=== PATIENT | female | born 1960 | race Caucasian/White ===

== ENCOUNTER 2017-11-17 20:31 | Emergency (ER) | payer MEDICARE ==
[~2017-11-17] VITALS: Ht 165.1 cm; Wt 60.0 kg
[2017-11-17 20:32] VITALS: BP 160/91; PULSE 112; RESP 18; TEMP 97.9; O2SAT 95
[2017-11-17 20:51] VITALS: BP 141/73; PULSE 107; RESP 20; TEMP 97.8; O2SAT 100
[2017-11-17] MEDS ORDERED: SODIUM CHLOR 0.9% 1000 ML INJ 1,000 ML IV SCH (20:51)
[2017-11-17] MEDS ORDERED: SODIUM CHLORIDE 0.9% FLUSH 10 ML FLUSH IV FLUSH PRN ×2 (21:00→21:15)
[2017-11-17] MEDS ORDERED: ONDANSETRON HCL 4 MG/2 ML VIAL IVP ONE (21:00)
[2017-11-17] MEDS ORDERED: MORPHINE SULFATE 4 MG/ML INJ IV PUSH ONE (21:00)
--- NOTE | 2017-11-17 21:42 | PD ---
HPI Chief Complaint: GI Complaint Time Seen by Provider: 20:48 Travel History International Travel<30 days: No Contact w/Intl Traveler<30days: No Traveled to known affect area: No History of Present Illness HPI The patient is a 57-year-old female presenting to emergency for evaluation of a rectal prolapse. Patient states that she was attempting to have a bowel movement this morning when she strained resulting in prolapse. Patient states it's painful and sore, she reports the pain is a 10 out of 10. There are no alleviating factors, it is exacerbated with any movement or sitting. Onset was sudden. Patient denies any history of GI issues. Patient states that she's been constipated lately. She reports a past medical history significant for COPD. [facility] Past Medical History COPD: Yes Medical other: Yes (PTSD) Influenza Vaccination: No ?: Not Past Surgical History Section: Yes Social History Alcohol Use: Yes (SOCIALLY ON THE WEEKENDS ) Tobacco Use: Yes (PACK A DAY ) Substance Use: No Allergies-Medications (Allergen,Severity, Reaction): Coded Allergies: No Known Allergies (Verified Allergy, Unknown, 11/17/17) Reported Meds & Prescriptions Reported Meds & Active Scripts Active Miralax Powder (Polyethylene Glycol 3350 Powder) 17 Gm Powd 17 Gm PO DAILY Mix and dissolve one measuring cap-ful (17 grams) in water or juice. Colace (Docusate Sodium) 100 Mg Capsule 1 Cap PO BID Review of Systems Except as stated in HPI: all other systems reviewed are Neg Gastrointestinal: Positive: Constipation, Other (rectal prolapse) Physical Exam Narrative GENERAL: Thin, well-developed, alert female. Appears uncomfortable, in no acute distress. SKIN: Warm and dry. HEAD: Atraumatic. Normocephalic. EYES: Pupils equal and round. No scleral icterus. No injection or drainage. ENT: No nasal bleeding or discharge. Mucous membranes pink and moist. NECK: Trachea midline. No JVD. CARDIOVASCULAR: Tachycardic. RESPIRATORY: No accessory muscle use. Clear to auscultation. Breath sounds equal bilaterally. GASTROINTESTINAL: Abdomen soft, non-tender, nondistended. Hepatic and splenic margins not palpable. Approximately 4 cm of pink bowel protruding from the anus , no bleeding noted. Positive bowel sounds. MUSCULOSKELETAL: Extremities without clubbing, cyanosis, or edema. No obvious deformities. NEUROLOGICAL: Awake and alert. No obvious cranial nerve deficits. Motor grossly within normal limits. Five out of 5 muscle strength in the arms and legs. Normal speech. PSYCHIATRIC: Appropriate mood and affect; insight and judgment normal. Data Data Last Documented VS Vital Signs Date Time Temp Pulse Resp B/P (MAP) Pulse Ox O2 Delivery O2 Flow Rate FiO2 11/17/17 20:51 97.8 107 20 141/73 (95) 100 Room Air Orders Orders Iv Access Insert/Monitor (11/17/17 20:51) Ecg Monitoring (11/17/17 20:51) Oximetry (11/17/17 20:51) Morphine Inj (Morphine Inj) (11/17/17 21:00) Ondansetron Inj (Zofran Inj) (11/17/17 21:00) Sodium Chlor 0.9% 1000 Ml Inj (Ns 1000 M (11/17/17 20:51) Sodium Chloride 0.9% Flush (Ns Flush) (11/17/17 21:00) Complete Blood Count With Diff (11/17/17 21:09) Comprehensive Metabolic Panel (11/17/17 21:09) Prothrombin Time / Inr (Pt) (11/17/17 21:09) Act Partial Throm Time (Ptt) (11/17/17 21:09) Abdomen, Flat & Upright (11/17/17 ) Sodium Chloride 0.9% Flush (Ns Flush) (11/17/17 21:15) Ed Discharge Order (11/17/17 22:46) Labs Laboratory Tests Test 11/17/17 21:00 Prothrombin Time 14.0 SEC Prothromb Time International Ratio 1.4 RATIO Activated Partial Thromboplast Time 27.3 SEC Blood Urea Nitrogen 5 MG/DL Creatinine 0.47 MG/DL Random Glucose 131 MG/DL Total Protein 7.8 GM/DL Albumin 2.9 GM/DL Calcium Level 8.8 MG/DL Alkaline Phosphatase 289 U/L Aspartate Amino Transf (AST/SGOT) 210 U/L Alanine Aminotransferase (ALT/SGPT) 83 U/L Total Bilirubin 2.6 MG/DL Sodium Level 141 MEQ/L Potassium Level 3.4 MEQ/L Chloride Level 106 MEQ/L Carbon Dioxide Level 29.8 MEQ/L Anion Gap 5 MEQ/L Estimat Glomerular Filtration Rate 137 ML/MIN MDM Medical Decision Making Medical Screen Exam Complete: Yes Emergency Medical Condition: Yes Interpretation(s) Last Impressions Abdomen X-Ray 11/17/17 0000 Signed Impressions: Service Date/Time: Friday, November 17, 2017 21:32 - CONCLUSION: Mildly distended gas-filled loops of small bowel within the left upper quadrant. This is a nonspecific pattern. 1.4 cm right renal stone. Steve King Jr., MD Laboratory Tests Test 11/17/17 21:00 Prothrombin Time 14.0 SEC Prothromb Time International Ratio 1.4 RATIO Activated Partial Thromboplast Time 27.3 SEC Blood Urea Nitrogen 5 MG/DL Creatinine 0.47 MG/DL Random Glucose 131 MG/DL Total Protein 7.8 GM/DL Albumin 2.9 GM/DL Calcium Level 8.8 MG/DL Alkaline Phosphatase 289 U/L Aspartate Amino Transf (AST/SGOT) 210 U/L Alanine Aminotransferase (ALT/SGPT) 83 U/L Total Bilirubin 2.6 MG/DL Sodium Level 141 MEQ/L Potassium Level 3.4 MEQ/L Chloride Level 106 MEQ/L Carbon Dioxide Level 29.8 MEQ/L Anion Gap 5 MEQ/L Estimat Glomerular Filtration Rate 137 ML/MIN Vital Signs Date Time Temp Pulse Resp B/P (MAP) Pulse Ox O2 Delivery O2 Flow Rate FiO2 11/17/17 20:51 97.8 107 20 141/73 (95) 100 Room Air 11/17/17 20:32 97.9 112 18 160/91 (114) 95 Room Air Differential Diagnosis Rectal prolapse versus bowel obstruction versus intussusception versus other Narrative Course Patient is a 57 year old female that presented to the emergency department evaluation of rectal prolapse that occurred this morning and attempted to have a bowel movement. Patient was tachycardic on arrival and appeared to be in pain. IV access established, patient was premedicated with morphine and Zofran and 1 L of IV fluids. After patient was given pain medication prolapse rectum was gently guided back into the anus. Labs and imaging ordered and pending. Patient's is at bedside. Patient appears to be resting comfortably. Abdominal xray shows mildly distended gas-filled loops of small bowel in the left upper quadrant. This is nonspecific. 1.4 centimeter right renal stone. Chemistry with elevated AST and ALT at 210 and 83 Patient was able to ambulate without any recurrence of prolapse. Patient will be provided with prescriptions for bowel regimen. She was encouraged to increase fluid intake, avoid any narcotic medications. She was encouraged to follow-up with her primary doctor and GI specialist in the next 2-3 days. Additionally patient was given strict return precautions. She was encouraged to return immediately for any new or worsening symptoms. Patient verbalized understanding of these instructions. Patient is stable for discharge. Findings and plan of care were discussed with attending physician. Diagnosis Primary Impression: Rectal prolapse Additional Impressions: Constipation Qualified Codes: K59.00 - Constipation, unspecified Abnormal LFTs (liver function tests) Referrals: Policy Cancellation Clerk 2 days Primary Care Physician 2 days Patient Instructions: Constipation (ED), General Instructions, Rectal Prolapse (ED) Additional Instructions: Follow up with Policy Cancellation Clerk Follow up with your primary care provider Maintain adequate fluid intake Take medications as directed. Return to the Emergency department for any new or worsening symptoms as discussed. Your liver enzymes were elevated in the emergency department, please discussed with her primary doctor. Med/Other Pt SpecificInfo: Prescription(s) given Scripts Polyethylene Glycol 3350 Powder (Miralax Powder) 17 Gm Powd 17 GM PO DAILY for Constipation, #1 CAN 1 Refill Mix and dissolve one measuring cap-ful (17 grams) in water or juice. Prov: Amy Scruggs 11/17/17 Docusate Sodium (Colace) 100 Mg Capsule 1 CAP PO BID, #60 Prov: Amy Scruggs 11/17/17 Disposition: 01 DISCHARGE HOME Condition: Stable Amy Scruggs Nov 17, 2017 21:42
[2017-11-17 21:58] LABS: INTERNATIONAL NORMALIZED RATIO 1.4 RATIO
--- NOTE | 2017-11-17 22:03 | RADRPT ---
EXAM DATE/TIME: 11/17/2017 21:32 [facility] COMPARISON: No previous studies available for comparison. INDICATIONS : Abdominal pain, in lower abdomen. MEDICAL HISTORY : None. SURGICAL HISTORY : None. ENCOUNTER: Initial ACUITY: 1 day PAIN SCORE: 8/10 LOCATION: Bilateral abdomen FINDINGS: Supine and upright views of the abdomen show mildly distended gas-filled loops of small bowel within the left upper quadrant. No gross dilatation. Colon is normal in caliber. Gas and stool seen to the l evel of the rectal vault. No air-fluid levels or pneumoperitoneum. A 1.4 cm calcification projects ov er the renal hilum on the right. The left renal contour is obscured. Bony structures are unremarkable . No organomegaly. Lung bases are clear. CONCLUSION: Mildly distended gas-filled loops of small bowel within the left upper quadrant. This is a nonspecifi c pattern. 1.4 cm right renal stone. Steve King Jr., MD on November 17, 2017 at 22:00 Board Certified Radiologist. This report was verified electronically.
[2017-11-17 22:05] LABS: ALBUMIN 2.9 GM/DL (3.4-5.0); AST (GOT) 210 U/L (15-37); BICARBONATE 29.8 MEQ/L (21.0-32.0); BLOOD UREA NITROGEN 5 MG/DL (7-18); CALCIUM 8.8 MG/DL (8.5-10.1); CHLORIDE 106 MEQ/L (98-107); CREATININE 0.47 MG/DL (0.50-1.00); GLOMERULAR FILTRATION RATE 137 ML/MIN (>89); GLUCOSE,RANDOM 131 MG/DL (74-106); SODIUM (NA) 141 MEQ/L (136-145)
[2017-11-17 22:10] LABS: ALKALINE PHOSPHATASE 289 U/L (45-117); ALT (GPT) 83 U/L (10-53); TOTAL BILIRUBIN ADULT 2.6 MG/DL (0.2-1.0); TOTAL PROTEIN 7.8 GM/DL (6.4-8.2)
[2017-11-17] MEDS ORDERED: MIRA3350 PO (22:46)
[2017-11-17] MEDS ORDERED: COLA100C5 PO (22:46)
[2017-11-17 22:54] LABS: AUTOMATED NEUTROPHIL # 1.9 TH/MM3 (1.8-7.7); BASOPHIL % 1.2 % (0.0-2.0); EOSINOPHIL % 1.3 % (0.0-4.0); HEMATOCRIT 41.7 % (35.0-46.0); HEMOGLOBIN 14.2 GM/DL (11.6-15.3); LYMPH % 40.1 % (9.0-44.0); LYMPHOCYTE # 1.5 TH/MM3 (1.0-4.8); MEAN CELL VOLUME 102.3 FL (80.0-100.0); MEAN CORPUSCULAR HEMOGLOBIN 34.9 PG (27.0-34.0); MEAN CORPUSCULAR HGB CONC 34.1 % (32.0-36.0); MEAN PLATELET VOLUME 8.1 FL (7.0-11.0); MONO % 6.5 % (0.0-8.0); MONOCYTE # 0.2 TH/MM3 (0-0.9); NEUT % 50.9 % (16.0-70.0); PLATELET COUNT 77 TH/MM3 (150-450); RED BLOOD COUNT 4.07 MIL/MM3 (4.00-5.30); RED CELL DISTRIBUTION WIDTH 16.7 % (11.6-17.2); WHITE BLOOD COUNT 3.7 TH/MM3 (4.0-11.0)
== END 2017-11-17 22:58 | disposition home or self-care (01) ==
LOC: NEPC 20:31
DX: K62.3 Rectal prolapse (principal); K59.00 Constipation, unspecified; R79.89 Other specified abnormal findings of blood chemistry; F17.200 Nicotine dependence, unspecified, uncomplicated; Z87.09 Personal history of other diseases of the respiratory system; Z86.59 Personal history of other mental and behavioral disorders
CPT/HCPCS: 74019; 80053; 85025; 85610; 85730; 96374; 96375; 99284; J2270; J2405; J7030

== ENCOUNTER 2017-12-09 20:02 | Inpatient (IN) | payer OTHER, MEDICARE ==
[~2017-12-09] VITALS: Ht 165.1 cm; Wt 63.6 kg
[~2017-12-09 20:02] MED LIST: COLA100C5 PO; MIRA3350 PO
[2017-12-09 20:04] VITALS: BP 140/65; PULSE 96; RESP 16; TEMP 98.1; O2SAT 96
[2017-12-09 20:23] VITALS: BP 118/56; PULSE 96; RESP 18; O2SAT 99
[2017-12-09] MEDS ORDERED: GABA600T PO (20:23)
--- NOTE | 2017-12-09 20:43 | PD ---
HPI Chief Complaint: Abdominal Pain Time Seen by Provider: 20:38 Travel History International Travel<30 days: No Contact w/Intl Traveler<30days: No Traveled to known affect area: No History of Present Illness HPI 57-year-old female presents to the emergency department for 1 week of left- sided abdominal pain and red blood per rectum with recent diagnosis of rectal prolapse with multiple episodes of prolapsing of the rectum that is able to be manually reduced by the patient. Patient has history of COPD tobaccoism alcohol use and is followed by the [facility]. Patient has made an appointment to follow-up with a colorectal surgeon but does not have the appointment until December. Patient reports that she has had mild temperature elevation of 99F. Patient has had nausea without vomiting. Patient states due to her pain and episodes of rectal prolapse she has decreased oral intake. Patient rates her current pain to the left lower quadrant 8/10 in intensity. PFSH Past Medical History Narrative Medical COPD, posttraumatic stress disorder, lung cancer with metastasis (declined treatment x 14 months per patient), ,tobacco use, alcohol use, nursing notes reviewed Cancer: Yes (LUNG WITH METS) COPD: Yes Gastrointestinal Disorders: Yes (RECTAL PROLAPSE) Tetanus Vaccination: < 5 Years Influenza Vaccination: Yes Past Surgical History Section: Yes Social History Alcohol Use: Yes (SOCIALLY ON THE WEEKENDS ) Tobacco Use: Yes (PACK A DAY ) Substance Use: No Allergies-Medications (Allergen,Severity, Reaction): Coded Allergies: No Known Allergies (Verified Allergy, Unknown, 11/17/17) Reported Meds & Prescriptions Reported Meds & Active Scripts Active Reported Gabapentin 600 Mg Tab 600 Mg PO BID Review of Systems Except as stated in HPI: all other systems reviewed are Neg General / Constitutional: Positive: Fever (Subjective) Eyes: No: Diploplia HENT: No: Headaches Cardiovascular: No: Chest Pain or Discomfort Respiratory: No: Shortness of Breath Gastrointestinal: Positive: Nausea, Abdominal Pain, Hematochezia Genitourinary: No: Dysuria Musculoskeletal: No: Myalgias, Arthralgias Neurologic: No: Weakness Psychiatric: Positive: Anxiety Hematologic/Lymphatic: No: Lymph Node Enlargement Physical Exam Narrative GENERAL: Well-developed well-nourished female in no acute distress no respiratory distress SKIN: Warm and dry. HEAD: Normocephalic. EYES: No scleral icterus. No injection or drainage. NECK: Supple, trachea midline. No JVD or lymphadenopathy. CARDIOVASCULAR: Regular rate and rhythm without murmurs, gallops, or rubs. RESPIRATORY: Breath sounds equal bilaterally. No accessory muscle use. GASTROINTESTINAL: Abdomen soft, left lower quadrant tenderness to palpation without guarding or rebound, nondistended. Rectal exam: MUSCULOSKELETAL: No cyanosis, or edema. BACK: Nontender without obvious deformity. No CVA tenderness. Data Data Last Documented VS Vital Signs Date Time Temp Pulse Resp B/P (MAP) Pulse Ox O2 Delivery O2 Flow Rate FiO2 12/10/17 00:00 84 16 122/59 (80) 95 Room Air 12/09/17 20:04 98.1 Orders Orders Complete Blood Count With Diff (12/09/17 20:23) Basic Metabolic Panel (Bmp) (12/09/17 20:23) Lipase (12/09/17 20:23) Electrocardiogram (12/09/17 ) Iv Access Insert/Monitor (12/09/17 20:23) Urinalysis - C+S If Indicated (12/09/17 20:23) Prothrombin Time / Inr (Pt) (12/09/17 20:24) Act Partial Throm Time (Ptt) (12/09/17 20:24) Type And Screen (12/09/17 20:26) Ct Abd/Pel W Iv Contrast(Rout) (12/09/17 ) Chest, Single Ap (12/09/17 ) Ondansetron Inj (Zofran Inj) (12/09/17 21:00) Morphine Inj (Morphine Inj) (12/09/17 21:00) Iohexol 350 Inj (Omnipaque 350 Inj) (12/09/17 22:15) Potassium Chlor 10 Meq Premix (Kcl 10 Me (12/09/17 22:30) Urine Culture (12/09/17 21:35) Blood Culture (12/09/17 22:57) Lactic Acid (12/09/17 22:57) Piperacil-Tazo 4.5 Gm Premix (Zosyn 4.5 (12/09/17 23:00) Admit Order (Ed Use Only) (12/10/17 ) Tubing Supervisor / Telemetry DALE.[email or web address] (12/10/17 00:37) Diet Npo (12/10/17 Breakfast) Activity Oob With Assistance (12/10/17 00:37) Notify Dr: Other (12/10/17 00:37) Ondansetron Inj (Zofran Inj) (12/10/17 00:45) Morphine Inj (Morphine Inj) (12/10/17 00:45) Labs Laboratory Tests Test 12/09/17 20:30 12/09/17 21:35 12/09/17 23:15 White Blood Count 4.9 TH/MM3 Red Blood Count 3.74 MIL/MM3 Hemoglobin 13.3 GM/DL Hematocrit 37.6 % Mean Corpuscular Volume 100.7 FL Mean Corpuscular Hemoglobin 35.7 PG Mean Corpuscular Hemoglobin Concent 35.4 % Red Cell Distribution Width 15.2 % Platelet Count 87 TH/MM3 Mean Platelet Volume 8.2 FL Neutrophils (%) (Auto) 60.0 % Lymphocytes (%) (Auto) 29.2 % Monocytes (%) (Auto) 7.3 % Eosinophils (%) (Auto) 2.2 % Basophils (%) (Auto) 1.3 % Neutrophils # (Auto) 2.9 TH/MM3 Lymphocytes # (Auto) 1.4 TH/MM3 Monocytes # (Auto) 0.4 TH/MM3 Eosinophils # (Auto) 0.1 TH/MM3 Basophils # (Auto) 0.1 TH/MM3 CBC Comment AUTO DIFF Differential Comment AUTO DIFF CONFIRMED Platelet Estimate LOW Platelet Morphology Comment NORMAL Prothrombin Time 13.7 SEC Prothromb Time International Ratio 1.4 RATIO Activated Partial Thromboplast Time 26.8 SEC Blood Urea Nitrogen 11 MG/DL Creatinine 0.54 MG/DL Random Glucose 109 MG/DL Calcium Level 8.6 MG/DL Sodium Level 139 MEQ/L Potassium Level 2.9 MEQ/L Chloride Level 105 MEQ/L Carbon Dioxide Level 26.2 MEQ/L Anion Gap 8 MEQ/L Estimat Glomerular Filtration Rate 117 ML/MIN Lipase 123 U/L Urine Color YELLOW Urine Turbidity HAZY Urine pH 6.0 Urine Specific [place] 1.015 Urine Protein NEG mg/dL Urine Glucose (UA) NEG mg/dL Urine Ketones NEG mg/dL Urine Occult Blood TRACE Urine Nitrite NEG Urine Bilirubin NEG Urine Urobilinogen GREATER THAN 12.0 MG/DL Urine Leukocyte Esterase TRACE Urine RBC 2 /hpf Urine WBC 2 /hpf Urine Squamous Epithelial Cells 4 /hpf Urine Amorphous Sediment RARE Urine Bacteria MANY /hpf Urine Mucus FEW /lpf Microscopic Urinalysis Comment CULTURE INDICATED Lactic Acid Level 1.5 mmol/L MDM Medical Decision Making Medical Screen Exam Complete: Yes Emergency Medical Condition: Yes Medical Record Reviewed: Yes Interpretation(s) EKG: Normal sinus rhythm rate [address] elevation injury pattern or ectopy noted Last Impressions Chest X-Ray 12/09/17 0000 Signed Impressions: Service Date/Time: Saturday, December 09, 2017 21:02 - CONCLUSION: The lungs are clear. Steve Alamo MD Abdomen/Pelvis CT 12/09/17 0000 Signed Impressions: Service Date/Time: Saturday, December 09, 2017 22:10 - CONCLUSION: 1. Abnormal appearance of the gallbladder with distention, thickened wall, possible pericholecystic fluid, and a 11 mm calcified stone near the neck. 2. Findings suggest pelvic congestion syndrome with multiple prominent varices in the cul-de-sac and free fluid in the right dependent pelvis. 3. Questionable wall thickening in the right colon and cecum. 4. Dilation of the duodenal C-loop is of uncertain significance. There is no dilation of the remainder of the small bowel. 5. Focal parenchymal opacity in the right costophrenic angle characterized by increased ground substance. Steve Alamo MD CBC & BMP Diagram 12/09/17 20:30 Calcium Level 8.6 Vital Signs Date Time Temp Pulse Resp B/P (MAP) Pulse Ox O2 Delivery O2 Flow Rate FiO2 12/10/17 00:00 84 16 122/59 (80) 95 Room Air 12/09/17 22:00 78 16 120/57 (78) 98 Room Air 12/09/17 20:23 96 18 118/56 (76) 99 Room Air 12/09/17 20:04 98.1 96 16 140/65 (90) 96 Differential Diagnosis Abdominal pain, rectal prolapse, colitis, diverticulitis, ischemic colitis, also to consider intussusception, volvulus, dehydration Narrative Course IV access obtained specimens collected and sent for resulting patient administered morphine sulfate 1 dose and Zofran Patient administered IV fluids Patient identified to have normal CBC with normal range differential and thrombocytopenia; chemistries remarkable for hypo-kalemia and urinalysis was abnormal with bacteria CT abdomen pelvis performed and remarkable for gallbladder wall thickening without pericholecystic fluid and 1.1 cm stone at the gallbladder neck. Pancreas appeared normal and appendix appeared normal however patient was identified to have intestinal inflammatory changes as well as pelvic varices and pelvic congestion with fluid in the pelvis no free air Patient with history of lung cancer with metastatic disease has refused surgery chemotherapy and radiation therapy with abnormal CT abdomen and pelvis with fluid in the pelvis also with recent rectal prolapse without evidence of acute prolapse at this time with hematochezia and passing blood clots will need admission for IV antibiotics and further evaluation of intestinal issues as well as DIVING SUPERVISOR evaluation for possible pelvic congestion syndrome and IV antibiotics and further evaluation for cholecystitis. Patient's case has been discussed with medicine service for admission. Physician Communication Physician Communication discussed with Dr Penny--admit to Dr Avila's aervice Diagnosis Primary Impression: Abdominal pain Additional Impressions: Cholecystitis Colitis Pelvic congestion syndrome Admitting Information Admitting Physician Requests: Admit Naida Herrera MD Dec 09, 2017 20:43
[2017-12-09] MEDS ORDERED: ONDANSETRON HCL 4 MG/2 ML VIAL IV PUSH ONE (21:00)
[2017-12-09] MEDS ORDERED: MORPHINE SULFATE 2 MG/ML INJ IV PUSH ONE (21:00)
--- NOTE | 2017-12-09 21:11 | RADRPT ---
EXAM DATE/TIME: 12/09/2017 21:02 [facility] COMPARISON: No previous studies available for comparison. INDICATIONS : Chest discomfort. MEDICAL HISTORY : Chronic obstructive pulmonary disease. Lung cancer with mets. SURGICAL HISTORY : None. ENCOUNTER: Initial ACUITY: 1 day PAIN SCORE: 2/10 LOCATION: Bilateral chest FINDINGS: A single view of the chest demonstrates the lungs to be symmetrically aerated without evidence of mas s, infiltrate or effusion. The cardiomediastinal contours are unremarkable. Osseous structures are intact. CONCLUSION: The lungs are clear. Steve Alamo MD on December 09, 2017 at 21:09 Board Certified Radiologist. This report was verified electronically.
[2017-12-09 21:14] LABS: BICARBONATE 26.2 MEQ/L (21.0-32.0); CALCIUM 8.6 MG/DL (8.5-10.1); CREATININE 0.54 MG/DL (0.50-1.00)
[2017-12-09 21:22] LABS: AUTOMATED NEUTROPHIL # 2.9 TH/MM3 (1.8-7.7); BASOPHIL # 0.1 TH/MM3 (0-0.2); BASOPHIL % 1.3 % (0.0-2.0); EOSINOPHIL # 0.1 TH/MM3 (0-0.4); EOSINOPHIL % 2.2 % (0.0-4.0); HEMATOCRIT 37.6 % (35.0-46.0); HEMOGLOBIN 13.3 GM/DL (11.6-15.3); LYMPH % 29.2 % (9.0-44.0); LYMPHOCYTE # 1.4 TH/MM3 (1.0-4.8); MEAN CELL VOLUME 100.7 FL (80.0-100.0); MEAN CORPUSCULAR HEMOGLOBIN 35.7 PG (27.0-34.0); MEAN CORPUSCULAR HGB CONC 35.4 % (32.0-36.0); MEAN PLATELET VOLUME 8.2 FL (7.0-11.0); MONO % 7.3 % (0.0-8.0); MONOCYTE # 0.4 TH/MM3 (0-0.9); PLATELET COUNT 87 TH/MM3 (150-450); RED BLOOD COUNT 3.74 MIL/MM3 (4.00-5.30); RED CELL DISTRIBUTION WIDTH 15.2 % (11.6-17.2); WHITE BLOOD COUNT 4.9 TH/MM3 (4.0-11.0)
[2017-12-09 21:25] LABS: INTERNATIONAL NORMALIZED RATIO 1.4 RATIO; PROTHROMBIN TIME - PATIENT 13.7 SEC (9.8-11.6)
[2017-12-09 22:00] VITALS: BP 120/57; PULSE 78; RESP 16; O2SAT 98
[2017-12-09] MEDS ORDERED: IOHEXOL 350 MG/ML 10 ML VIAL (for RAD DIAG) IVCONTRAST ONE (22:15)
[2017-12-09 22:29] LABS: AMORPHOUS SEDIMENT, URINE RARE; BACTERIA, URINE MANY /hpf; BLOOD, URINE TRACE (NEG); GLUCOSE,URINE NEG (NEG); KETONE, URINE NEG (NEG); MUCUS URINE FEW /lpf (OCC); NITRITE,URINE NEG (NEG); SQUAMOUS EPITHELIAL CELL URINE 4 /hpf (0-5); URINE COLOR YELLOW (YELLW/STRAW); URINE LEUKOCYTE ESTERASE TRACE (NEG)
[2017-12-09 22:30] LABS: BILIRUBIN, URINE NEG (NEG)
[2017-12-09] MEDS ORDERED: POTASSIUM CHLOR 10 MEQ PREMIX 100 ML IV ONE (22:30)
--- NOTE | 2017-12-09 22:32 | RADRPT ---
EXAM DATE/TIME: 12/09/2017 22:10 [facility] COMPARISON: No previous studies available for comparison. INDICATIONS : Epigastric pain radiating to left lower quadrant. IV CONTRAST: 77 cc Omnipaque 350 (iohexol) IV ORAL CONTRAST: No oral contrast ingested. RADIATION DOSE: 6.64 CTDIvol (mGy) MEDICAL HISTORY : Chronic obstructive pulmonary disease. Lung cancer with mets. Rectal prolapse. SURGICAL HISTORY : section. ENCOUNTER: Initial ACUITY: 1 day PAIN SCALE: 8/10 LOCATION: Left lower quadrant TECHNIQUE: Volumetric scanning of the abdomen and pelvis was performed. Using automated exposure control and ad justment of the mA and/or kV according to patient size, radiation dose was kept as low as reasonably achievable to obtain optimal diagnostic quality images. DICOM format image data is available electro nically for review and comparison. FINDINGS: LOWER LUNGS: Subsegmental area of increased ground substance in the lower lateral right lung. No evidence of pleu ral effusion. LIVER: Mild nodular contour to the surface of the right lobe of the liver. Homogeneous density without lesi on. There is no dilation of the biliary tree. The gallbladder is distended and there is suggestion of pericholecystic fluid. There is a 11 mm calcified stone in the region of the neck suggesting poss ible impacted stone.. SPLEEN: Normal size without lesion. PANCREAS: Within normal limits. KIDNEYS: Normal in size and shape. There is no mass, stone or hydronephrosis. ADRENAL GLANDS: Within normal limits. VASCULAR: There is no aortic aneurysm. BOWEL/MESENTERY: Mild dilation of the duodenal C-loop. No dilation of jejunum or ileum. Possible thickening of the w all of the right colon and cecum. Moderate amount of free fluid in the right dependent pelvis. ABDOMINAL WALL: Within normal limits. RETROPERITONEUM: There is no lymphadenopathy. BLADDER: No wall thickening or mass. REPRODUCTIVE: The uterus is normal size. There are numerous enlarged vessels in the cul-de-sac suggesting varices. INGUINAL: There is no lymphadenopathy or hernia. MUSCULOSKELETAL: Within normal limits for patient age. CONCLUSION: 1. Abnormal appearance of the gallbladder with distention, thickened wall, possible pericholecystic f luid, and a 11 mm calcified stone near the neck. 2. Findings suggest pelvic congestion syndrome with multiple prominent varices in the cul-de-sac and free fluid in the right dependent pelvis. 3. Questionable wall thickening in the right colon and cecum. 4. Dilation of the duodenal C-loop is of uncertain significance. There is no dilation of the remaind er of the small bowel. 5. Focal parenchymal opacity in the right costophrenic angle characterized by increased ground substa nce. Steve Alamo MD on December 09, 2017 at 22:24 Board Certified Radiologist. This report was verified electronically.
[2017-12-09] MEDS ORDERED: PIPERACIL-TAZO 4.5 GM PREMIX 100 ML IV ONE (23:00)
[2017-12-10] VITALS (11 sets, daily range): BP systolic 112–130; BP diastolic 53–67; PULSE 68–84; RESP 16–18; TEMP 97.7–98.8; O2SAT 93–97
--- NOTE | 2017-12-10 00:35 | EKG ---
Date Performed: 12/09/2017 Time Performed: 20:36:09 PTAGE: 57 years EKG: Sinus rhythm WITH SHORT ID INTERVAL WITH OCCASIONAL SUPRAVENTRICULAR PREMATURE COMPLEXES BORDERLINE ECG NO PREVIOUS TRACING DOCTOR: Reji Damon Interpretating Date/Time 12/10/2017 00:34:11
[2017-12-10] MEDS ORDERED: ONDANSETRON HCL 4 MG/2 ML VIAL IV PUSH ONE (00:45)
[2017-12-10] MEDS ORDERED: MORPHINE SULFATE 2 MG/ML INJ IV PUSH ONE (00:45)
[2017-12-10] MEDS ORDERED: SODIUM CHLOR 0.9% 1000 ML INJ 1,000 ML IV SCH (01:11)
[2017-12-10] MEDS ORDERED: SODIUM CHLORIDE 0.9% FLUSH 10 ML FLUSH IV FLUSH PRN (01:15)
--- NOTE | 2017-12-10 01:29 | HHI.HP ---
[facility] Service Family Medicine Primary Care Physician Roderick [facility] Admission Diagnosis abdominal pain/cholecystitis; colitis; hypokalemia; pelvic congestio Diagnoses: International Travel<30 Days: No Contact w/Intl Traveler<30days: No Known Affected Area: No History of Present Illness Mrs. Melgar is a 57-year-old female presenting to the ED with left lower quadrant abdominal pain of one week. Patient states that in late October she presented to the ED with bright red blood per rectum and anal pain and was diagnosed with rectal prolapse. There were no surgical issues at that time and she was educated on manually reducing her prolapse. She had been doing well since her discharge, however over the last week developed 10/10 sharp left lower quadrant abdominal pain that originated in her right upper quadrant. She states that the pain is constant and sharp. She states that taking Aleve and her prescribed medical marijuana are the only 2 things that alleviated her symptoms, but do not take her symptoms away completely. She states that food or liquids. The pain acutely worse. She denies any vomiting but does endorse nausea over this timeframe. She continues to have bright red blood per rectum that she quantifies as a half a cup of blood per day. On review of systems she endorses some chills, diaphoresis, shortness of breath, and intermittent hematuria. Otherwise she has no complaints and denies any chest pain or calf tenderness. (Gus Penny MD R2) History of Present Illness Patient seen and examined with residential specialist team this morning and patient states that she still is having some significant abdominal discomfort. During rounds, she had just received her pain medication and she states that her pain was rated a 5/10 which was down from an 8/10. She did have a bowel movement that she describes as loose without evidence of blood in her stool. She denies nausea or vomiting, she denies prolapse with her bowel movement this morning, she denies chest pain or palpitations. In summary this is a 57-year-old female with a history of recurrent rectal prolapse who comes in to the emergency department with diffuse abdominal pain. She describes the abdominal pain as sharp/stabbing that is worse after eating meals. She states it is worse in the right upper quadrant and left lower quadrant. She denies any fevers or chills but has been nauseated without emesis during this time. (Rhett Avila MD) Review of Systems Constitutional: COMPLAINS OF: Fever (subjective ), Chills, DENIES: Weight gain , Weight loss Eyes: DENIES: Blurred vision, Double Vision Ears, nose, mouth, throat: DENIES: Throat pain, Running Nose Respiratory: DENIES: Cough, Shortness of breath Cardiovascular: DENIES: Chest pain, Syncope Gastrointestinal: COMPLAINS OF: Abdominal pain, Bloody stools, Nausea, DENIES: Black stools, Constipation, Diarrhea, Vomiting Genitourinary: COMPLAINS OF: Hematuria, DENIES: Dysuria Musculoskeletal: COMPLAINS OF: Joint pain, Back pain Integumentary: DENIES: Rash Hematologic/lymphatic: DENIES: Lymphadenopathy Immunologic/allergic: DENIES: Urticaria Neurologic: DENIES: Headache Psychiatric: DENIES: Mood changes (Gus Penny MD R2) Past Family Social History Past Medical History Emphysema Small cell lung cancer, declines treatment Cirrhosis of the liver Hepatitis C Past Surgical History C section (Gus Penny MD R2) Allergies: Coded Allergies: No Known Allergies (Verified Allergy, Unknown, 11/17/17) Family History Father - CAD Mother - Brain malignancy Siblings - DM, breast cancer, colon cancer, mesothelioma, CAD Social History Moved recently to [place]. Tobacco - 40 years 1ppd Alcohol - Occasional drinker, 1-2 per week, 2 drinks per time Illicit - Marijuana, otherwise reports no history (Gus Penny MD R2) Physical Exam Vital Signs Vital Signs Date Time Temp Pulse Resp B/P (MAP) Pulse Ox O2 Delivery O2 Flow Rate FiO2 12/10/17 00:00 84 16 122/59 (80) 95 Room Air 12/09/17 22:00 78 16 120/57 (78) 98 Room Air 12/09/17 20:23 96 18 118/56 (76) 99 Room Air 12/09/17 20:04 98.1 96 16 140/65 (90) 96 Physical Exam GENERAL: Well-nourished, well-developed female lying in bed in no acute distress. SKIN: Warm and dry. No rash. Hyperpigmented with multiple tattoos. HEENT: Atraumatic, normocephalic with extraocular motions intact. No rhinorrhea. No visible lymphadenopathy or jugulovenous distension appreciated. CARDIOVASCULAR: Regular rate and rhythm without obvious murmurs, gallops, or rubs. 2+ pulses in all four extremities. RESPIRATORY: Clear to auscultation bilaterally with no crackles, wheezes, or rhonchi. No increased work of breathing. GASTROINTESTINAL: Abdomen soft, nondistended with positive bowel sounds. Patient tender to palpation in all 4 quadrants, focally in the right upper quadrant. Positive Ramirez sign. Negative rebound tenderness. Negative fluid wave. No masses appreciated. MUSCULOSKELETAL: No cyanosis or edema. No calf tenderness. Ambulating well per her report. NEURO/PSYCH: Afocal. Awake, alert, and oriented x3. Normal speech and judgement. Laboratory Laboratory Tests Test 12/09/17 20:30 12/09/17 21:35 12/09/17 23:15 White Blood Count 4.9 Red Blood Count 3.74 Hemoglobin 13.3 Hematocrit 37.6 Mean Corpuscular Volume 100.7 Mean Corpuscular Hemoglobin 35.7 Mean Corpuscular Hemoglobin Concent 35.4 Red Cell Distribution Width 15.2 Platelet Count 87 Mean Platelet Volume 8.2 Neutrophils (%) (Auto) 60.0 Lymphocytes (%) (Auto) 29.2 Monocytes (%) (Auto) 7.3 Eosinophils (%) (Auto) 2.2 Basophils (%) (Auto) 1.3 Neutrophils # (Auto) 2.9 Lymphocytes # (Auto) 1.4 Monocytes # (Auto) 0.4 Eosinophils # (Auto) 0.1 Basophils # (Auto) 0.1 CBC Comment AUTO DIFF Differential Comment AUTO DIFF CONFIRMED Platelet Estimate LOW Platelet Morphology Comment NORMAL Prothrombin Time 13.7 Prothromb Time International Ratio 1.4 Activated Partial Thromboplast Time 26.8 Blood Urea Nitrogen 11 Creatinine 0.54 Random Glucose 109 Calcium Level 8.6 Sodium Level 139 Potassium Level 2.9 Chloride Level 105 Carbon Dioxide Level 26.2 Anion Gap 8 Estimat Glomerular Filtration Rate 117 Lipase 123 Urine Color YELLOW Urine Turbidity HAZY Urine pH 6.0 Urine Specific [place] 1.015 Urine Protein NEG Urine Glucose (UA) NEG Urine Ketones NEG Urine Occult Blood TRACE Urine Nitrite NEG Urine Bilirubin NEG Urine Urobilinogen GREATER THAN 12.0 Urine Leukocyte Esterase TRACE Urine RBC 2 Urine WBC 2 Urine Squamous Epithelial Cells 4 Urine Amorphous Sediment RARE Urine Bacteria MANY Urine Mucus FEW Microscopic Urinalysis Comment CULTURE INDICATED Lactic Acid Level 1.5 Date/Time Source Procedure Growth Status 12/09/17 23:15 Blood Peripheral Aerobic Blood Culture Pending Received 12/09/17 23:15 Blood Peripheral Anaerobic Blood Culture Pending Received 12/09/17 21:35 Urine Clean Catch Urine Culture Pending Received (Gus Penny MD R2) Physical Exam General: Cachectic female lying in bed in no obvious distress Skin: No obvious lesions, rashes, or defects CV: Regular rate and rhythm without murmur Respiratory: Clear to auscultation bilaterally with no crackles, wheezes, or rhonchi GI: Abdomen diffusely tender to palpation, but worse pain in right upper quadrant and left lower quadrant without rebound or guarding. Positive Ramirez sign with palpation. No masses appreciated. Bowel sounds present in all quadrants Rectal: External hemorrhoids without fissure or prolapse MSK: No cyanosis or edema of lower extremities (Rhett Avila MD) Result Diagram: 12/09/17202912/09/172029 Imaging Last 72 hours Impressions Chest X-Ray 12/09/17 Signed Impressions: Service Date/Time: Saturday, December 09, 2017 21:02 - CONCLUSION: The lungs are clear. Steve Alamo MD Abdomen/Pelvis CT 12/09/17 Signed Impressions: Service Date/Time: Saturday, December 09, 2017 22:10 - CONCLUSION: 1. Abnormal appearance of the gallbladder with distention, thickened wall, possible pericholecystic fluid, and a 11 mm calcified stone near the neck. 2. Findings suggest pelvic congestion syndrome with multiple prominent varices in the cul-de-sac and free fluid in the right dependent pelvis. 3. Questionable wall thickening in the right colon and cecum. 4. Dilation of the duodenal C-loop is of uncertain significance. There is no dilation of the remainder of the small bowel. 5. Focal parenchymal opacity in the right costophrenic angle characterized by increased ground substance. Steve Alamo MD (Gus Penny MD R2) Caprini VTE Risk Assessment Caprini VTE Risk Assessment: Mod/High Risk (score >= 2) Caprini Risk Assessment Model Point Value = 1 Point Value = 2 Point Value = 3 Point Value = 5 Age 41-60 Minor surgery BMI > 25 kg/m2 Swollen legs Varicose veins or History of unexplained or recurrent spontaneous Oral contraceptives or hormone replacement Sepsis (< 1 month) Serious lung disease, including pneumonia (< 1 month) Abnormal pulmonary function Acute myocardial infarction Congestive heart failure (< 1 month) History of inflammatory bowel disease Medical patient at bed rest Age 61-74 Arthroscopic surgery Major open surgery (> 45 min) Laparoscopic surgery (> 45 min) Malignancy Confined to bed (> 72 hours) Immobilizing plaster cast Central venous access Age >= 75 History of VTE Family history of VTE Factor V Leiden Prothrombin [id number] Lupus anticoagulant Anticardiolipin antibodies Elevated serum homocysteine Heparin-induced thrombocytopenia Other congenital or acquired thrombophilia Stroke (< 1 month) Elective arthroplasty Hip, pelvis, or leg fracture Acute spinal cord injury (< 1 month) Prophylaxis Regimen Total Risk Factor Score Risk Level Prophylaxis Regimen 0-1 Low Early ambulation 2 Moderate Order ONE of the following: *Sequential Compression Device (SCD) *Heparin 5000 units SQ BID 3-4 Higher Order ONE of the following medications: *Heparin 5000 units SQ TID *Enoxaparin/Lovenox 40 mg SQ daily (WT < 150 kg, CrCl > 30 mL/min) *Enoxaparin/Lovenox 30 mg SQ daily (WT < 150 kg, CrCl > 10-29 mL/min) *Enoxaparin/Lovenox 30 mg SQ BID (WT < 150 kg, CrCl > 30 mL/min) AND/OR *Sequential Compression Device (SCD) 5 or more Highest Order ONE of the following medications: *Heparin 5000 units SQ TID (Preferred with Epidurals) *Enoxaparin/Lovenox 40 mg SQ daily (WT < 150 kg, CrCl > 30 mL/min) *Enoxaparin/Lovenox 30 mg SQ daily (WT < 150 kg, CrCl > 10-29 mL/min) *Enoxaparin/Lovenox 30 mg SQ BID (WT < 150 kg, CrCl > 30 mL/min) AND *Sequential Compression Device (SCD) (Gus Penny MD R2) Assessment and Plan Assessment and Plan Mrs. Melgar is a 57-year-old female presenting with abdominal pain found to have acute calculous cholecystitis. Code Status DNR Discussed Condition With LAILA Redd MD (Gus Penny MD R2) Attending Attestation THIS CASE WAS DISCUSSED WITH THE RESIDENT PHYSICIANS. I HAVE REVIEWED THE RECORD AND AGREE WITH THE ABOVE NOTE AND PLAN OF CARE WAS DISCUSSED. I HAVE AUTHORIZED THE ORDER FOR ADMISSION TO AN IN-PATIENT STATUS. (Rhett Avila MD) Problem List: (1) Acute calculous cholecystitis ICD Codes: K80.00 - Calculus of gallbladder with acute cholecystitis without obstruction Status: Acute Plan: -Abdominal CT: Abnormal appearance of the gallbladder with distention, thickened wall, possible pericholecystic fluid, and a 11 mm calcified stone near the neck. -Patient currently is low risk with no leukocytosis or fever -Toradol scheduled with as needed morphine for pain -Patient received Zosyn and 1 L normal saline bolus in ED -Ceftriaxone and Flagyl antibiotics started (12/10/17- ) -Blood cultures pending -Normal saline at 108 mL per hour -Patient to remain nothing by mouth for possible procedure -Gen. surgery consulted, appreciate recommendations (2) Pelvic congestion syndrome ICD Codes: N94.89 - Other specified conditions associated with female genital organs and menstrual cycle Status: Acute Plan: -Abdominal CT:Findings suggest pelvic congestion syndrome with multiple prominent varices in the cul-de-sac and free fluid in the right dependent pelvis. -Patient denies pain or vulvar varices -Continue to monitor (3) Colitis ICD Codes: K52.9 - Noninfective gastroenteritis and colitis, unspecified Status: Acute Plan: -Abdominal CT:Questionable wall thickening in the right colon and cecum. Dilation of the duodenal C-loop is of uncertain significance. There is no dilation of the remainder of the small bowel. -Antibiotics and fluids as above (4) Hypokalemia ICD Codes: E87.6 - Hypokalemia Status: Acute Plan: -Potassium 2.9 on admission -Patient received 10 mEq of potassium IV in the ED -Potassium phosphate 30 mEq ordered IV -Continue to monitor with magnesium (5) Cirrhosis ICD Codes: K74.60 - Unspecified cirrhosis of liver Status: Chronic Plan: -Patient states she has previously been diagnosed with cirrhosis secondary to hepatitis C infection -CT abdomen as above -UA: Urobilinogen greater than 12 (6) Small cell lung cancer ICD Codes: C34.90 - Malignant neoplasm of unspecified part of unspecified bronchus or lung Status: Chronic Plan: -Patient with reported history of small cell lung cancer -Patient refused treatment at diagnosis in 2017 and does not wish to pursue treatment options at this time -Chest x-ray with no acute disease (7) Nutrition, metabolism, and development symptoms ICD Codes: R63.8 - Other symptoms and signs concerning food and fluid intake Status: Acute Plan: -Fluids: Normal saline at 108 mL per hour -Diet: Patient to be nothing by mouth for possible surgical procedure -Electrolytes: Hypokalemia as above, continue to monitor (8) Surgical contraindication to deep vein thrombosis (DVT) prophylaxis ICD Codes: Z53.09 - Procedure and treatment not carried out because of other contraindication Status: Acute Plan: -Hold medical prophylaxis due to possible surgical intervention -SCDs (Gus Penny MD R2) Problem List: (1) Acute calculous cholecystitis ICD Codes: K80.00 - Calculus of gallbladder with acute cholecystitis without obstruction Status: Acute Plan: CT of the abdomen and pelvis shows an 11 mm calcified stone in the region of the neck suggesting possible impacted stone with a distended gallbladder and pericholecystic fluid suggestive IV antibiotics: Rocephin 1 g IV every 12 hours Flagyl 500 mg IV every 8 hours -Received Zosyn 1 dose in the emergency department Toradol scheduled with as needed morphine for pain Blood cultures pending Normal saline at 108 mL per hour Patient to remain nothing by mouth for possible procedure Gen. surgery consulted, appreciate recommendations (2) Pelvic congestion syndrome ICD Codes: N94.89 - Other specified conditions associated with female genital organs and menstrual cycle Status: Acute Plan: Abdominal CT:Findings suggest pelvic congestion syndrome with multiple prominent varices in the cul-de-sac and free fluid in the right dependent pelvis. -Patient denies pain or vulvar varices -Continue to monitor (3) Colitis ICD Codes: K52.9 - Noninfective gastroenteritis and colitis, unspecified Status: Acute Plan: Abdominal CT:Questionable wall thickening in the right colon and cecum. Dilation of the duodenal C-loop is of uncertain significance. There is no dilation of the remainder of the small bowel. -Antibiotics and fluids as above (4) Hypokalemia ICD Codes: E87.6 - Hypokalemia Status: Acute Plan: -Potassium 2.9 on admission -Patient received 10 mEq of potassium IV in the ED -Potassium phosphate 30 mEq ordered IV -Continue to monitor with magnesium (5) Cirrhosis ICD Codes: K74.60 - Unspecified cirrhosis of liver Status: Chronic Plan: Chronic hepatitis C infection leading to cirrhosis that is being worked up by the [facility] -She is treatment taylor for her hepatitis but is going to the process with the [facility] for treatment -UA: Urobilinogen greater than 12 (6) Small cell lung cancer ICD Codes: C34.90 - Malignant neoplasm of unspecified part of unspecified bronchus or lung Status: Chronic Plan: Patient with reported history of small cell lung cancer -Patient refused treatment at diagnosis in 2017 and does not wish to pursue treatment options at this time -Chest x-ray with no acute disease (7) Nutrition, metabolism, and development symptoms ICD Codes: R63.8 - Other symptoms and signs concerning food and fluid intake Status: Acute Plan: -Fluids: Normal saline at 108 mL per hour -Diet: Patient to be nothing by mouth for possible surgical procedure -Electrolytes: Hypokalemia as above, continue to monitor (8) Surgical contraindication to deep vein thrombosis (DVT) prophylaxis ICD Codes: Z53.09 - Procedure and treatment not carried out because of other contraindication Status: Acute Plan: -Hold medical prophylaxis due to possible surgical intervention -SCDs (Rhett Avila MD) Physician Certification 2 Midnight Certification Type: Admission for Inpatient Services Order for Inpatient Services The services are ordered in accordance with Medicare regulations or non- Medicare payer requirements, as applicable. In the case of services not specified as inpatient-only, they are appropriately provided as inpatient services in accordance with the 2-midnight benchmark. Estimated LOS (days): 3 3 days is the estimated time the patient will need to remain in the hospital, assuming treatment plan goals are met and no additional complications. Post-Hospital Plan: Home (Gus Penny MD R2) 2 Midnight Certification Type: Admission for Inpatient Services (Rhett Avila MD) Problem Qualifiers (1) Cirrhosis: Qualified Codes: K74.60 - Unspecified cirrhosis of liver (2) Small cell lung cancer: Qualified Codes: C34.90 - Malignant neoplasm of unspecified part of unspecified bronchus or lung Gus Penny MD R2 Dec 10, 2017 01:29 Rhett Avila MD Dec 10, 2017 12:06
[2017-12-10] MEDS ORDERED: ONDANSETRON HCL 4 MG/2 ML VIAL IV PUSH PRN (04:00)
[2017-12-10] MEDS ORDERED: KETOROLAC TROMETHAMINE 30 MG/ML (IVP) VIAL IV PUSH SCH (04:00)
[2017-12-10] MEDS ORDERED: diphenhydrAMINE HCL 25 MG CAP PO PRN (04:00)
[2017-12-10] MEDS ORDERED: NALOXONE HCL 0.4 MG/ML AMP IV PUSH PRN (04:15)
[2017-12-10] MEDS ORDERED: MORPHINE SULFATE 2 MG/ML INJ IV PUSH PRN (04:15)
[2017-12-10] MEDS: SODIUM CHLOR 0.9% 1000 ML INJ 1,000 ML IV SCH ×3 (05:00→20:17)
[2017-12-10] MEDS: KETOROLAC TROMETHAMINE 30 MG/ML (IVP) VIAL IV PUSH SCH ×2 (05:01→09:05)
[2017-12-10] MEDS: cefTRIAXone INJ 1,000 MG in SODIUM CHLORIDE 0.9% INJ 100 ML IV SCH ×2 (05:01→16:35)
[2017-12-10] MEDS: metroNIDAZOLE 500 MG INJ 100 ML IV SCH ×3 (05:18→20:18)
[2017-12-10] MEDS ORDERED: POTASSIUM PHOSPHATE INJ 30 MMOL in SODIUM CHLOR 0.9% 250 ML INJ 250 ML IV ONE (07:00)
[2017-12-10] MEDS: SODIUM CHLORIDE 0.9% FLUSH 10 ML FLUSH IV FLUSH SCH ×2 (09:00→21:00)
[2017-12-10 10:58] LABS: ALBUMIN 2.4 GM/DL (3.4-5.0); ALT (GPT) 27 U/L (10-53); AST (GOT) 55 U/L (15-37); BICARBONATE 23.8 MEQ/L (21.0-32.0); BLOOD UREA NITROGEN 10 MG/DL (7-18); CALCIUM 8.2 MG/DL (8.5-10.1); CHLORIDE 110 MEQ/L (98-107); CREATININE 0.39 MG/DL (0.50-1.00); GLOMERULAR FILTRATION RATE 170 ML/MIN (>89); GLUCOSE,RANDOM 84 MG/DL (74-106); MAGNESIUM 1.4 MG/DL (1.5-2.5); SODIUM (NA) 141 MEQ/L (136-145)
[2017-12-10 11:00] LABS: ALKALINE PHOSPHATASE 135 U/L (45-117); TOTAL PROTEIN 6.7 GM/DL (6.4-8.2)
[2017-12-10 11:19] LABS: AUTOMATED NEUTROPHIL # 2.4 TH/MM3 (1.8-7.7); EOSINOPHIL # 0.2 TH/MM3 (0-0.4); HEMATOCRIT 36.3 % (35.0-46.0); HEMOGLOBIN 12.5 GM/DL (11.6-15.3); LYMPH % 26.9 % (9.0-44.0); LYMPHOCYTE # 1.1 TH/MM3 (1.0-4.8); MEAN CELL VOLUME 102.1 FL (80.0-100.0); MEAN CORPUSCULAR HGB CONC 34.3 % (32.0-36.0); MEAN PLATELET VOLUME 8.2 FL (7.0-11.0); MONO % 9.2 % (0.0-8.0); MONOCYTE # 0.4 TH/MM3 (0-0.9); NEUT % 58.9 % (16.0-70.0); PLATELET COUNT 77 TH/MM3 (150-450); RED BLOOD COUNT 3.56 MIL/MM3 (4.00-5.30); RED CELL DISTRIBUTION WIDTH 15.3 % (11.6-17.2)
[2017-12-10] MEDS: MAGNESIUM SULFATE 1 GM PREMIX 100 ML IV SCH ×2 (16:31→18:18)
[2017-12-10] MEDS: MORPHINE SULFATE 2 MG/ML INJ IV PUSH PRN ×2 (18:17→21:08)
--- NOTE | 2017-12-10 19:43 | MB ---
cc: MILA MUIR M.D. DATE OF CONSULTATION 12/10/2017 REASON FOR CONSULTATION Cholelithiasis, cholecystitis, elevated liver enzymes. HISTORY OF THE PRESENT ILLNESS This is a pleasant 57-year-old female who was actually in the hospital emergency room here last month. She at that time had problems with rectal prolapse, were reduced. She was instructed to follow up her primary care physician and incidentally they had seen on her workup elevated liver enzymes and what was thought to be a kidney stone. She then returned to the emergency room just recently with severe right upper quadrant midepigastric tenderness and a CT scan was done showing a gallstone. She was admitted to the hospital for evaluation. Surgery was consulted. Incidentally, she also had a urinary tract infection that was recently found out and has some mild colitis on top of everything else. The patient's main complaint is her chronic low back pain, midepigastric pain, right upper quadrant pain and some mild left lower quadrant pain. REVIEW OF SYSTEMS CONSTITUTIONAL: On review of systems, she did have some slight fever and chills on constitutional. HEENT: No ear or ear problems. RESPIRATORY: Problems, she is chronically short of breath and coughing because of her emphysema. CARDIOVASCULAR: Has no cardiovascular problems. GASTROINTESTINAL: Complaints as above. At one time she had some bloody stools last month but this stopped. She did have some problems with constipation and some loose bowel movements and nausea but denied any vomiting. MUSCULOSKELETAL: Has chronic low back pain and some joint pain. NEUROLOGIC: No neurologic problems. PSYCHIATRIC: No problems. PAST MEDICAL HISTORY Significant for: 1. Her emphysema. 2. Hepatitis C. 3. And cirrhosis. PAST SURGICAL HISTORY The only surgery she has had is a . PHYSICAL EXAMINATION GENERAL: On physical exam she is a pleasant, thin lady sitting in her bed, looks comfortable. NECK: Supple. CHEST: Clear. HEART: Regular rate. ABDOMEN: Mild soreness to the right upper quadrant and epigastric region. She has no rebound or guarding. Some mild soreness in the left lower quadrant as well. EXTREMITIES: Moves all extremities well without clubbing, cyanosis or edema. NEUROLOGIC: She is alert and oriented without focal deficits. Appears to remember things. A little bit anxious about her medical condition. LABORATORY DATA She had a white count 4. H&H of 12 and 36. Chemistry shows a bilirubin of 3, in October it was 2.6. AST is 210 in October, today it is 55. Alkaline phos 135, it was 289. Her albumin is 2.8. Lipase was 123. Potassium was 3.4 and her magnesium was 1.4 which is both being replaced. IMAGING STUDIES A CT scanner of her abdomen shows an 11 mm calcified stone in the neck of the gallbladder. No stones in the kidneys. She has pelvic congestion syndrome with prominent varices in the cul-de-sac. Some questioning thickening of the cecum and right colon. ASSESSMENT A pleasant 57-year-old female who has anemia, hepatitis C in the past, elevated liver enzymes, known gallstone, history of rectal prolapse with inflammation of the cecum and also small bowel on the CT scan. PLAN The plan at this time, we will repeat her blood work in the morning. Replace her potassium. Replace her magnesium. Consider a GI evaluation because of her history of GI bleed. We will follow and possibly do an elective cholecystectomy this admission as long as she continues to improve. Also we need to treat her urinary tract infection as well. Mila Muir MD JSHAKIR/KK /7:05 PM /7:16 PM
[2017-12-11] VITALS (10 sets, daily range): BP systolic 95–128; BP diastolic 52–75; PULSE 71–90; RESP 19–20; TEMP 97.9–98.5; O2SAT 94–98
[2017-12-11] MEDS: MORPHINE SULFATE 2 MG/ML INJ IV PUSH PRN ×7 (00:27→23:23)
[2017-12-11] MEDS: SODIUM CHLOR 0.9% 1000 ML INJ 1,000 ML IV SCH ×2 (02:56→16:40)
[2017-12-11] MEDS: metroNIDAZOLE 500 MG INJ 100 ML IV SCH ×3 (03:02→20:00)
[2017-12-11] MEDS: cefTRIAXone INJ 1,000 MG in SODIUM CHLORIDE 0.9% INJ 100 ML IV SCH ×2 (03:03→16:35)
[2017-12-11 07:22] LABS: AUTOMATED NEUTROPHIL # 2.6 TH/MM3 (1.8-7.7); BASOPHIL % 0.7 % (0.0-2.0); EOSINOPHIL # 0.2 TH/MM3 (0-0.4); EOSINOPHIL % 3.9 % (0.0-4.0); HEMATOCRIT 35.5 % (35.0-46.0); HEMOGLOBIN 12.4 GM/DL (11.6-15.3); LYMPH % 31.3 % (9.0-44.0); LYMPHOCYTE # 1.5 TH/MM3 (1.0-4.8); MEAN PLATELET VOLUME 7.5 FL (7.0-11.0); MONOCYTE # 0.5 TH/MM3 (0-0.9); NEUT % 53.1 % (16.0-70.0); PLATELET COUNT 74 TH/MM3 (150-450); RED BLOOD COUNT 3.45 MIL/MM3 (4.00-5.30); RED CELL DISTRIBUTION WIDTH 15.4 % (11.6-17.2); WHITE BLOOD COUNT 4.9 TH/MM3 (4.0-11.0)
[2017-12-11 07:38] LABS: ALBUMIN 2.2 GM/DL (3.4-5.0); ALKALINE PHOSPHATASE 150 U/L (45-117); ALT (GPT) 25 U/L (10-53); AST (GOT) 51 U/L (15-37); BICARBONATE 26.2 MEQ/L (21.0-32.0); CALCIUM 8.2 MG/DL (8.5-10.1); CHLORIDE 108 MEQ/L (98-107); CREATININE 0.39 MG/DL (0.50-1.00); GLOMERULAR FILTRATION RATE 170 ML/MIN (>89); GLUCOSE,RANDOM 91 MG/DL (74-106); MAGNESIUM 1.8 MG/DL (1.5-2.5); SODIUM (NA) 139 MEQ/L (136-145); TOTAL BILIRUBIN ADULT 1.7 MG/DL (0.2-1.0); TOTAL PROTEIN 6.6 GM/DL (6.4-8.2)
[2017-12-11 07:39] LABS: BLOOD UREA NITROGEN 10 MG/DL (7-18)
[2017-12-11] MEDS ORDERED: KETOROLAC TROMETHAMINE 30 MG/ML (IVP) VIAL IV PUSH SCH (08:45)
--- NOTE | 2017-12-11 08:54 | HHI.FPPN ---
Subjective Remarks No acute events overnight. Pt sitting up in bed this AM. She states that she still has right -sided abdominal pain, 7/10, unchanged from prior. She states that she is having rectal prolapse and small amount of bleeding coming from her rectum. I informed her that GI physician will be in to take a look at it. She states that she tolerated dinner well last night, but has some diarrhea. Otherwise, she denies CP, SOB, N/V. (Darlene Ball MD R1) Remarks Patient examined separately from resident physicians. Patient continues to complain of abdominal pain as well as some bleeding from her rectum overnight. She denies any fevers or chills. She denies any nausea or vomiting. She denies any chest pain or palpitations. She was able to tolerate a meal last night without issue. (Rhett Avila MD) Objective Vitals Vital Signs Date Time Temp Pulse Resp B/P (MAP) Pulse Ox O2 Delivery O2 Flow Rate FiO2 12/11/17 04:00 Room Air 12/11/17 04:00 98.0 72 19 103/56 (72) 95 12/11/17 03:51 76 12/11/17 00:00 98.5 71 20 95/52 (66) 98 12/11/17 00:00 Room Air 12/10/17 23:45 68 12/10/17 20:00 98.0 83 17 115/59 (77) 94 12/10/17 20:00 Room Air 12/10/17 19:43 80 12/10/17 16:00 97.8 78 18 130/61 (84) 93 12/10/17 16:00 75 12/10/17 12:00 77 12/10/17 12:00 98.1 77 18 122/61 (81) 93 I/O 12/10/17 12/10/17 12/10/17 12/11/17 12/11/17 12/11/17 07:00 15:00 23:00 07:00 15:00 23:00 Intake Total 200 ml 350 ml 890 ml 480 ml Balance 200 ml 350 ml 890 ml 480 ml Intake Oral 240 ml 480 ml IV Total 200 ml 350 ml 650 ml # Voids 4 3 (Darlene Ball MD R1) Result Diagram: 12/11/17 0600 12/11/17 0600 Objective Remarks GENERAL: Well-nourished, well-developed female lying in bed in no acute distress. SKIN: Warm and dry. No rash. Hyperpigmented with multiple tattoos. HEENT: Atraumatic, normocephalic with extraocular motions intact. No rhinorrhea. No visible lymphadenopathy or jugulovenous distension appreciated. CARDIOVASCULAR: Regular rate and rhythm without obvious murmurs, gallops, or rubs. 2+ pulses in all four extremities. RESPIRATORY: Clear to auscultation bilaterally with no crackles, wheezes, or rhonchi. No increased work of breathing. GASTROINTESTINAL: Abdomen soft, nondistended with positive bowel sounds. Patient tender to palpation in all 4 quadrants, focally in the right upper quadrant. Positive Ramirez sign. Negative rebound tenderness. Negative fluid wave. No masses appreciated. MUSCULOSKELETAL: No cyanosis or edema. No calf tenderness. Ambulating well per her report. NEURO/PSYCH: Afocal. Awake, alert, and oriented x3. Normal speech and judgement. : external hemorrhoids (Darlene Ball MD R1) A/P Assessment and Plan Mrs. Melgar is a 57-year-old female presenting with abdominal pain found to have acute calculous cholecystitis. (Darlene Ball MD R1) Attending Attestation Patient examined and case discussed with resident physicians I have read the above note and agree with the assessment/plan as discussed with me I was involved in all medical decision making for this patient GI has evaluated patient and plans to do colonoscopy tomorrow General surgery has evaluated patient -Continue IV antibiotics -There is an order in the computer for consent for laparoscopic cholecystectomy with option for open cholecystectomy for tomorrow Rhett Avila MD (Rhett Avila MD) Problem List: (1) Acute calculous cholecystitis ICD Codes: K80.00 - Calculus of gallbladder with acute cholecystitis without obstruction Status: Acute Plan: CT of the abdomen and pelvis shows an 11 mm calcified stone in the region of the neck suggesting possible impacted stone with a distended gallbladder and pericholecystic fluid suggestive IV antibiotics: Rocephin 1 g IV every 12 hours Flagyl 500 mg IV every 8 hours -Received Zosyn 1 dose in the emergency department Morphine PRN for pain Blood cultures pending Normal saline at 108 mL per hour Gen. surgery consulted, recommendations appreciated -GI consulted for evaluation -possible elective cholecystectomy (2) Pelvic congestion syndrome ICD Codes: N94.89 - Other specified conditions associated with female genital organs and menstrual cycle Status: Acute Plan: Abdominal CT:Findings suggest pelvic congestion syndrome with multiple prominent varices in the cul-de-sac and free fluid in the right dependent pelvis. -Patient denies pain or vulvar varices -Continue to monitor (3) Colitis ICD Codes: K52.9 - Noninfective gastroenteritis and colitis, unspecified Status: Acute Plan: Abdominal CT:Questionable wall thickening in the right colon and cecum. Dilation of the duodenal C-loop is of uncertain significance. There is no dilation of the remainder of the small bowel. -Antibiotics and fluids as above (4) UTI (urinary tract infection) ICD Codes: N39.0 - Urinary tract infection, site not specified Status: Acute Plan: Urine culture positive for gram negative rods, sensitivities pending Continue antibiotics as above (5) Cirrhosis ICD Codes: K74.60 - Unspecified cirrhosis of liver Status: Chronic Plan: Chronic hepatitis C infection leading to cirrhosis that is being worked up by the [facility] -She is treatment [facility] for her hepatitis but is going to the process with the [facility] for treatment -UA: Urobilinogen greater than 12 (6) Small cell lung cancer ICD Codes: C34.90 - Malignant neoplasm of unspecified part of unspecified bronchus or lung Status: Chronic Plan: Patient with reported history of small cell lung cancer -Patient refused treatment at diagnosis in 2017 and does not wish to pursue treatment options at this time -Chest x-ray with no acute disease (7) Rectal prolapse ICD Codes: K62.3 - Rectal prolapse Status: Chronic Plan: Patient endorses rectal bleeding with prolapse H/H stable GI consulted (8) Hypokalemia ICD Codes: E87.6 - Hypokalemia Status: Resolved Plan: -Potassium 2.9 on admission, normalized to 4.2 today -Patient received 10 mEq of potassium IV in the ED -Potassium phosphate 30 mEq ordered IV -Continue to monitor with magnesium (9) Nutrition, metabolism, and development symptoms ICD Codes: R63.8 - Other symptoms and signs concerning food and fluid intake Status: Acute Plan: -Fluids: Normal saline at 108 mL per hour -Diet: regular diet -Electrolytes: continue to monitor (10) Surgical contraindication to deep vein thrombosis (DVT) prophylaxis ICD Codes: Z53.09 - Procedure and treatment not carried out because of other contraindication Status: Acute Plan: -Hold medical prophylaxis due to possible surgical intervention -SCDs (Darlene Ball MD R1) Problem Qualifiers (1) Cirrhosis: Qualified Codes: K74.60 - Unspecified cirrhosis of liver (2) Small cell lung cancer: Qualified Codes: C34.90 - Malignant neoplasm of unspecified part of unspecified bronchus or lung Darlene Ball MD R1 Dec 11, 2017 08:54 Rhett Avila MD Dec 11, 2017 16:44
[2017-12-11] MEDS: SODIUM CHLORIDE 0.9% FLUSH 10 ML FLUSH IV FLUSH SCH ×2 (09:00→21:00)
[2017-12-11] MEDS ORDERED: RESP: ALBUTEROL 2.5 MG/IPRATROPIUM 0.5 MG NEB (PRN) NEB (10:00)
[2017-12-11] MEDS: NICOTINE 14 MG/24 HR PATCH T-DERMAL SCH (11:08)
--- NOTE | 2017-12-11 12:07 | PD.CONS ---
HPI History of Present Illness This is a 57 year old female with hx hep c, rectal prolapse, small cell lung ca who presented with complaint of BRBPR and abd pain. Onset pain 5 days ago and is worse after eating. Admits nausea, bloating as well. Pain in epigastric area. She has also been having copious red blood intermingled in her stool along with mucusy stools and clots. CT showed abnormal gallbladder, questionable wall thickening right colon, cecum, dilatation duodenal c loop. She has never had tx for her hep c. She says she is not being treated for lung cancer but that the [facility] is managing it. She admits hx rectal prolapse but until now has not had bleeding from it. Last colonoscopy was 2015 at the [facility] and polyps were found. Never had EGD. (Carmenza Vásquez) PFSH Past Medical History small cell lung ca hep c tx neaive rectal prolapse COPD Past Surgical History c section (Carmenza Vásquez) Coded Allergies: No Known Allergies (Verified Allergy, Unknown, 11/17/17) Family History brain ca - mother cholangiocarcinoma - sister CHF father DM Social History denies etoh currently but has prior hx heavy drinking smokes 1ppd denies illicit drug use (Carmenza Vásquez) Review of Systems Constitutional: DENIES: Fever Endocrine: DENIES: Polydipsia Eyes: DENIES: Blurred vision Ears, nose, mouth, throat: DENIES: Hearing loss Respiratory: COMPLAINS OF: Cough Cardiovascular: DENIES: Chest pain Gastrointestinal: COMPLAINS OF: Abdominal pain, Bloody stools, Nausea, DENIES: Black stools, Vomiting Genitourinary: DENIES: Hematuria Musculoskeletal: DENIES: Joint Swelling Integumentary: DENIES: Pruritus Hematologic/lymphatic: DENIES: Bruising Immunologic/allergic: DENIES: Eczema Neurologic: DENIES: Abnormal gait Psychiatric: DENIES: Confusion (Carmenza Vásquez) GI Exam Vitals I&O Vital Signs Date Time Temp Pulse Resp B/P (MAP) Pulse Ox O2 Delivery O2 Flow Rate FiO2 12/11/17 08:00 98.0 89 20 105/59 (74) 94 12/11/17 08:00 83 12/11/17 07:00 Room Air 12/11/17 04:00 Room Air 12/11/17 04:00 98.0 72 19 103/56 (72) 95 12/11/17 03:51 76 12/11/17 00:00 98.5 71 20 95/52 (66) 98 12/11/17 00:00 Room Air 12/10/17 23:45 68 12/10/17 20:00 98.0 83 17 115/59 (77) 94 12/10/17 20:00 Room Air 12/10/17 19:43 80 12/10/17 16:00 97.8 78 18 130/61 (84) 93 12/10/17 16:00 75 12/10/17 12:00 77 12/10/17 12:00 98.1 77 18 122/61 (81) 93 I/O 12/10/17 12/10/17 12/10/17 12/11/17 12/11/17 12/11/17 07:00 15:00 23:00 07:00 15:00 23:00 Intake Total 200 ml 350 ml 890 ml 480 ml Balance 200 ml 350 ml 890 ml 480 ml Intake Oral 240 ml 480 ml IV Total 200 ml 350 ml 650 ml # Voids 4 3 Imaging Last Impressions Chest X-Ray 12/09/17 0000 Signed Impressions: Service Date/Time: Saturday, December 09, 2017 21:02 - CONCLUSION: The lungs are clear. Steve Alamo MD Abdomen/Pelvis CT 12/09/17 0000 Signed Impressions: Service Date/Time: Saturday, December 09, 2017 22:10 - CONCLUSION: 1. Abnormal appearance of the gallbladder with distention, thickened wall, possible pericholecystic fluid, and a 11 mm calcified stone near the neck. 2. Findings suggest pelvic congestion syndrome with multiple prominent varices in the cul-de-sac and free fluid in the right dependent pelvis. 3. Questionable wall thickening in the right colon and cecum. 4. Dilation of the duodenal C-loop is of uncertain significance. There is no dilation of the remainder of the small bowel. 5. Focal parenchymal opacity in the right costophrenic angle characterized by increased ground substance. Steve Alamo MD Laboratory Test 12/11/17 06:00 White Blood Count 4.9 TH/MM3 Red Blood Count 3.45 MIL/MM3 Hemoglobin 12.4 GM/DL Hematocrit 35.5 % Mean Corpuscular Volume 103.0 FL Mean Corpuscular Hemoglobin 36.0 PG Mean Corpuscular Hemoglobin Concent 35.0 % Red Cell Distribution Width 15.4 % Platelet Count 74 TH/MM3 Mean Platelet Volume 7.5 FL Neutrophils (%) (Auto) 53.1 % Lymphocytes (%) (Auto) 31.3 % Monocytes (%) (Auto) 11.0 % Eosinophils (%) (Auto) 3.9 % Basophils (%) (Auto) 0.7 % Neutrophils # (Auto) 2.6 TH/MM3 Lymphocytes # (Auto) 1.5 TH/MM3 Monocytes # (Auto) 0.5 TH/MM3 Eosinophils # (Auto) 0.2 TH/MM3 Basophils # (Auto) 0.0 TH/MM3 CBC Comment AUTO DIFF Differential Comment AUTO DIFF CONFIRMED Platelet Estimate LOW Platelet Morphology Comment NORMAL Hematology Comments Blood Urea Nitrogen 10 MG/DL Creatinine 0.39 MG/DL Random Glucose 91 MG/DL Total Protein 6.6 GM/DL Albumin 2.2 GM/DL Calcium Level 8.2 MG/DL Magnesium Level 1.8 MG/DL Alkaline Phosphatase 150 U/L Aspartate Amino Transf (AST/SGOT) 51 U/L Alanine Aminotransferase (ALT/SGPT) 25 U/L Total Bilirubin 1.7 MG/DL Sodium Level 139 MEQ/L Potassium Level 4.2 MEQ/L Chloride Level 108 MEQ/L Carbon Dioxide Level 26.2 MEQ/L Anion Gap 5 MEQ/L Estimat Glomerular Filtration Rate 170 ML/MIN Date/Time Source Procedure Growth Status 12/09/17 23:15 Blood Peripheral Aerobic Blood Culture - Preliminary NO GROWTH IN 1 DAY Resulted 12/09/17 23:15 Blood Peripheral Anaerobic Blood Culture - Preliminary NO GROWTH IN 1 DAY Resulted 12/09/17 21:35 Urine Clean Catch Urine Culture - Preliminary Gram Negative Adarsh Resulted Physical Examination HEENT: PERRL; normocephalic; atraumatic; no jaundice. CHEST: CTA, diminished CARDIAC: RRR ABDOMEN: Soft, distended, diffusely TTP > epigastric area; no hepatosplenomegaly; bowel sounds are present in all four quadrants. EXTREMITIES: No clubbing, cyanosis, or edema. SKIN: Normal; no rash; no jaundice. ORGANIC SEARCH LEAD: No focal deficits; alert and oriented times three. (Carmenza Vásquez) Assessment and Plan Plan ASSESSMENT - abd pain, nausea, elevated LFTs - cholecystitis seen on CT. GS following, possible plans for lap jody. CT also showed questionable wall thickening right colon and cecum and dilatation duodenal c loop - hematochezia - unclear source, Hh WNL. hx rectal prolapse. last colonoscopy [address] as above. PLAN - colonoscopy in am +/- EGD - obtain consent - clear liquids today - NPO after MN - mg citrate prep - monitor labs - further recs to follow dependign on results above pt seen by myself and DR Moy and this note is written on his behalf (Carmenza Vásquez) Physician Comments Patient seen and examined Agree with above Continue with current supportive care Monitor labs EGD colon tomorrow (Vipin Moy MD) Carmenza Vásquez Dec 11, 2017 12:07 Vipin Moy MD Dec 11, 2017 18:52
[2017-12-11 14:59] LABS: FOLATE 3.5 NG/ML (3.1-17.5)
--- NOTE | 2017-12-11 15:49 | HHI.PR ---
cc: Uvaldo Huang MD Subjective Subjective Notes DAILY PROGRESS NOTE FOR SURGICAL ATTENDING, DR. UVALDO HUANG Ambulating in room No issues Objective Vitals/I&O Vital Signs Date Time Temp Pulse Resp B/P (MAP) Pulse Ox O2 Delivery O2 Flow Rate FiO2 12/11/17 12:36 83 12/11/17 12:00 97.9 20 108/53 (71) 94 12/11/17 07:00 Room Air Labs Laboratory Tests Test 12/11/17 06:00 White Blood Count 4.9 Red Blood Count 3.45 Hemoglobin 12.4 Hematocrit 35.5 Mean Corpuscular Volume 103.0 Mean Corpuscular Hemoglobin 36.0 Mean Corpuscular Hemoglobin Concent 35.0 Red Cell Distribution Width 15.4 Platelet Count 74 Mean Platelet Volume 7.5 Neutrophils (%) (Auto) 53.1 Lymphocytes (%) (Auto) 31.3 Monocytes (%) (Auto) 11.0 Eosinophils (%) (Auto) 3.9 Basophils (%) (Auto) 0.7 Neutrophils # (Auto) 2.6 Lymphocytes # (Auto) 1.5 Monocytes # (Auto) 0.5 Eosinophils # (Auto) 0.2 Basophils # (Auto) 0.0 CBC Comment AUTO DIFF Differential Comment AUTO DIFF CONFIRMED Platelet Estimate LOW Platelet Morphology Comment NORMAL Hematology Comments Blood Urea Nitrogen 10 Creatinine 0.39 Random Glucose 91 Total Protein 6.6 Albumin 2.2 Calcium Level 8.2 Magnesium Level 1.8 Alkaline Phosphatase 150 Aspartate Amino Transf (AST/SGOT) 51 Alanine Aminotransferase (ALT/SGPT) 25 Total Bilirubin 1.7 Sodium Level 139 Potassium Level 4.2 Chloride Level 108 Carbon Dioxide Level 26.2 Anion Gap 5 Estimat Glomerular Filtration Rate 170 Vitamin B12 Level 1824 Folate 3.5 Date/Time Source Procedure Growth Status 12/09/17 23:15 Blood Peripheral Aerobic Blood Culture - Preliminary NO GROWTH IN 1 DAY Resulted 12/09/17 23:15 Blood Peripheral Anaerobic Blood Culture - Preliminary NO GROWTH IN 1 DAY Resulted 12/09/17 21:35 Urine Clean Catch Urine Culture - Final Escherichia Coli Complete Radiology Last Impressions Chest X-Ray 12/09/17 0000 Signed Impressions: Service Date/Time: Saturday, December 09, 2017 21:02 - CONCLUSION: The lungs are clear. Steve Alamo MD Abdomen/Pelvis CT 12/09/17 0000 Signed Impressions: Service Date/Time: Saturday, December 09, 2017 22:10 - CONCLUSION: 1. Abnormal appearance of the gallbladder with distention, thickened wall, possible pericholecystic fluid, and a 11 mm calcified stone near the neck. 2. Findings suggest pelvic congestion syndrome with multiple prominent varices in the cul-de-sac and free fluid in the right dependent pelvis. 3. Questionable wall thickening in the right colon and cecum. 4. Dilation of the duodenal C-loop is of uncertain significance. There is no dilation of the remainder of the small bowel. 5. Focal parenchymal opacity in the right costophrenic angle characterized by increased ground substance. Steve Alamo MD Cardiovascular: Regular Lungs: Clear Abdomen: Non-distended, Other (mild RUQ pain ) Extremities: No edema A/P Problem List: (1) Acute calculous cholecystitis ICD Codes: K80.00 - Calculus of gallbladder with acute cholecystitis without obstruction Status: Acute (2) Abdominal pain ICD Codes: R10.9 - Unspecified abdominal pain Status: Acute (3) UTI (urinary tract infection) ICD Codes: N39.0 - Urinary tract infection, site not specified Status: Acute (4) Pelvic congestion syndrome ICD Codes: N94.89 - Other specified conditions associated with female genital organs and menstrual cycle Status: Acute (5) Rectal prolapse ICD Codes: K62.3 - Rectal prolapse Status: Chronic (6) Colitis ICD Codes: K52.9 - Noninfective gastroenteritis and colitis, unspecified Status: Acute (7) Hypokalemia ICD Codes: E87.6 - Hypokalemia Status: Resolved (8) Gallstones ICD Codes: K80.20 - Calculus of gallbladder without cholecystitis without obstruction (9) Abnormal findings on diagnostic imaging of liver and biliary tract ICD Codes: R93.2 - Abnormal findings on diagnostic imaging of liver and biliary tract Assessment and Plan 57 year old female with gallstones; RUQ pain; cholecystis -Repeat lab work in AM -GI planning colonoscopy tomorrow -Plan for lap jody Monday -Clear liquids tonight; NPO after MN -Obtain consents -All questions about the procedure answered Attending Statement NOTE FOR SURGICAL ATTENDING, DR. UVALDO HUANG Patient seen Getting prepped for a colonoscopy to tomorrow to evaluate GI bleed and thickening of colon and cecum on imaging Plan laparoscopic cholecystectomy on Monday unless something is found on the colonoscopy tomorrow I agree with above assessment and plan. The exam, history, and the medical decision-making described in the above note were completed with the assistance of the mid-level provider. I reviewed and agree with the findings presented. I attest that I had a [id number] encounter with the patient on the same day, and personally performed and documented my assessment and findings in the medical record. The following services were provided during this hospital visit: Chart data review, vital sign assessments/reviewing monitor data Review of consultations notes if present. Medication orders/review and/or management Ordering and/or reviewing lab tests Ordering and/or interpreting/reviewing x-rays and/or diagnostic studies Care of the patient and discussion of the patient with the care team Documentation time To help prompt me to consider important information that might be impacting today's encounter and assessment, information from prior notes written by myself or my colleagues may have been "brought forward/copy and pasted" into today's note. Deepthi Quintero Dec 11, 2017 15:49 Uvaldo Huang MD Dec 11, 2017 18:34
[2017-12-11] MEDS ORDERED: MAGNESIUM CITRATE SOLN 300 ML BTL PO ONE ×2 (16:00→18:00)
[2017-12-11] MEDS: REMOVE OLD PATCH T-DERMAL SCH (21:00)
[2017-12-12] VITALS (10 sets, daily range): BP systolic 97–127; BP diastolic 51–66; PULSE 74–101; RESP 18–21; TEMP 97.7–98.3; O2SAT 94–96
[2017-12-12] MEDS: MORPHINE SULFATE 2 MG/ML INJ IV PUSH PRN ×6 (02:18→20:56)
[2017-12-12] MEDS: cefTRIAXone INJ 1,000 MG in SODIUM CHLORIDE 0.9% INJ 100 ML IV SCH ×2 (04:06→17:18)
[2017-12-12] MEDS: metroNIDAZOLE 500 MG INJ 100 ML IV SCH ×3 (04:06→22:25)
[2017-12-12] MEDS: SODIUM CHLOR 0.9% 1000 ML INJ 1,000 ML IV SCH ×2 (04:07→18:37)
[2017-12-12] MEDS ORDERED: POVIDONE IODINE 5% (ANTISEPSIS KIT) 4 APPLICATIONS EACH NARE PRN (06:00)
[2017-12-12] MEDS ORDERED: CHLORHEXIDINE GLUCONATE 2 % 1 PACK (2 CLOTHS) TOPICAL PRN (06:00)
[2017-12-12] MEDS ORDERED: LACTATED RINGER'S 1000 ML IV PRN (06:00)
[2017-12-12 06:10] LABS: HEMATOCRIT 35.2 % (35.0-46.0); MEAN CELL VOLUME 103.3 FL (80.0-100.0); MEAN CORPUSCULAR HEMOGLOBIN 35.1 PG (27.0-34.0); MEAN PLATELET VOLUME 7.7 FL (7.0-11.0); PLATELET COUNT 77 TH/MM3 (150-450); RED BLOOD COUNT 3.41 MIL/MM3 (4.00-5.30); RED CELL DISTRIBUTION WIDTH 14.7 % (11.6-17.2); WHITE BLOOD COUNT 4.8 TH/MM3 (4.0-11.0)
[2017-12-12 06:13] LABS: ALBUMIN 2.4 GM/DL (3.4-5.0); AST (GOT) 61 U/L (15-37); BICARBONATE 30.6 MEQ/L (21.0-32.0); BLOOD UREA NITROGEN 9 MG/DL (7-18); CALCIUM 8.5 MG/DL (8.5-10.1); CHLORIDE 108 MEQ/L (98-107); CREATININE 0.37 MG/DL (0.50-1.00); GLOMERULAR FILTRATION RATE 181 ML/MIN (>89); GLUCOSE,RANDOM 70 MG/DL (74-106); SODIUM (NA) 141 MEQ/L (136-145)
[2017-12-12 06:17] LABS: ALKALINE PHOSPHATASE 135 U/L (45-117); ALT (GPT) 26 U/L (10-53); TOTAL BILIRUBIN ADULT 2.5 MG/DL (0.2-1.0); TOTAL PROTEIN 6.7 GM/DL (6.4-8.2)
[2017-12-12] MEDS: NICOTINE 14 MG/24 HR PATCH T-DERMAL SCH (08:33)
[2017-12-12] MEDS: SODIUM CHLORIDE 0.9% FLUSH 10 ML FLUSH IV FLUSH SCH ×2 (08:34→20:56)
--- NOTE | 2017-12-12 10:19 | HHI.PR ---
cc: Uvaldo Huang MD Subjective Subjective Notes DAILY PROGRESS NOTE FOR SURGICAL ATTENDING, DR. UVALDO HUANG Resting in bed Reports some bloody stools overnight Await EGD/Colonoscopy today Objective Vitals/I&O Vital Signs Date Time Temp Pulse Resp B/P (MAP) Pulse Ox O2 Delivery O2 Flow Rate FiO2 12/12/17 10:05 74 12/12/17 08:00 98.2 20 103/51 (68) 95 12/12/17 04:00 Room Air Labs Laboratory Tests Test 12/12/17 04:33 White Blood Count 4.8 Red Blood Count 3.41 Hemoglobin 12.0 Hematocrit 35.2 Mean Corpuscular Volume 103.3 Mean Corpuscular Hemoglobin 35.1 Mean Corpuscular Hemoglobin Concent 34.0 Red Cell Distribution Width 14.7 Platelet Count 77 Mean Platelet Volume 7.7 Hematology Comments Blood Urea Nitrogen 9 Creatinine 0.37 Random Glucose 70 Total Protein 6.7 Albumin 2.4 Calcium Level 8.5 Alkaline Phosphatase 135 Aspartate Amino Transf (AST/SGOT) 61 Alanine Aminotransferase (ALT/SGPT) 26 Total Bilirubin 2.5 Sodium Level 141 Potassium Level 4.8 Chloride Level 108 Carbon Dioxide Level 30.6 Anion Gap 2 Estimat Glomerular Filtration Rate 181 Date/Time Source Procedure Growth Status 12/09/17 23:15 Blood Peripheral Aerobic Blood Culture - Preliminary NO GROWTH IN 1 DAY Resulted 12/09/17 23:15 Blood Peripheral Anaerobic Blood Culture - Preliminary NO GROWTH IN 1 DAY Resulted 12/09/17 21:35 Urine Clean Catch Urine Culture - Final Escherichia Coli Complete Radiology Last Impressions Chest X-Ray 12/09/17 0000 Signed Impressions: Service Date/Time: Saturday, December 09, 2017 21:02 - CONCLUSION: The lungs are clear. Steve Alamo MD Abdomen/Pelvis CT 12/09/17 0000 Signed Impressions: Service Date/Time: Saturday, December 09, 2017 22:10 - CONCLUSION: 1. Abnormal appearance of the gallbladder with distention, thickened wall, possible pericholecystic fluid, and a 11 mm calcified stone near the neck. 2. Findings suggest pelvic congestion syndrome with multiple prominent varices in the cul-de-sac and free fluid in the right dependent pelvis. 3. Questionable wall thickening in the right colon and cecum. 4. Dilation of the duodenal C-loop is of uncertain significance. There is no dilation of the remainder of the small bowel. 5. Focal parenchymal opacity in the right costophrenic angle characterized by increased ground substance. Steve Alamo MD Cardiovascular: Regular Lungs: Clear Abdomen: Other (RUQ tenderness; non distended ) Extremities: No edema A/P Problem List: (1) Acute calculous cholecystitis ICD Codes: K80.00 - Calculus of gallbladder with acute cholecystitis without obstruction Status: Acute (2) Abdominal pain ICD Codes: R10.9 - Unspecified abdominal pain Status: Acute (3) UTI (urinary tract infection) ICD Codes: N39.0 - Urinary tract infection, site not specified Status: Acute (4) Pelvic congestion syndrome ICD Codes: N94.89 - Other specified conditions associated with female genital organs and menstrual cycle Status: Acute (5) Rectal prolapse ICD Codes: K62.3 - Rectal prolapse Status: Chronic (6) Colitis ICD Codes: K52.9 - Noninfective gastroenteritis and colitis, unspecified Status: Acute (7) Hypokalemia ICD Codes: E87.6 - Hypokalemia Status: Resolved (8) Gallstones ICD Codes: K80.20 - Calculus of gallbladder without cholecystitis without obstruction (9) Abnormal findings on diagnostic imaging of liver and biliary tract ICD Codes: R93.2 - Abnormal findings on diagnostic imaging of liver and biliary tract Assessment and Plan 57 year old female with gallstones; RUQ pain; cholecystis -EGD/Colonoscopy today -Will tentatively plan for laparoscopic cholecystectomy pending results of colonoscopy -NPO for procedure today -Obtain consents for lap jody -Hold anticoagulation due to concern for GI bleeding procedures -NPO after MN Attending Statement NOTE FOR SURGICAL ATTENDING, DR. UVALDO HUANG Patient still having rectal bleeding For colonoscopy EGD today Plan laparoscopic cholecystectomy tomorrow depending on colonoscopy EGD results Colonoscopy showed gastritis duodenitis gastric ulcer duodenal ulcer Mild inflammation of cecum nonspecific rectal prolapse We'll plan laparoscopic cholecystectomy tomorrow with liver biopsy at the request of the steward/stewardess club car I agree with above assessment and plan. The exam, history, and the medical decision-making described in the above note were completed with the assistance of the mid-level provider. I reviewed and agree with the findings presented. I attest that I had a [id number] encounter with the patient on the same day, and personally performed and documented my assessment and findings in the medical record. The following services were provided during this hospital visit: Chart data review, vital sign assessments/reviewing monitor data Review of consultations notes if present. Medication orders/review and/or management Ordering and/or reviewing lab tests Ordering and/or interpreting/reviewing x-rays and/or diagnostic studies Care of the patient and discussion of the patient with the care team Documentation time To help prompt me to consider important information that might be impacting today's encounter and assessment, information from prior notes written by myself or my colleagues may have been "brought forward/copy and pasted" into today's note. Deepthi Quintero Dec 12, 2017 10:19 Uvaldo Huang MD Dec 12, 2017 11:11
--- NOTE | 2017-12-12 11:20 | HHI.FPPN ---
Subjective Remarks No acute events overnight. Patient sitting up in bed. at bedside. States that she is hungry from being NPO for colonoscopy this morning. Still having some rectal bleeding, otherwise no other complaints this AM. Denies CP, SOB, abdominal pain, and N/V. (Darlene Ball MD R1) Objective Vitals Vital Signs Date Time Temp Pulse Resp B/P (MAP) Pulse Ox O2 Delivery O2 Flow Rate FiO2 12/12/17 10:05 74 12/12/17 08:00 98.2 89 20 103/51 (68) 95 12/12/17 04:05 79 12/12/17 04:00 Room Air 12/12/17 04:00 97.7 92 21 107/66 (80) 96 12/12/17 00:03 91 12/12/17 00:00 97.9 75 18 104/53 (70) 94 12/12/17 00:00 Room Air 12/11/17 20:00 Room Air 12/11/17 20:00 98.0 90 19 128/75 (92) 96 12/11/17 19:46 86 12/11/17 16:53 83 12/11/17 16:00 98.5 73 20 97/55 (69) 94 12/11/17 12:36 83 12/11/17 12:00 97.9 78 20 108/53 (71) 94 I/O 12/11/17 12/11/17 12/11/17 12/12/17 12/12/17 12/12/17 07:00 15:00 23:00 07:00 15:00 23:00 Intake Total 480 ml 100 ml 2892 ml 0 ml Output Total 800 ml Balance 480 ml 100 ml 2892 ml -800 ml Intake Oral 480 ml 0 ml IV Total 100 ml 2892 ml Output Urine Total 800 ml # Voids 3 4 # Bowel Movements 2 7 (Darlene Ball MD R1) Result Diagram: 12/12/1743212/12/17432 Objective Remarks GENERAL: Well-nourished, well-developed female lying in bed in no acute distress. SKIN: Warm and dry. No rash. Hyperpigmented with multiple tattoos. HEENT: Atraumatic, normocephalic with extraocular motions intact. No rhinorrhea. No visible lymphadenopathy or jugulovenous distension appreciated. CARDIOVASCULAR: Regular rate and rhythm without obvious murmurs, gallops, or rubs. 2+ pulses in all four extremities. RESPIRATORY: Clear to auscultation bilaterally with no crackles, wheezes, or rhonchi. No increased work of breathing. GASTROINTESTINAL: Abdomen soft, nondistended with positive bowel sounds. Patient tender to palpation in all 4 quadrants, focally in the right upper quadrant. Positive Ramirez sign. Negative rebound tenderness. Negative fluid wave. No masses appreciated. MUSCULOSKELETAL: No cyanosis or edema. No calf tenderness. Ambulating well per her report. NEURO/PSYCH: Afocal. Awake, alert, and oriented x3. Normal speech and judgement. : external hemorrhoids (Darlene Ball MD R1) A/P Assessment and Plan Mrs. Melgar is a 57-year-old female presenting with abdominal pain found to have acute calculous cholecystitis. Discharge Planning colonoscopy and lab lap cholecy on mon. (Darlene Ball MD R1) Attending Attestation Pt. examined and case reviewed with resident physician I have read the above note and agree with the assessment/plan as discussed with me I was involved in all medical decision making for this patient Rhett Avila MD (Rhett Avila MD) Problem List: (1) Acute calculous cholecystitis ICD Codes: K80.00 - Calculus of gallbladder with acute cholecystitis without obstruction Status: Acute Plan: CT of the abdomen and pelvis shows an 11 mm calcified stone in the region of the neck suggesting possible impacted stone with a distended gallbladder and pericholecystic fluid suggestive IV antibiotics: Rocephin 1 g IV every 12 hours Flagyl 500 mg IV every 8 hours -Received Zosyn 1 dose in the emergency department Morphine PRN for pain Blood cultures NGTD Normal saline at 108 mL per hour GI consulted, recommendations appreciated -EGD and colonoscopy today General surgery consulted, recommendations appreciated -plan for laparoscopic cholecystectomy tomorrow (2) Pelvic congestion syndrome ICD Codes: N94.89 - Other specified conditions associated with female genital organs and menstrual cycle Status: Acute Plan: Abdominal CT:Findings suggest pelvic congestion syndrome with multiple prominent varices in the cul-de-sac and free fluid in the right dependent pelvis. -Patient denies pain or vulvar varices -Continue to monitor (3) Colitis ICD Codes: K52.9 - Noninfective gastroenteritis and colitis, unspecified Status: Acute Plan: Abdominal CT:Questionable wall thickening in the right colon and cecum. Dilation of the duodenal C-loop is of uncertain significance. There is no dilation of the remainder of the small bowel. -Antibiotics and fluids as above (4) UTI (urinary tract infection) ICD Codes: N39.0 - Urinary tract infection, site not specified Status: Acute Plan: Urine culture positive for gram negative rods,bond-sensitive Continue antibiotics as above (5) Cirrhosis ICD Codes: K74.60 - Unspecified cirrhosis of liver Status: Chronic Plan: Chronic hepatitis C infection leading to cirrhosis that is being worked up by the [facility] -She is treatment taylor for her hepatitis but is going to the process with the [facility] for treatment -UA: Urobilinogen greater than 12 (6) Small cell lung cancer ICD Codes: C34.90 - Malignant neoplasm of unspecified part of unspecified bronchus or lung Status: Chronic Plan: Patient with reported history of small cell lung cancer -Patient refused treatment at diagnosis in 2017 and does not wish to pursue treatment options at this time -Chest x-ray with no acute disease (7) Rectal prolapse ICD Codes: K62.3 - Rectal prolapse Status: Chronic Plan: Patient endorses rectal bleeding with prolapse H/H stable EGD and colonoscopy today (8) Hypokalemia ICD Codes: E87.6 - Hypokalemia Status: Resolved Plan: -Potassium 2.9 on admission, normalized to 4.2 today -Patient received 10 mEq of potassium IV in the ED -Potassium phosphate 30 mEq ordered IV -Continue to monitor with magnesium (9) Nutrition, metabolism, and development symptoms ICD Codes: R63.8 - Other symptoms and signs concerning food and fluid intake Status: Acute Plan: -Fluids: Normal saline at 108 mL per hour -Diet: NPO for GI procedure -Electrolytes: continue to monitor (10) Surgical contraindication to deep vein thrombosis (DVT) prophylaxis ICD Codes: Z53.09 - Procedure and treatment not carried out because of other contraindication Status: Acute Plan: -Hold medical prophylaxis due to possible surgical intervention -SCDs (Darlene Ball MD R1) Problem Qualifiers (1) Cirrhosis: Qualified Codes: K74.60 - Unspecified cirrhosis of liver (2) Small cell lung cancer: Qualified Codes: C34.90 - Malignant neoplasm of unspecified part of unspecified bronchus or lung Darlene Ball MD R1 Dec 12, 2017 11:20 Rhett Avila MD Dec 12, 2017 16:27
[2017-12-12] MEDS ORDERED: PROPOFOL 200 MG/20 ML AMP IV ONE (12:00)
[2017-12-12] MEDS ORDERED: DO NOT ADM ANY ANTICOAGULANT DRUGS PRN (13:58)
--- NOTE | 2017-12-12 14:10 | PD.PROCEDR ---
GI Procedure PROCEDURE PERFORMED EGD with biopsy followed by colonoscopy with biopsy INDICATION FOR PROCEDURE Abdominal pain, nausea and vomiting, abnormal findings on CT, hematochezia PROCEDURE: The procedure, risks and benefits were discussed with Ms. Melgar and informed consent was obtained. Anesthesia sedated her with Diprivan. She was placed in the left lateral decubitus position. EGD: The Pentax videoscope was introduced through the oropharynx and advanced to the second portion of the duodenum under direct visualization. Retroflexion was performed in the stomach. FINDINGS: The esophagus this appeared to be unremarkable and within normal limits The stomach there was a small hiatal hernia the gastric mucosa appeared to be diffusely edematous some erythema in the antrum and 4 superficial ulcerations in the antrum the mucosal edema suggestive of portal gastropathy this would be mild the ulcers are superficial with no stigmata of high-risk bleed these were biopsied The duodenum there was a large superficial ulceration in the duodenal bulb no visible vessel this was biopsied there was also superficial erosions in the descending duodenum and this too was biopsied Colonoscopy: The Pentax videoscope was introduced through the rectum and advanced to cecum where the ileocecal valve and appendiceal orifice were identified. Retroflexion was performed in the rectum. Colonic prep was fair FINDINGS: Colonic withdrawal time greater than 6 minutes as the scope was slowly withdrawn colonic mucosa was carefully inspected there was some punctate erythema in the cecum of unclear significance this was biopsied the patient was noted to have mild to moderate diverticulosis of the sigmoid and the rectum there was a submucosal nodule in the proximal rectum most suggestive of lipoma this was biopsied for verification the distal portion of the rectum was significantly erythemic and edematous and most suggestive of rectal prolapse retroflexion was not optimal but otherwise unremarkable ESTIMATED BLOOD LOSS: Minimal SPECIMENS REMOVED: Gastric and duodenal biopsies also biopsies from the colon COMPLICATIONS: None IMPRESSION: Hiatal hernia Portal gastropathy Gastritis Gastric ulcers Duodenal ulcers Erosive duodenitis And mild to moderate diverticulosis Submucosal nodule in the rectum And rectal erythema suggestive of rectal prolapse PLAN: Await biopsies Agree with pursuing laparoscopic cholecystectomy tomorrow I would highly recommend that an intraoperative liver biopsy be done as patient has elements of liver cirrhosis etiology unclear Continue with current supportive care Liver workup to commence Vipin Moy MD Dec 12, 2017 14:10
[2017-12-12] MEDS: REMOVE OLD PATCH T-DERMAL SCH (20:56)
[2017-12-12 21:41] LABS: IRON (FE) 114 MCG/DL (50-170)
[2017-12-12 21:43] LABS: FERRITIN 939 NG/ML (8-252)
[2017-12-13] VITALS (10 sets, daily range): BP systolic 90–148; BP diastolic 53–85; PULSE 72–103; RESP 15–20; TEMP 97.5–98.8; O2SAT 93–99
[2017-12-13] MEDS: MORPHINE SULFATE 2 MG/ML INJ IV PUSH PRN ×4 (00:19→20:41)
[2017-12-13] MEDS: SODIUM CHLOR 0.9% 1000 ML INJ 1,000 ML IV SCH ×2 (00:23→20:33)
[2017-12-13] MEDS: cefTRIAXone INJ 1,000 MG in SODIUM CHLORIDE 0.9% INJ 100 ML IV SCH ×2 (03:14→18:25)
[2017-12-13] MEDS ORDERED: LACTATED RINGER'S 1000 ML IV PRN (04:00)
[2017-12-13] MEDS ORDERED: POVIDONE IODINE 5% (ANTISEPSIS KIT) 4 APPLICATIONS EACH NARE PRN (04:00)
[2017-12-13] MEDS ORDERED: CHLORHEXIDINE GLUCONATE 2 % 1 PACK (2 CLOTHS) TOPICAL PRN (04:00)
[2017-12-13] MEDS: metroNIDAZOLE 500 MG INJ 100 ML IV SCH ×2 (06:07→17:02)
[2017-12-13] MEDS ORDERED: SODIUM CHLORID 0.9% 500 ML INJ 500 ML IV ONE (07:30)
[2017-12-13] MEDS: NICOTINE 14 MG/24 HR PATCH T-DERMAL SCH (08:37)
[2017-12-13] MEDS: SODIUM CHLORIDE 0.9% FLUSH 10 ML FLUSH IV FLUSH SCH ×2 (08:38→20:31)
[2017-12-13 10:20] LABS: HEMATOCRIT 32.1 % (35.0-46.0); HEMOGLOBIN 12.5 GM/DL (11.6-15.3); MEAN CELL VOLUME 111.3 FL (80.0-100.0); MEAN CORPUSCULAR HEMOGLOBIN 43.4 PG (27.0-34.0); MEAN PLATELET VOLUME 7.4 FL (7.0-11.0); PLATELET COUNT 100 TH/MM3 (150-450); RED BLOOD COUNT 2.88 MIL/MM3 (4.00-5.30); RED CELL DISTRIBUTION WIDTH 15.1 % (11.6-17.2); WHITE BLOOD COUNT 3.3 TH/MM3 (4.0-11.0)
[2017-12-13 10:53] LABS: ALBUMIN 2.5 GM/DL (3.4-5.0); ALKALINE PHOSPHATASE 142 U/L (45-117); ALT (GPT) 28 U/L (10-53); AST (GOT) 62 U/L (15-37); BLOOD UREA NITROGEN 7 MG/DL (7-18); CALCIUM 8.3 MG/DL (8.5-10.1); CHLORIDE 106 MEQ/L (98-107); CREATININE 0.36 MG/DL (0.50-1.00); GLOMERULAR FILTRATION RATE 186 ML/MIN (>89); GLUCOSE,RANDOM 83 MG/DL (74-106); SODIUM (NA) 139 MEQ/L (136-145); TOTAL BILIRUBIN ADULT 1.6 MG/DL (0.2-1.0); TOTAL PROTEIN 7.3 GM/DL (6.4-8.2)
[2017-12-13 11:43] LABS: HEPATITIS A AB IGM NEGATIVE (NEGATIVE); HEPATITIS B CORE AB IGM NEGATIVE (NEGATIVE); HEPATITIS B SURFACE ANTIGEN NEGATIVE (NEGATIVE); HEPATITIS C AB IgG REACTIVE (NEGATIVE)
[2017-12-13] MEDS ORDERED: KETOROLAC TROMETHAMINE 30 MG/ML (IVP) VIAL IV PUSH ONE (12:00)
[2017-12-13] MEDS ORDERED: GLYCOPYRROLATE 1 MG/5 ML SYRINGE IV PUSH ONE (12:00)
[2017-12-13] MEDS ORDERED: DEXAMETHASONE SOD PHOS 4 MG/ML VIAL IV ONE (12:00)
[2017-12-13] MEDS ORDERED: NEOSTIGMINE 5 MG/5 ML SYRINGE IV PUSH ONE (12:00)
[2017-12-13] MEDS ORDERED: ROCURONIUM INJ 50 MG/5 ML SYRINGE IV PUSH ONE (12:00)
[2017-12-13] MEDS ORDERED: PROPOFOL 200 MG/20 ML AMP IV ONE (12:00)
[2017-12-13] MEDS ORDERED: PHENYLEPH/NS 1000 MCG/10 ML SYR IV ONE (12:00)
[2017-12-13] MEDS ORDERED: ONDANSETRON HCL 4 MG/2 ML VIAL IV ONE (12:00)
[2017-12-13] MEDS ORDERED: LIDOCAINE HCL 1% PF 5 ML SYRINGE OTHER ONE (12:00)
[2017-12-13] MEDS ORDERED: ceFAZolin INJ 1,000 MG VIAL IV ONE ×2 (12:00→14:24)
[2017-12-13] MEDS ORDERED: BUPIVACAINE/EPINEPHRINE 0.5% PF 30 ML VIAL ONE (13:04)
[2017-12-13] MEDS ORDERED: *RESP: ALBUTEROL 2.5 MG/3 ML NEB (PRN) PERIprocedural Use ONLY NEB ONE (15:32)
[2017-12-13] MEDS ORDERED: DO NOT ADM ANY ANTICOAGULANT DRUGS PRN (15:39)
[2017-12-13] MEDS ORDERED: LORazepam 2 MG/ML VIAL ONE (15:40)
[2017-12-13] MEDS ORDERED: MIDAZOLAM HCL 2 MG/2 ML VIAL ONE (15:45)
--- NOTE | 2017-12-13 17:57 | HHI.PR ---
cc: Uvaldo Muir MD Immediate Post Op Note Procedure Date: Dec 13, 2017 Pre Op Diagnosis: (1) Abnormal findings on diagnostic imaging of liver and biliary tract (2) Cholecystitis (3) Cirrhosis (4) Acute calculous cholecystitis Post Op Diagnosis: (1) Status post laparoscopic cholecystectomy (2) Gallstones (3) Abnormal findings on diagnostic imaging of liver and biliary tract (4) Cholecystitis (5) Cirrhosis Surgeon: Uvaldo Muir Power Transformer Repairer(s): C the operating room records Procedure: Laparoscopic cholecystectomy Laparoscopic liver biopsy Findings: Inflamed gallbladder Cirrhosis of the liver Ascites Complications: None Specimen(s) removed: Gallbladder Liver biopsy Anesthesia: General Drains: None IVF Patient to: PACU Patient Condition: Good Implant/Devices: SEE IMPLANT LOG (if applicable) Date/Time of Procedure: SEE SURGICAL CARE RECORD Uvaldo Muir MD Dec 13, 2017 17:57
--- NOTE | 2017-12-13 18:39 | HHI.FPPN ---
Subjective Remarks Patient seen and examined by medical team this afternoon and PACU after laparoscopic cholecystectomy and liver biopsy. No acute events overnight per nursing report. Surgical procedure went well without complications per nursing report. Patient is currently lethargic as she is coming off of internal anesthetic. She states that she is currently mildly short of breath, however denies any fevers, chills, chest pain, NVD, or calf tenderness. (Gus Penny MD R2) Objective Vitals Vital Signs Date Time Temp Pulse Resp B/P (MAP) Pulse Ox O2 Delivery O2 Flow Rate FiO2 12/13/17 12:00 98.8 89 18 111/55 (73) 93 12/13/17 08:24 98.0 86 18 90/54 (66) 94 12/13/17 08:00 98.6 90 18 120/58 (78) 93 12/13/17 08:00 96 Room Air 12/13/17 08:00 75 12/13/17 04:08 79 12/13/17 04:00 98.2 90 18 90/53 (65) 96 12/13/17 00:00 98.6 89 18 123/56 (78) 95 12/12/17 23:52 77 12/12/17 20:30 Room Air 12/12/17 20:00 98.3 91 18 127/58 (81) 95 12/12/17 20:00 101 I/O 12/12/17 12/12/17 12/12/17 12/13/17 12/13/17 12/13/17 07:00 15:00 23:00 07:00 15:00 23:00 Intake Total 0 ml 300 ml 800 ml 830 ml 950 ml Output Total 800 ml 30 ml Balance -800 ml 300 ml 800 ml 830 ml 920 ml Intake Oral 0 ml IV Total 800 ml 830 ml 150 ml Other 300 ml 800 ml Output Urine Total 800 ml 0 ml Estimated Blood Loss 30 ml # Voids 3 3 # Bowel Movements 7 3 5 (Gus Penny MD R2) Result Diagram: 12/13/17 0900 12/13/17 0900 Objective Remarks GENERAL: Well-nourished, well-developed female sitting up in bed in mild respiratory distress. SKIN: Warm and dry. No rash. Hyperpigmented with multiple tattoos. HEENT: Atraumatic, normocephalic with extraocular motions intact. No rhinorrhea. No visible lymphadenopathy or jugulovenous distension appreciated. CARDIOVASCULAR: Regular rate and rhythm without obvious murmurs, gallops, or rubs. 2+ pulses in all four extremities. RESPIRATORY: Clear to auscultation bilaterally with no crackles, wheezes, or rhonchi. Poor inspiratory effort. Mild increase in work of breathing currently on facemask breather. GASTROINTESTINAL: Normal exam limited due to recent procedure. Arthroscopic surgical sites, CDI. Positive bowel sounds in all 4 quadrants. MUSCULOSKELETAL: No cyanosis or edema. No calf tenderness. Ambulating well per her report. Neuro: Awake, however patient is in and out of consciousness as she is still under anesthetic postoperatively. Patient does answer intermittent questioning appropriately. (Gus Penny MD R2) A/P Assessment and Plan Mrs. Melgar is a 57-year-old female presenting with abdominal pain found to have acute calculous cholecystitis. Discharge Planning Clinical course post cholecystectomy. (Gus Penny MD R2) Attending Attestation Patient seen and examined. Case reviewed and discussed with the resident team. Agree with plan of care as discussed with me and documented in the resident note. she was seen in the post surgical care unit and was very lethargic. she had just received dilaudid plus benzos and was not making any sense or speaking much. however, her procedure had gone well and she was breathing well and had good vitals (Fatuma Munoz MD) Problem List: (1) Acute calculous cholecystitis ICD Codes: K80.00 - Calculus of gallbladder with acute cholecystitis without obstruction Status: Acute Plan: CT of the abdomen and pelvis shows an 11 mm calcified stone in the region of the neck suggesting possible impacted stone with a distended gallbladder and pericholecystic fluid suggestive IV antibiotics: Rocephin 1 g IV every 12 hours Flagyl 500 mg IV every 8 hours -Received Zosyn 1 dose in the emergency department Pain medications per General Surgery Blood cultures NGTD Normal saline at 108 mL per hour GI consulted, recommendations appreciated -Patient found to have portal gastropathy, gastritis, erosive duodenitis, and mild to moderate diverticulosis. And rectal erythema suggestive of rectal prolapse General surgery consulted, recommendations appreciated -Postop from laparoscopic cholecystectomy (2) Pelvic congestion syndrome ICD Codes: N94.89 - Other specified conditions associated with female genital organs and menstrual cycle Status: Acute Plan: Abdominal CT:Findings suggest pelvic congestion syndrome with multiple prominent varices in the cul-de-sac and free fluid in the right dependent pelvis. -Patient denies pain or vulvar varices -Continue to monitor (3) Colitis ICD Codes: K52.9 - Noninfective gastroenteritis and colitis, unspecified Status: Acute Plan: Abdominal CT:Questionable wall thickening in the right colon and cecum. Dilation of the duodenal C-loop is of uncertain significance. There is no dilation of the remainder of the small bowel. -Antibiotics and fluids as above (4) UTI (urinary tract infection) ICD Codes: N39.0 - Urinary tract infection, site not specified Status: Acute Plan: Urine culture positive for gram negative rods and (Escherichia coli),bond- sensitive Continue antibiotics as above (5) Cirrhosis ICD Codes: K74.60 - Unspecified cirrhosis of liver Status: Chronic Plan: Chronic hepatitis C infection leading to cirrhosis that is being worked up by the [facility] -She is treatment taylor for her hepatitis but is going to the process with the [facility] for treatment -UA: Urobilinogen greater than 12 (6) Small cell lung cancer ICD Codes: C34.90 - Malignant neoplasm of unspecified part of unspecified bronchus or lung Status: Chronic Plan: Patient with reported history of small cell lung cancer -Patient refused treatment at diagnosis in 2017 and does not wish to pursue treatment options at this time -Chest x-ray with no acute disease (7) Rectal prolapse ICD Codes: K62.3 - Rectal prolapse Status: Chronic Plan: Patient endorses rectal bleeding with prolapse H/H stable Colonoscopy findings confirms likely rectal prolapse (8) Hypokalemia ICD Codes: E87.6 - Hypokalemia Status: Resolved Plan: -Potassium 2.9 on admission, normalized to 4.2 today -Patient received 10 mEq of potassium IV in the ED -Potassium phosphate 30 mEq ordered IV -Continue to monitor with magnesium (9) Nutrition, metabolism, and development symptoms ICD Codes: R63.8 - Other symptoms and signs concerning food and fluid intake Status: Acute Plan: -Fluids: Normal saline at 108 mL per hour -Diet: Per general surgery as she is post-procedure -Electrolytes: continue to monitor (10) Surgical contraindication to deep vein thrombosis (DVT) prophylaxis ICD Codes: Z53.09 - Procedure and treatment not carried out because of other contraindication Status: Acute Plan: -Hold medical prophylaxis due to possible surgical intervention -SCDs (Gus Penny MD R2) Problem Qualifiers (1) Cirrhosis: Qualified Codes: K74.60 - Unspecified cirrhosis of liver (2) Small cell lung cancer: Qualified Codes: C34.90 - Malignant neoplasm of unspecified part of unspecified bronchus or lung Gus Penny MD R2 Dec 13, 2017 18:39 Fatuma Munoz MD Dec 15, 2017 13:26
[2017-12-13] MEDS: REMOVE OLD PATCH T-DERMAL SCH (20:35)
[2017-12-14] VITALS (7 sets, daily range): BP systolic 96–119; BP diastolic 52–62; PULSE 78–101; RESP 14–18; TEMP 98.2–98.4; O2SAT 95–99
[2017-12-14] MEDS: metroNIDAZOLE 500 MG INJ 100 ML IV SCH ×2 (00:02→06:25)
[2017-12-14] MEDS: cefTRIAXone INJ 1,000 MG in SODIUM CHLORIDE 0.9% INJ 100 ML IV SCH (04:25)
[2017-12-14] MEDS: MORPHINE SULFATE 2 MG/ML INJ IV PUSH PRN ×2 (06:25→10:11)
[2017-12-14] MEDS: SODIUM CHLOR 0.9% 1000 ML INJ 1,000 ML IV SCH (06:30)
--- NOTE | 2017-12-14 07:03 | MP ---
cc: MILA MUIR M.D. DATE OF PROCEDURE 12/13/2017 PREOPERATIVE DIAGNOSES 1. Cholelithiasis, cholecystitis. 2. Gastritis with duodenitis with ulcer. 3. Rectal prolapse. 4. Hepatitis C. 5. Elevated liver enzymes. POSTOP DIAGNOSES 1. Cholelithiasis, cholecystitis. 2. Gastritis with duodenitis with ulcer. 3. Rectal prolapse. 4. Hepatitis C. 5. Elevated liver enzymes. 6. Ascites. 7. Obvious cirrhosis of the liver. 8. Normal appendix. 9. Slightly inflamed cecum nonspecific. PROCEDURE 1. Diagnostic laparoscopy. 2. Laparoscopic cholecystectomy. 3. Laparoscopic liver biopsy. ANESTHESIA General. SURGEON Dr. Muir. INDICATIONS This is a pleasant 57-year-old female who has had a bout of severe gallstones, cholelithiasis, cholecystitis. She also had some rectal bleeding and hematemesis. GI workup ensued. Found that she had a rectal prolapse, slight inflammation of her cecum nonspecific and gastric and duodenal ulcer with gastritis and duodenitis with findings of elevated liver enzymes and obvious cholecystitis. Plans were made for above. PROCEDURE The patient was taken to the operating room and placed in supine position. After anesthesia, her abdomen was prepped and draped with Betadine solution. We make an incision just below the umbilicus. Veress needle inserted and saline load test performed. The abdomen is insufflated to 15 mmHg. A 10-mm trocar is introduced, the 5-mm camera is introduced. Two other working ports are placed, a 5-mm below the xyphoid, a 5-mm in the midline. When we visualize the liver it is difficult to fully expose the cystic duct and cyst artery. A third working port is placed in the right lower quadrant. The patient has obvious cirrhosis. She has ascites around the liver and down in the pelvis. Her appendix is normal. Photos are taken to document her ascites. There is obvious chronic inflammation of the gallbladder as well. We then are able to grasp the gallbladder superiorly and laterally identifying the cystic duct, cystic artery. Both are doubly ligated and transected. We then tease the gallbladder bed with the gallbladder off the gallbladder bed and place the gallbladder in the EndoCatch, pull it out through the umbilical incision. She is noted to have a large stone in the gallbladder. We then irrigate. Because of the cirrhosis, have minor oozing from the liver edge and this is sealed with the powdered Surgicel that completely creates hemostasis. We then perform a laparoscopic liver biopsy at the request of the ampoule examiner because of her persistently elevated liver enzymes and they had strongly advised for a liver biopsy so this is medically and clinically indicated to do a laparoscopic liver biopsy to assist in the medical management of this patient. The liver biopsy was performed by laparoscopic means using the [employer] Biop[employer] gun. Three passes of the liver were taken. It is noted she does have some portal hypertension because there is vigorous venous oozing. This was stopped with the electrocautery device. Three nice samples of the liver are taken to help diagnose and treat her elevated liver enzymes and clinically manage the patient so it was medically necessary to perform this laparoscopic liver biopsy at this time. After hemostasis was assured, we are then check our dissection site from where the gallbladder was removed; it is hemostatic. We evacuate all the ascites and irrigating solution. The four trocars are removed. The fascial layer at the umbilicus is closed with a 0 Vicryl. The skin is closed at all three sites with a 4-0 Vicryl. Steri-Strips applied. Sterile bandage applied. The patient had no immediate postop complications. Mila Muir MD JDB/SSB /3:14 PM /6:38 AM
[2017-12-14 07:19] LABS: AUTOMATED NEUTROPHIL # 2.5 TH/MM3 (1.8-7.7); BASOPHIL % 0.3 % (0.0-2.0); EOSINOPHIL % 0.2 % (0.0-4.0); HEMOGLOBIN 11.9 GM/DL (11.6-15.3); LYMPH % 22.7 % (9.0-44.0); LYMPHOCYTE # 0.9 TH/MM3 (1.0-4.8); MEAN CELL VOLUME 102.9 FL (80.0-100.0); MEAN PLATELET VOLUME 7.3 FL (7.0-11.0); MONO % 11.2 % (0.0-8.0); MONOCYTE # 0.4 TH/MM3 (0-0.9); NEUT % 65.6 % (16.0-70.0); PLATELET COUNT 100 TH/MM3 (150-450); RED CELL DISTRIBUTION WIDTH 15.1 % (11.6-17.2); WHITE BLOOD COUNT 3.8 TH/MM3 (4.0-11.0)
[2017-12-14 07:30] LABS: BICARBONATE 27.9 MEQ/L (21.0-32.0); CALCIUM 8.4 MG/DL (8.5-10.1); CREATININE 0.48 MG/DL (0.50-1.00); MAGNESIUM 1.6 MG/DL (1.5-2.5)
[2017-12-14] MEDS: NICOTINE 14 MG/24 HR PATCH T-DERMAL SCH (08:41)
[2017-12-14] MEDS: SODIUM CHLORIDE 0.9% FLUSH 10 ML FLUSH IV FLUSH SCH (08:41)
[2017-12-14] MEDS ORDERED: ACETAMINOPHEN/HYDROcodone 325 MG/10 MG TAB PO PRN (10:45)
[2017-12-14] MEDS ORDERED: ACETAMINOPHEN/HYDROcodone 325 MG/5 MG TAB PO PRN (10:45)
[2017-12-14] MEDS ORDERED: DOCUSATE SODIUM 50 MG/SENNA 8.6 MG TAB PO SCH (10:45)
[2017-12-14] MEDS ORDERED: NALOXONE HCL 0.4 MG/ML AMP IV PUSH PRN (10:45)
--- NOTE | 2017-12-14 11:53 | HHI.FPPN ---
Subjective Remarks No acute events overnight. Pt lying in bed this morning. Family at bedside. Patient complains of bloating and abdominal soreness this morning. She thinks it 's fluid and requesting that she get lasix. Discussed with her that bloating potentially side effect from surgery yesterday and will take time to improve. Several BM recorded yesterday per chart review. Afebrile. Denies CP, SOB, and N /V. (Darlene Ball MD R1) Objective Vitals Vital Signs Date Time Temp Pulse Resp B/P (MAP) Pulse Ox O2 Delivery O2 Flow Rate FiO2 12/14/17 08:05 98.3 89 17 96/52 (67) 99 12/14/17 04:00 98.2 94 18 111/55 (73) 95 12/14/17 03:53 78 12/14/17 00:00 98.4 99 14 119/62 (81) 98 12/13/17 23:47 103 12/13/17 20:10 97.5 72 20 148/85 (106) 99 12/13/17 20:05 97.8 100 15 114/58 (76) 94 12/13/17 20:03 97 12/13/17 19:45 Room Air 12/13/17 16:30 97.8 90 17 133/65 (87) 96 Nasal Cannula 3 12/13/17 16:15 86 18 119/59 (79) 96 Nasal Cannula 3 12/13/17 16:00 85 20 137/62 (87) 96 Nasal Cannula 3 12/13/17 15:45 89 20 150/71 (97) 100 Nasal Cannula 3 12/13/17 15:30 97.6 93 22 133/71 (91) 100 Nasal Cannula 3 12/13/17 12:00 98.8 89 18 111/55 (73) 93 I/O 12/13/17 12/13/17 12/13/17 12/14/17 12/14/17 12/14/17 07:00 15:00 23:00 07:00 15:00 23:00 Intake Total 830 ml 950 ml 1100 ml Output Total 30 ml Balance 830 ml 920 ml 1100 ml IV Total 830 ml 150 ml 1100 ml Other 800 ml Output Urine Total 0 ml Estimated Blood Loss 30 ml # Voids 3 1 # Bowel Movements 5 0 (Darlene Ball MD R1) Result Diagram: 12/14/1762212/14/17622 Objective Remarks GENERAL: Well-nourished, well-developed female sitting up in bed in mild respiratory distress. SKIN: Warm and dry. No rash. Hyperpigmented with multiple tattoos. HEENT: Atraumatic, normocephalic with extraocular motions intact. No rhinorrhea. No visible lymphadenopathy or jugulovenous distension appreciated. CARDIOVASCULAR: Regular rate and rhythm without obvious murmurs, gallops, or rubs. 2+ pulses in all four extremities. RESPIRATORY: Clear to auscultation bilaterally with no crackles, wheezes, or rhonchi. Poor inspiratory effort. Mild increase in work of breathing currently on facemask breather. GASTROINTESTINAL: Incision sites clean and dry, covered in steri-strips. Mild tenderness to palpation in all 4 quadrants. MUSCULOSKELETAL: No cyanosis or edema. No calf tenderness. Ambulating well per her report. Neuro: Awake, alert, and oriented x 3 (Darlene Ball MD R1) A/P Assessment and Plan Mrs. Melgar is a 57-year-old female presenting with abdominal pain found to have acute calculous cholecystitis. POD #1 from [facility]. Discharge Planning Pending surgical clearance (Darlene Ball MD R1) Attending Attestation Patient seen and examined. Case reviewed and discussed with the resident team. Agree with plan of care as discussed with me and documented in the resident note. she was very focused on her appearance and "bloating" of her stomach. she felt that the bloating was causing her pain. she had never had surgery before and was assured that it did take time to get back to normal and that lasix is normally frowned upon by surgeons. she is otherwise walking, eating and doing well. (Fatuma Munoz MD) Problem List: (1) Acute calculous cholecystitis ICD Codes: K80.00 - Calculus of gallbladder with acute cholecystitis without obstruction Status: Acute Plan: CT of the abdomen and pelvis shows an 11 mm calcified stone in the region of the neck suggesting possible impacted stone with a distended gallbladder and pericholecystic fluid suggestive IV antibiotics: Continue Rocephin 1 g IV every 12 hours Continue Flagyl 500 mg IV every 8 hours -Received Zosyn 1 dose in the emergency department Pain medications per General Surgery Blood cultures NGTD Normal saline at 108 mL per hour GI consulted, recommendations appreciated -Patient found to have portal gastropathy, gastritis, erosive duodenitis, and mild to moderate diverticulosis. And rectal erythema suggestive of rectal prolapse General surgery consulted, recommendations appreciated -Postop #1 from laparoscopic cholecystectomy (2) Pelvic congestion syndrome ICD Codes: N94.89 - Other specified conditions associated with female genital organs and menstrual cycle Status: Acute Plan: Abdominal CT:Findings suggest pelvic congestion syndrome with multiple prominent varices in the cul-de-sac and free fluid in the right dependent pelvis. -Patient denies pain or vulvar varices -Continue to monitor (3) Colitis ICD Codes: K52.9 - Noninfective gastroenteritis and colitis, unspecified Status: Acute Plan: Abdominal CT:Questionable wall thickening in the right colon and cecum. Dilation of the duodenal C-loop is of uncertain significance. There is no dilation of the remainder of the small bowel. -Antibiotics and fluids as above (4) UTI (urinary tract infection) ICD Codes: N39.0 - Urinary tract infection, site not specified Status: Acute Plan: Urine culture positive for gram negative rods and (Escherichia coli),bond- sensitive Continue antibiotics as above (5) Cirrhosis ICD Codes: K74.60 - Unspecified cirrhosis of liver Status: Chronic Plan: Chronic hepatitis C infection leading to cirrhosis that is being worked up by the [place] -She is treatment t[facility] for her hepatitis but is going to the process with the [place] for treatment -UA: Urobilinogen greater than 12 (6) Small cell lung cancer ICD Codes: C34.90 - Malignant neoplasm of unspecified part of unspecified bronchus or lung Status: Chronic Plan: Patient with reported history of small cell lung cancer -Patient refused treatment at diagnosis in 2017 and does not wish to pursue treatment options at this time -Chest x-ray with no acute disease (7) Rectal prolapse ICD Codes: K62.3 - Rectal prolapse Status: Chronic Plan: Patient endorses rectal bleeding with prolapse H/H stable Colonoscopy findings confirms likely rectal prolapse (8) Hypokalemia ICD Codes: E87.6 - Hypokalemia Status: Resolved Plan: -Potassium 2.9 on admission, normalized to 4.2 today -Patient received 10 mEq of potassium IV in the ED -Potassium phosphate 30 mEq ordered IV -Continue to monitor with magnesium (9) Nutrition, metabolism, and development symptoms ICD Codes: R63.8 - Other symptoms and signs concerning food and fluid intake Status: Acute Plan: -Fluids: Normal saline at 108 mL per hour -Diet: regular basic -Electrolytes: continue to monitor (10) Surgical contraindication to deep vein thrombosis (DVT) prophylaxis ICD Codes: Z53.09 - Procedure and treatment not carried out because of other contraindication Status: Acute Plan: -SCDs (Darlene Ball MD R1) Problem Qualifiers (1) Cirrhosis: Qualified Codes: K74.60 - Unspecified cirrhosis of liver (2) Small cell lung cancer: Qualified Codes: C34.90 - Malignant neoplasm of unspecified part of unspecified bronchus or lung Darlene Ball MD R1 Dec 14, 2017 11:53 Fatuma Munoz MD Dec 15, 2017 13:29
--- NOTE | 2017-12-14 13:11 | HHI.PR ---
cc: Uvaldo Muir MD Subjective Subjective Notes DAILY PROGRESS NOTE FOR SURGICAL ATTENDING, DR. UVALDO MUIR Resting in bed No issues Feeling bloated some Objective Vitals/I&O Vital Signs Date Time Temp Pulse Resp B/P (MAP) Pulse Ox O2 Delivery O2 Flow Rate FiO2 12/14/17 12:05 98.3 94 17 111/61 (78) 96 12/13/17 19:45 Room Air 12/13/17 16:30 3 Labs Laboratory Tests Test 12/14/17 06:23 White Blood Count 3.8 Red Blood Count 3.40 Hemoglobin 11.9 Hematocrit 35.0 Mean Corpuscular Volume 102.9 Mean Corpuscular Hemoglobin 35.0 Mean Corpuscular Hemoglobin Concent 34.0 Red Cell Distribution Width 15.1 Platelet Count 100 Mean Platelet Volume 7.3 Neutrophils (%) (Auto) 65.6 Lymphocytes (%) (Auto) 22.7 Monocytes (%) (Auto) 11.2 Eosinophils (%) (Auto) 0.2 Basophils (%) (Auto) 0.3 Neutrophils # (Auto) 2.5 Lymphocytes # (Auto) 0.9 Monocytes # (Auto) 0.4 Eosinophils # (Auto) 0.0 Basophils # (Auto) 0.0 CBC Comment DIFF FINAL Differential Comment Hematology Comments Blood Urea Nitrogen 7 Creatinine 0.48 Random Glucose 153 Calcium Level 8.4 Magnesium Level 1.6 Sodium Level 140 Potassium Level 4.0 Chloride Level 108 Carbon Dioxide Level 27.9 Anion Gap 4 Estimat Glomerular Filtration Rate 134 Date/Time Source Procedure Growth Status 12/09/17 23:15 Blood Peripheral Aerobic Blood Culture - Preliminary NO GROWTH IN 4 DAYS Resulted 12/09/17 23:15 Blood Peripheral Anaerobic Blood Culture - Preliminary NO GROWTH IN 4 DAYS Resulted 12/09/17 21:35 Urine Clean Catch Urine Culture - Final Escherichia Coli Complete Radiology Last Impressions Chest X-Ray 12/09/17 0000 Signed Impressions: Service Date/Time: Saturday, December 09, 2017 21:02 - CONCLUSION: The lungs are clear. Steve Alamo MD Abdomen/Pelvis CT 12/09/17 0000 Signed Impressions: Service Date/Time: Saturday, December 09, 2017 22:10 - CONCLUSION: 1. Abnormal appearance of the gallbladder with distention, thickened wall, possible pericholecystic fluid, and a 11 mm calcified stone near the neck. 2. Findings suggest pelvic congestion syndrome with multiple prominent varices in the cul-de-sac and free fluid in the right dependent pelvis. 3. Questionable wall thickening in the right colon and cecum. 4. Dilation of the duodenal C-loop is of uncertain significance. There is no dilation of the remainder of the small bowel. 5. Focal parenchymal opacity in the right costophrenic angle characterized by increased ground substance. Steve Alamo MD Cardiovascular: Regular Lungs: Clear Abdomen: Other (abdomen soft; minimally tender to palpation; incision sites c/d /i ) Extremities: No edema A/P Problem List: (1) Status post laparoscopic cholecystectomy ICD Codes: Z90.49 - Acquired absence of other specified parts of digestive tract Status: Acute (2) Acute calculous cholecystitis ICD Codes: K80.00 - Calculus of gallbladder with acute cholecystitis without obstruction Status: Acute (3) Abdominal pain ICD Codes: R10.9 - Unspecified abdominal pain Status: Acute (4) UTI (urinary tract infection) ICD Codes: N39.0 - Urinary tract infection, site not specified Status: Acute (5) Pelvic congestion syndrome ICD Codes: N94.89 - Other specified conditions associated with female genital organs and menstrual cycle Status: Acute (6) Rectal prolapse ICD Codes: K62.3 - Rectal prolapse Status: Chronic (7) Colitis ICD Codes: K52.9 - Noninfective gastroenteritis and colitis, unspecified Status: Acute (8) Hypokalemia ICD Codes: E87.6 - Hypokalemia Status: Resolved (9) Gallstones ICD Codes: K80.20 - Calculus of gallbladder without cholecystitis without obstruction (10) Abnormal findings on diagnostic imaging of liver and biliary tract ICD Codes: R93.2 - Abnormal findings on diagnostic imaging of liver and biliary tract Assessment and Plan 57 year old female with gallstones; RUQ pain; cholecystis -POD1 lap jody and liver biopsy -s/pEGD/Colonoscopy today -Regular diet -Pain control --GS clear for DC -Follow up appt Dec 21 at 10:40 AM Attending Statement NOTE FOR SURGICAL ATTENDING, DR. UVALDO MUIR I agree with above assessment and plan. The exam, history, and the medical decision-making described in the above note were completed with the assistance of the mid-level provider. I reviewed and agree with the findings presented. I attest that I had a [id number] encounter with the patient on the same day, and personally performed and documented my assessment and findings in the medical record. The following services were provided during this hospital visit: Chart data review, vital sign assessments/reviewing monitor data Review of consultations notes if present. Medication orders/review and/or management Ordering and/or reviewing lab tests Ordering and/or interpreting/reviewing x-rays and/or diagnostic studies Care of the patient and discussion of the patient with the care team Documentation time To help prompt me to consider important information that might be impacting today's encounter and assessment, information from prior notes written by myself or my colleagues may have been "brought forward/copy and pasted" into today's note. Deepthi Quintero/First S[facility] YE Dec 14, 2017 13:11 Uvaldo Muir MD Dec 14, 2017 15:35
[2017-12-14 14:13] LABS: SMOOTH MUSCLE TOTAL AUTOABS Negative (Negative)
[2017-12-14] MEDS ORDERED: PERI PO (14:46)
[2017-12-14] MEDS ORDERED: METR-1 PO (14:46)
[2017-12-14] MEDS ORDERED: CIPR500T2 PO (14:46)
--- NOTE | 2017-12-14 14:47 | HHI.DS ---
Discharge Summary Admission Date Dec 10, 2017 at 00:40 Admitting Diagnosis abdominal pain/cholecystitis; colitis; hypokalemia; pelvic congestio (1) Acute calculous cholecystitis Plan: CT of the abdomen and pelvis shows an 11 mm calcified stone in the region of the neck suggesting possible impacted stone with a distended gallbladder and pericholecystic fluid suggestive IV antibiotics: Continue Rocephin 1 g IV every 12 hours Continue Flagyl 500 mg IV every 8 hours -Received Zosyn 1 dose in the emergency department Pain medications per General Surgery Blood cultures NGTD Normal saline at 108 mL per hour GI consulted, recommendations appreciated -Patient found to have portal gastropathy, gastritis, erosive duodenitis, and mild to moderate diverticulosis. And rectal erythema suggestive of rectal prolapse General surgery consulted, recommendations appreciated -Postop #1 from laparoscopic cholecystectomy ICD Codes: K80.00 - Calculus of gallbladder with acute cholecystitis without obstruction Status: Acute (2) Pelvic congestion syndrome Plan: Abdominal CT:Findings suggest pelvic congestion syndrome with multiple prominent varices in the cul-de-sac and free fluid in the right dependent pelvis. -Patient denies pain or vulvar varices -Continue to monitor ICD Codes: N94.89 - Other specified conditions associated with female genital organs and menstrual cycle Status: Acute (3) Colitis Plan: Abdominal CT:Questionable wall thickening in the right colon and cecum. Dilation of the duodenal C-loop is of uncertain significance. There is no dilation of the remainder of the small bowel. -Antibiotics and fluids as above ICD Codes: K52.9 - Noninfective gastroenteritis and colitis, unspecified Status: Acute (4) UTI (urinary tract infection) Plan: Urine culture positive for gram negative rods and (Escherichia coli),bond- sensitive Continue antibiotics as above ICD Codes: N39.0 - Urinary tract infection, site not specified Status: Acute (5) Cirrhosis Plan: Chronic hepatitis C infection leading to cirrhosis that is being worked up by the [place] -She is treatment [facility] for her hepatitis but [facility] -UA: Urobilinogen greater than 12 ICD Codes: K74.60 - Unspecified cirrhosis of liver Status: Chronic (6) Small cell lung cancer Plan: Patient with reported history of small cell lung cancer -Patient refused treatment at diagnosis in 2017 and does not wish to pursue treatment options at this time -Chest x-ray with no acute disease ICD Codes: C34.90 - Malignant neoplasm of unspecified part of unspecified bronchus or lung Status: Chronic (7) Rectal prolapse Plan: Patient endorses rectal bleeding with prolapse H/H stable Colonoscopy findings confirms likely rectal prolapse ICD Codes: K62.3 - Rectal prolapse Status: Chronic (8) Hypokalemia Plan: -Potassium 2.9 on admission, normalized to 4.2 today -Patient received 10 mEq of potassium IV in the ED -Potassium phosphate 30 mEq ordered IV -Continue to monitor with magnesium ICD Codes: E87.6 - Hypokalemia Status: Resolved (9) Nutrition, metabolism, and development symptoms Plan: -Fluids: Normal saline at 108 mL per hour -Diet: regular basic -Electrolytes: continue to monitor ICD Codes: R63.8 - Other symptoms and signs concerning food and fluid intake Status: Acute (10) Surgical contraindication to deep vein thrombosis (DVT) prophylaxis Plan: -SCDs ICD Codes: Z53.09 - Procedure and treatment not carried out because of other contraindication Status: Acute Brief History Patient seen and examined with family counselor team this morning and patient states that she still is having some significant abdominal discomfort. During rounds, she had just received her pain medication and she states that her pain was rated a 5/10 which was down from an 8/10. She did have a bowel movement that she describes as loose without evidence of blood in her stool. She denies nausea or vomiting, she denies prolapse with her bowel movement this morning, she denies chest pain or palpitations. In summary this is a 57-year-old female with a history of recurrent rectal prolapse who comes in to the emergency department with diffuse abdominal pain. She describes the abdominal pain as sharp/stabbing that is worse after eating meals. She states it is worse in the right upper quadrant and left lower quadrant. She denies any fevers or chills but has been nauseated without emesis during this time. CBC/BMP: 12/14/17 0623 12/14/17 0623 Significant Findings Laboratory Tests Test 12/12/17 04:33 12/13/17 09:00 12/14/17 06:23 Red Blood Count 3.41 MIL/MM3 (4.00-5.30) 2.88 MIL/MM3 (4.00-5.30) 3.40 MIL/MM3 (4.00-5.30) Mean Corpuscular Volume 103.3 FL (80.0-100.0) 111.3 FL (80.0-100.0) 102.9 FL (80.0-100.0) Mean Corpuscular Hemoglobin 35.1 PG (27.0-34.0) 43.4 PG (27.0-34.0) 35.0 PG (27.0-34.0) Platelet Count 77 TH/MM3 (150-450) 100 TH/MM3 (150-450) 100 TH/MM3 (150-450) Creatinine 0.37 MG/DL (0.50-1.00) 0.36 MG/DL (0.50-1.00) 0.48 MG/DL (0.50-1.00) Random Glucose 70 MG/DL (74-106) 153 MG/DL (74-106) Albumin 2.4 GM/DL (3.4-5.0) 2.5 GM/DL (3.4-5.0) Alkaline Phosphatase 135 U/L (45-117) 142 U/L (45-117) Aspartate Amino Transf (AST/SGOT) 61 U/L (15-37) 62 U/L (15-37) Total Bilirubin 2.5 MG/DL (0.2-1.0) 1.6 MG/DL (0.2-1.0) Chloride Level 108 MEQ/L (98-107) 108 MEQ/L (98-107) Anion Gap 2 MEQ/L (5-15) 4 MEQ/L (5-15) Ferritin 939 NG/ML (8-252) White Blood Count 3.3 TH/MM3 (4.0-11.0) 3.8 TH/MM3 (4.0-11.0) Hematocrit 32.1 % (35.0-46.0) Mean Corpuscular Hemoglobin Concent 39.0 % (32.0-36.0) Calcium Level 8.3 MG/DL (8.5-10.1) 8.4 MG/DL (8.5-10.1) Potassium Level 3.1 MEQ/L (3.5-5.1) Hepatitis C Antibody REACTIVE (NEGATIVE) Monocytes (%) (Auto) 11.2 % (0.0-8.0) Lymphocytes # (Auto) 0.9 TH/MM3 (1.0-4.8) PE at Discharge GENERAL: Well-nourished, well-developed female sitting up in bed in mild respiratory distress. SKIN: Warm and dry. No rash. Hyperpigmented with multiple tattoos. HEENT: Atraumatic, normocephalic with extraocular motions intact. No rhinorrhea. No visible lymphadenopathy or jugulovenous distension appreciated. CARDIOVASCULAR: Regular rate and rhythm without obvious murmurs, gallops, or rubs. 2+ pulses in all four extremities. RESPIRATORY: Clear to auscultation bilaterally with no crackles, wheezes, or rhonchi. Poor inspiratory effort. Mild increase in work of breathing currently on facemask breather. GASTROINTESTINAL: Incision sites clean and dry, covered in steri-strips. Mild tenderness to palpation in all 4 quadrants. MUSCULOSKELETAL: No cyanosis or edema. No calf tenderness. Ambulating well per her report. Neuro: Awake, alert, and oriented x 3 Darlene Ball MD R1 Dec 14, 2017 14:47
--- NOTE | 2017-12-14 14:48 | HHI.DCPOC ---
Discharge Care Plan Diagnosis: (1) UTI (urinary tract infection) (2) Acute calculous cholecystitis Goals to Promote Your Health * To prevent worsening of your condition and complications * To maintain your health at the optimal level Directions to Meet Your Goals Take your medications as prescribed Follow your dietary instruction Follow activity as directed Keep your appointments as scheduled Take your immunizations and boosters as scheduled If your symptoms worsen call your PCP, if no PCP go to Urgent Care Center or Emergency Room Smoking is Dangerous to Your Health. Avoid second hand smoke Call the 24-hour hour crisis hotline for domestic abuse at Darlene Ball MD R1 Dec 14, 2017 14:47
[2017-12-14] MEDS ORDERED: HYDR-3516 PO ×2 (14:52→18:48)
[2017-12-15 13:41] LABS: ANA SCREEN POS (NEG)
[2017-12-17 23:51] LABS: MITOCHONDRIAL ABS LESS THAN 20.0 U (<=20.0)
[2017-12-18 16:10] LABS: ANA PATTERN DIFFUSE
== END 2017-12-14 16:30 | disposition home or self-care (01) | DRG 418 ==
LOC: NEPC 20:02 → NEDA 12-10 00:40 → N04A 12-10 05:45
PROVIDERS: ADMIT Family Medicine; ATTEND Family Medicine
PROC: 0DB98ZX Excision of Duodenum, Via Natural or Artificial Opening Endoscopic, Diagnostic (ICD-10-PCS; 2017-12-12)
PROC: 0DB78ZX Excision of Stomach, Pylorus, Via Natural or Artificial Opening Endoscopic, Diagnostic (ICD-10-PCS; 2017-12-12)
PROC: 0DBH8ZX Excision of Cecum, Via Natural or Artificial Opening Endoscopic, Diagnostic (ICD-10-PCS; 2017-12-12)
PROC: 0DBP8ZX Excision of Rectum, Via Natural or Artificial Opening Endoscopic, Diagnostic (ICD-10-PCS; 2017-12-12)
PROC: 0FB04ZX Excision of Liver, Percutaneous Endoscopic Approach, Diagnostic (ICD-10-PCS; 2017-12-13)
PROC: 0FT44ZZ Resection of Gallbladder, Percutaneous Endoscopic Approach (ICD-10-PCS; principal; 2017-12-13 14:03)
DX: K80.00 Calculus of gallbladder with acute cholecystitis without obstruction (principal); K76.6 Portal hypertension; R18.8 Other ascites; J43.9 Emphysema, unspecified; K26.9 Duodenal ulcer, unspecified as acute or chronic, without hemorrhage or perforation; C34.90 Malignant neoplasm of unspecified part of unspecified bronchus or lung; N39.0 Urinary tract infection, site not specified; K74.60 Unspecified cirrhosis of liver; K62.3 Rectal prolapse; B18.2 Chronic viral hepatitis C; K44.9 Diaphragmatic hernia without obstruction or gangrene; K31.89 Other diseases of stomach and duodenum; K29.70 Gastritis, unspecified, without bleeding; K25.9 Gastric ulcer, unspecified as acute or chronic, without hemorrhage or perforation; K29.80 Duodenitis without bleeding; K57.30 Diverticulosis of large intestine without perforation or abscess without bleeding; E87.6 Hypokalemia; F17.210 Nicotine dependence, cigarettes, uncomplicated; Z66 Do not resuscitate; K52.9 Noninfective gastroenteritis and colitis, unspecified; G89.29 Other chronic pain; M54.5 Low back pain; R93.2 Abnormal findings on diagnostic imaging of liver and biliary tract; N94.89 Other specified conditions associated with female genital organs and menstrual cycle; I86.2 Pelvic varices
CPT/HCPCS: 71045; 74177; 80048; 80053; 80074; 81001; 82390; 82607; 82728; 82746; 83520; 83540; 83605; 83690; 83735; 85025; 85027; 85610; 85730; 86038; 86039; 86077; 86255; 86850; 86870; 86880; 86900; 86901; 86922; 87040; 87077; 87086; 87186; 88304; 88305; 88307; 88312; 88313; 93005; 94150; 96365; 96367; 96375; E0100; J0690; J0696; J1100; J1885; J2060; J2250; J2270; J2370; J2405; J2543; J2710; J3010; J3475; J3480; J7030; J7050; J7613; Q9967

== ENCOUNTER 2018-01-09 20:21 | Inpatient (IN) | payer OTHER, MEDICARE ==
[~2018-01-09] VITALS: Ht 170.2 cm; Wt 73.5 kg
[~2018-01-09 20:21] MED LIST changes: +CIPR500T2 PO; -COLA100C5 PO; +GABA600T PO; +HYDR-3516 PO; +METR-1 PO; -MIRA3350 PO; +PERI PO
[2018-01-09 21:13] VITALS: BP 126/57; PULSE 119; RESP 22; O2SAT 95
[2018-01-09] MEDS ORDERED: PANTOPRAZOLE INJ 80 MG in SODIUM CHLORIDE 0.9% INJ 35 ML IV ONE (21:43)
[2018-01-09] MEDS ORDERED: SODIUM CHLOR 0.9% 1000 ML INJ 1,000 ML IV SCH (21:43)
[2018-01-09] MEDS ORDERED: ONDANSETRON HCL 4 MG/2 ML VIAL IVP ONE (21:45)
[2018-01-09] MEDS ORDERED: SODIUM CHLORIDE 0.9% FLUSH 10 ML FLUSH IVF PRN (21:45)
--- NOTE | 2018-01-09 22:19 | PD ---
HPI Chief Complaint: GI Complaint Time Seen by Provider: 21:32 Travel History International Travel<30 days: No Contact w/Intl Traveler<30days: No Traveled to known affect area: No History of Present Illness HPI 57-year-old female with PMH of cirrhosis, hepatitis C, COPD, metastatic lung cancer, colitis, recent laparoscopic cholecystectomy and liver biopsy on presents to the ED for evaluation of approximately 24-hour history of hematemesis. Patient endorses 10/10 generalized abdominal pain which has been present since her laparoscopic cholecystectomy. She had follow-up with Dr. Muir and was told that "it will resolve." She states that she was feeling well until last night when she became nauseated and had copious thin, dark episodes of hematemesis. She denies changes in bowel habits, last BM today, well formed and nonbloody according to the patient. She denies dizziness, chest pain, shortness of breath, dysuria. She states that she quit drinking "seriously" about 7 years ago and now only drinks "socially on the weekends." She declined stating she had her last drink. She smokes a pack a day. PFSH Past Medical History Asthma: No Anxiety: Yes (situational associated with ptsd) Heart Rhythm Problems: No Cancer: Yes (LUNG WITH METS) Cardiovascular Problems: Yes High Cholesterol: No Chemotherapy: No Chest Pain: No Congestive Heart Failure: No Cirrhosis: Yes COPD: Yes Cerebrovascular Accident: No Gastrointestinal Disorders: Yes (RECTAL PROLAPSE,colitis) Genitourinary: Yes Hepatitis: Yes Immune Disorder: No Musculoskeletal: No Neurologic: Yes Psychiatric: Yes Reproductive: No Respiratory: Yes Migraines: No Radiation Therapy: No Seizures: No Sleep Apnea: No Thyroid Disease: No ?: Not Past Surgical History Abdominal Surgery: Yes Cardiac Surgery: No Section: Yes Ear Surgery: No Endocrine Surgery: No Eye Surgery: No Genitourinary Surgery: No Gynecologic Surgery: Yes () Oral Surgery: No Thoracic Surgery: No Other Surgery: Yes () Social History Alcohol Use: Yes (SOCIALLY ON THE WEEKENDS ) Tobacco Use: Yes (PACK A DAY ) Substance Use: No (medical marijuana card buenrostro) Allergies-Medications (Allergen,Severity, Reaction): Coded Allergies: No Known Allergies (Verified Allergy, Unknown, 11/17/17) Reported Meds & Prescriptions Reported Meds & Active Scripts Active Review of Systems Except as stated in HPI: all other systems reviewed are Neg Physical Exam Narrative GENERAL: Well-nourished, well-developed anxious white female in no acute distress. SKIN: Focused skin assessment warm/dry. HEAD: Normocephalic. EYES: No scleral icterus. No injection or drainage. NECK: Supple, trachea midline. No JVD or lymphadenopathy. CARDIOVASCULAR: Regular rate and rhythm without murmurs, gallops, or rubs. RESPIRATORY: Breath sounds clear and equal bilaterally. No accessory muscle use. GASTROINTESTINAL: Abdomen firm, distended, diffusely tender. No fluid wave. Hypoactive bowel sounds. MUSCULOSKELETAL: No cyanosis, or edema. BACK: Nontender without obvious deformity. No CVA tenderness. Data Data Last Documented VS Vital Signs Date Time Temp Pulse Resp B/P (MAP) Pulse Ox O2 Delivery O2 Flow Rate FiO2 01/10/18 02:00 114 18 104/51 (68) 92 Room Air Orders Orders Complete Blood Count With Diff (01/09/18 21:43) Comprehensive Metabolic Panel (01/09/18 21:43) Lipase (01/09/18 21:43) Prothrombin Time / Inr (Pt) (01/09/18 21:43) Act Partial Throm Time (Ptt) (01/09/18 21:43) Alcohol (Ethanol) (01/09/18 21:43) Urinalysis - C+S If Indicated (01/09/18 21:43) Type And Screen (01/09/18 21:43) Ecg Monitoring (01/09/18 21:43) Iv Access Insert/Monitor (01/09/18 21:43) Oximetry (01/09/18 21:43) Ondansetron Inj (Zofran Inj) (01/09/18 21:45) Sodium Chlor 0.9% 1000 Ml Inj (Ns 1000 M (01/09/18 21:43) Sodium Chloride 0.9% Flush (Ns Flush) (01/09/18 21:45) Sodium Chlorid 0.9%... W/Octreotide Inj (01/09/18 21:43) Sodium Chloride 0.9... W/Pantoprazole In (01/09/18 21:43) Sodium Chloride 0.9... W/Pantoprazole In (01/09/18 21:43) Abdomen, Flat & Upright (01/09/18 ) Lactic Acid (01/09/18 22:07) Ct Abd/Pel W Iv Contrast(Rout) (01/09/18 22:31) Morphine Inj (Morphine Inj) (01/09/18 23:00) Red Blood Cells (Rbc) (01/09/18 22:30) Iohexol 350 Inj (Omnipaque 350 Inj) (01/10/18 00:28) Admit To Inpatient (01/10/18 ) Vital Signs (Adult) Q4H (01/10/18 02:40) Activity Oob With Assistance (01/10/18 02:40) Fiberglass Container Winding Operator / Telemetry .CONTINUOUS (01/10/18 02:40) Diet Npo (01/10/18 Breakfast) Sodium Chloride 0.9% Flush (Ns Flush) (01/10/18 02:45) Sodium Chloride 0.9% Flush (Ns Flush) (01/10/18 09:00) Comprehensive Metabolic Panel (01/11/18 06:00) Complete Blood Count With Diff (01/11/18 06:00) Case Management Consult (01/10/18 02:40) Naloxone Inj (Narcan Inj) (01/10/18 02:45) Inpatient Certification (01/10/18 ) Us Guided Abd Paracentesis (01/10/18 ) Peritoneal Cell Count + Diff (01/10/18 02:40) Total Protein Peritoneal Fluid (01/10/18 02:40) Albumin, Peritoneal Fluid (01/10/18 02:40) Glucose, Peritoneal Fluid (01/10/18 02:40) Ldh, Peritoneal Fluid (01/10/18 02:40) Fluid Culture And Gram Stain (01/10/18 02:40) Cytology Request For Service (01/10/18 02:40) Consult Gastroenterology (01/10/18 ) Admit Order (Ed Use Only) (01/10/18 02:48) Phytonadione Liq (Mephyton Liq) (01/10/18 03:00) Phytonadione Liq (Mephyton Liq) (01/10/18 09:00) Labs Laboratory Tests Test 01/09/18 22:30 White Blood Count 10.7 TH/MM3 Red Blood Count 4.12 MIL/MM3 Hemoglobin 14.4 GM/DL Hematocrit 42.1 % Mean Corpuscular Volume 102.3 FL Mean Corpuscular Hemoglobin 35.0 PG Mean Corpuscular Hemoglobin Concent 34.3 % Red Cell Distribution Width 15.4 % Platelet Count 127 TH/MM3 Mean Platelet Volume 8.0 FL Neutrophils (%) (Auto) 78.7 % Lymphocytes (%) (Auto) 14.6 % Monocytes (%) (Auto) 6.2 % Eosinophils (%) (Auto) 0.1 % Basophils (%) (Auto) 0.4 % Neutrophils # (Auto) 8.4 TH/MM3 Lymphocytes # (Auto) 1.6 TH/MM3 Monocytes # (Auto) 0.7 TH/MM3 Eosinophils # (Auto) 0.0 TH/MM3 Basophils # (Auto) 0.0 TH/MM3 CBC Comment DIFF FINAL Differential Comment Hematology Comments Prothrombin Time 20.2 SEC Prothromb Time International Ratio 2.0 RATIO Activated Partial Thromboplast Time 36.4 SEC Blood Urea Nitrogen 19 MG/DL Creatinine 1.35 MG/DL Random Glucose 87 MG/DL Total Protein 6.6 GM/DL Albumin 2.2 GM/DL Calcium Level 9.1 MG/DL Alkaline Phosphatase 141 U/L Aspartate Amino Transf (AST/SGOT) 110 U/L Alanine Aminotransferase (ALT/SGPT) 43 U/L Total Bilirubin 3.8 MG/DL Sodium Level 139 MEQ/L Potassium Level 4.2 MEQ/L Chloride Level 99 MEQ/L Carbon Dioxide Level 26.8 MEQ/L Anion Gap 13 MEQ/L Estimat Glomerular Filtration Rate 41 ML/MIN Lactic Acid Level 6.8 mmol/L Lipase 86 U/L Ethyl Alcohol Level LESS THAN 3 MG/DL [facility] Medical Decision Making Medical Screen Exam Complete: Yes Emergency Medical Condition: Yes Differential Diagnosis Liver failure versus free air versus ascites versus esophageal varices versus GI bleed versus other Narrative Course 57-year-old female with PMH of cirrhosis, hepatitis C, COPD, metastatic lung cancer, colitis, recent laparoscopic cholecystectomy and liver biopsy on presents to the ED for evaluation of approximately 24-hour history of hematemesis. Patient endorses 10/10 generalized abdominal pain which has been present since her laparoscopic cholecystectomy. Became nauseated last night with copious thin, dark episodes of hematemesis. Endorses social drinking. Patient's tachycardic, BP 126/57 on presentation. On exam this is an anxious white female with a tender, distended and tense abdomen. Gastric secretions positive on guaiac testing. There is 2+ edema in the lower extremities. IV was established. Pantoprazole bolus and drip initiated. Patient was administered octreotide, 1 liter normal saline, 4 mg Zofran, 4 mg morphine IV. Labs and radiological imaging ordered and pending. I reviewed the patient's record. She had upper and lower endoscopy in November prior to her cholecystectomy. No mention of esophageal varices in the report. Patient signed out to Dr. Garcia at end of shift. Please see his note for disposition. HemaPrompt Point of Care Internal Pos. & Neg. Controls: Passed Gastric Specimen Occult Blood: Positive Mariam Sanabria Jan 09, 2018 22:19
--- NOTE | 2018-01-09 22:34 | RADRPT ---
EXAM DATE/TIME: 01/09/2018 22:06 [facility] COMPARISON: CT ABDOMEN & PELVIS W CONTRAST, December 09, 2017, 22:10. INDICATIONS : Abdominal pain and bloating for the past three weeks. Vomiting up blood since yesterday. MEDICAL HISTORY : Chronic obstructive pulmonary disease. Lung cancer with mets. Rectal prolapse. SURGICAL HISTORY : Cholecystectomy. section. ENCOUNTER: [facility] ACUITY: 3 weeks PAIN SCORE: 10/10 LOCATION: Abdomen. FINDINGS: Overall paucity of bowel gas. Nothing convincingly distended. No free air. There is cirrhosis and splenomegaly. Probably small ascites. CONCLUSION: Nonspecific, nonobstructive bowel gas pattern. Splenomegaly and suspected small ascites. Guille Elkins MD on January 09, 2018 at 22:31 Board Certified Radiologist. This report was verified electronically.
[2018-01-09] MEDS: PANTOPRAZOLE INJ 80 MG in SODIUM CHLORIDE 0.9% INJ 100 ML IV SCH (22:59)
[2018-01-09] MEDS ORDERED: MORPHINE SULFATE 4 MG/ML INJ IV PUSH ONE (23:00)
[2018-01-09 23:01] LABS: ALBUMIN 2.2 GM/DL (3.4-5.0); ALT (GPT) 43 U/L (10-53); AST (GOT) 110 U/L (15-37); BICARBONATE 26.8 MEQ/L (21.0-32.0); BLOOD UREA NITROGEN 19 MG/DL (7-18); CALCIUM 9.1 MG/DL (8.5-10.1); CHLORIDE 99 MEQ/L (98-107); CREATININE 1.35 MG/DL (0.50-1.00); GLOMERULAR FILTRATION RATE 41 ML/MIN (>89); GLUCOSE,RANDOM 87 MG/DL (74-106); SODIUM (NA) 139 MEQ/L (136-145)
[2018-01-09 23:03] LABS: ALKALINE PHOSPHATASE 141 U/L (45-117); TOTAL BILIRUBIN ADULT 3.8 MG/DL (0.2-1.0); TOTAL PROTEIN 6.6 GM/DL (6.4-8.2)
[2018-01-09 23:13] LABS: PROTHROMBIN TIME - PATIENT 20.2 SEC (9.8-11.6)
[2018-01-09 23:27] LABS: AUTOMATED NEUTROPHIL # 8.4 TH/MM3 (1.8-7.7); BASOPHIL % 0.4 % (0.0-2.0); EOSINOPHIL % 0.1 % (0.0-4.0); HEMATOCRIT 42.1 % (35.0-46.0); HEMOGLOBIN 14.4 GM/DL (11.6-15.3); LYMPH % 14.6 % (9.0-44.0); LYMPHOCYTE # 1.6 TH/MM3 (1.0-4.8); MEAN CELL VOLUME 102.3 FL (80.0-100.0); MEAN CORPUSCULAR HGB CONC 34.3 % (32.0-36.0); MONO % 6.2 % (0.0-8.0); MONOCYTE # 0.7 TH/MM3 (0-0.9); NEUT % 78.7 % (16.0-70.0); PLATELET COUNT 127 TH/MM3 (150-450); RED BLOOD COUNT 4.12 MIL/MM3 (4.00-5.30); RED CELL DISTRIBUTION WIDTH 15.4 % (11.6-17.2); WHITE BLOOD COUNT 10.7 TH/MM3 (4.0-11.0)
[2018-01-09] MEDS: OCTREOTIDE INJ 500 MCG in SODIUM CHLORID 0.9% 500 ML INJ 500 ML IV SCH (23:40)
[2018-01-10] VITALS (18 sets, daily range): BP systolic 86–111; BP diastolic 44–54; PULSE 90–114; RESP 15–22; TEMP 98–98.9; O2SAT 91–97
[2018-01-10] MEDS ORDERED: IOHEXOL 350 MG/ML 10 ML VIAL (for RAD DIAG) IVCONTRAST ONE (00:28)
--- NOTE | 2018-01-10 00:56 | RADRPT ---
EXAM DATE/TIME: 01/10/2018 00:19 [facility] COMPARISON: CT ABDOMEN & PELVIS W CONTRAST, December 09, 2017, 22:10. INDICATIONS : Abdominal pain with hemoptysis. IV CONTRAST: 75 cc Omnipaque 350 (iohexol) IV ORAL CONTRAST: No oral contrast ingested. RADIATION DOSE: 6.97 CTDIvol (mGy) MEDICAL HISTORY : Chronic obstructive pulmonary disease. Hepatitis C. Carcinoma, lung.Colitis. SURGICAL HISTORY : Cholecystectomy. section. ENCOUNTER: Initial ACUITY: 3 days PAIN SCALE: 7/10 LOCATION: Abdomen. TECHNIQUE: Volumetric scanning of the abdomen and pelvis was performed. Using automated exposure control and ad justment of the mA and/or kV according to patient size, radiation dose was kept as low as reasonably achievable to obtain optimal diagnostic quality images. DICOM format image data is available electro nically for review and comparison. FINDINGS: LOWER LUNGS: Pericholecystic seen at the GE junction. There is fluid within the lower thoracic esophagus. There is concern for possible wall thickening of the lower thoracic esophagus approaching the GE junction. Ch ronic interstitial changes within the lung bases. Atelectasis involving the left lung base. LIVER: Cirrhotic changes observed. No mass or ductal dilatation. Gallbladder surgically absent. SPLEEN: Normal size without lesion. PANCREAS: Within normal limits. KIDNEYS: Normal in size and shape. There is no mass, stone or hydronephrosis. ADRENAL GLANDS: Within normal limits. VASCULAR: There is no aortic aneurysm. BOWEL/MESENTERY: Large volume ascites noted. Scattered colonic diverticuli. No free air. ABDOMINAL WALL: Anasarca. RETROPERITONEUM: There is no lymphadenopathy. BLADDER: No wall thickening or mass. REPRODUCTIVE: Varicosities are seen involving the left hemipelvis. INGUINAL: There is no lymphadenopathy or hernia. MUSCULOSKELETAL: Within normal limits for patient age. CONCLUSION: 1. Cirrhosis with varicosities at the GE junction as well as within the left hemipelvis. 2. Circumferential wall thickening involving the lower thoracic esophagus. This could relate to venou s congestion given the underlying cirrhotic liver. I cannot exclude an infiltrating mass. 3. Large volume ascites. 4. Anasarca. 5. Prior cholecystectomy. Steve King Jr., MD on January 10, 2018 at 0:44 Board Certified Radiologist. This report was verified electronically.
--- NOTE | 2018-01-10 02:22 | PD ---
Physical Exam Narrative GENERAL: SKIN: Warm and dry. HEAD: Atraumatic. Normocephalic. EYES: Pupils equal and round. No scleral icterus. No injection or drainage. No icterus ENT: No nasal bleeding or discharge. Mucous membranes pink and moist. NECK: Trachea midline. No JVD. CARDIOVASCULAR: Regular rate and rhythm. RESPIRATORY: No accessory muscle use. Clear to auscultation. Breath sounds equal bilaterally. GASTROINTESTINAL: Abdomen distended with fluid wave present consistent with asciteS. MUSCULOSKELETAL: Extremities without clubbing, cyanosis, or edema. No obvious deformities. NEUROLOGICAL: Awake and alert. No obvious cranial nerve deficits. Motor grossly within normal limits. Five out of 5 muscle strength in the arms and legs. Normal speech. PSYCHIATRIC: Appropriate mood and affect; insight and judgment normal. Data Data Last Documented VS Orders Orders Complete Blood Count With Diff (01/09/18 21:43) Comprehensive Metabolic Panel (01/09/18 21:43) Lipase (01/09/18 21:43) Prothrombin Time / Inr (Pt) (01/09/18 21:43) Act Partial Throm Time (Ptt) (01/09/18 21:43) Alcohol (Ethanol) (01/09/18 21:43) Urinalysis - C+S If Indicated (01/09/18 21:43) Type And Screen (01/09/18 21:43) Ecg Monitoring (01/09/18 21:43) Iv Access Insert/Monitor (01/09/18 21:43) Oximetry (01/09/18 21:43) Ondansetron Inj (Zofran Inj) (01/09/18 21:45) Sodium Chlor 0.9% 1000 Ml Inj (Ns 1000 M (01/09/18 21:43) Sodium Chloride 0.9% Flush (Ns Flush) (01/09/18 21:45) Sodium Chlorid 0.9%... W/Octreotide Inj (01/09/18 21:43) Sodium Chloride 0.9... W/Pantoprazole In (01/09/18 21:43) Sodium Chloride 0.9... W/Pantoprazole In (01/09/18 21:43) Abdomen, Flat & Upright (01/09/18 ) Lactic Acid (01/09/18 22:07) Ct Abd/Pel W Iv Contrast(Rout) (01/09/18 22:31) Morphine Inj (Morphine Inj) (01/09/18 23:00) Iohexol 350 Inj (Omnipaque 350 Inj) (01/10/18 00:28) Vital Signs (Adult) Q4H (01/10/18 02:40) Diet Npo (01/10/18 Breakfast) Sodium Chloride 0.9% Flush (Ns Flush) (01/10/18 02:45) Sodium Chloride 0.9% Flush (Ns Flush) (01/10/18 09:00) Comprehensive Metabolic Panel (01/11/18 06:00) Complete Blood Count With Diff (01/11/18 06:00) Naloxone Inj (Narcan Inj) (01/10/18 02:45) Inpatient Certification (01/10/18 ) Us Guided Abd Paracentesis (01/10/18 ) Peritoneal Cell Count + Diff (01/10/18 02:40) Total Protein Peritoneal Fluid (01/10/18 02:40) Albumin, Peritoneal Fluid (01/10/18 02:40) Glucose, Peritoneal Fluid (01/10/18 02:40) Ldh, Peritoneal Fluid (01/10/18 02:40) Fluid Culture And Gram Stain (01/10/18 02:40) Cytology Request For Service (01/10/18 02:40) Consult Gastroenterology (01/10/18 ) Admit Order (Ed Use Only) (01/10/18 02:48) Phytonadione Liq (Mephyton Liq) (01/10/18 03:00) Phytonadione Liq (Mephyton Liq) (01/10/18 09:00) Labs Laboratory Tests Test 01/09/18 22:30 White Blood Count 10.7 TH/MM3 Red Blood Count 4.12 MIL/MM3 Hemoglobin 14.4 GM/DL Hematocrit 42.1 % Mean Corpuscular Volume 102.3 FL Mean Corpuscular Hemoglobin 35.0 PG Mean Corpuscular Hemoglobin Concent 34.3 % Red Cell Distribution Width 15.4 % Platelet Count 127 TH/MM3 Mean Platelet Volume 8.0 FL Neutrophils (%) (Auto) 78.7 % Lymphocytes (%) (Auto) 14.6 % Monocytes (%) (Auto) 6.2 % Eosinophils (%) (Auto) 0.1 % Basophils (%) (Auto) 0.4 % Neutrophils # (Auto) 8.4 TH/MM3 Lymphocytes # (Auto) 1.6 TH/MM3 Monocytes # (Auto) 0.7 TH/MM3 Eosinophils # (Auto) 0.0 TH/MM3 Basophils # (Auto) 0.0 TH/MM3 CBC Comment DIFF FINAL Differential Comment Hematology Comments Prothrombin Time 20.2 SEC Prothromb Time International Ratio 2.0 RATIO Activated Partial Thromboplast Time 36.4 SEC Blood Urea Nitrogen 19 MG/DL Creatinine 1.35 MG/DL Random Glucose 87 MG/DL Total Protein 6.6 GM/DL Albumin 2.2 GM/DL Calcium Level 9.1 MG/DL Alkaline Phosphatase 141 U/L Aspartate Amino Transf (AST/SGOT) 110 U/L Alanine Aminotransferase (ALT/SGPT) 43 U/L Total Bilirubin 3.8 MG/DL Sodium Level 139 MEQ/L Potassium Level 4.2 MEQ/L Chloride Level 99 MEQ/L Carbon Dioxide Level 26.8 MEQ/L Anion Gap 13 MEQ/L Estimat Glomerular Filtration Rate 41 ML/MIN Lactic Acid Level 6.8 mmol/L Lipase 86 U/L Ethyl Alcohol Level LESS THAN 3 MG/DL MDM Medical Record Reviewed: Yes Supervised Visit with MARIO: Yes Narrative Course CBC shows no leukocytosis, no anemia, microcytosis, mild thrombocytopenia 127, 000, no left shift. INR is 2.0 Alcohol level is negative Electrolytes are all within normal limits, however decreased GFR of 41 BUN of 19 creatinine 1.35 most likely secondary to hepatorenal syndrome. Lactic acid elevated at 6.8, elevated total bilirubin 3.8, AST of 110 over ALT of 43 consistent with alcoholic type cirrhosis. Normal pancreatic enzymes CT was read by radiologist as cirrhosis with past varicosities at the GE junction as well as within the left hemipelvis, circumferential wall thickening involving the lower thoracic esophagus, large volume ascites, anasarca, prior cholecystectomy. Diagnosis Primary Impression: Hematemesis Qualified Codes: K92.0 - Hematemesis Additional Impression: Lactic acid acidosis Admitting Information Admitting Physician Requests: Juan Olmos MD Jan 10, 2018 02:22
[2018-01-10] MEDS ORDERED: SODIUM CHLORIDE 0.9% FLUSH 10 ML FLUSH IV FLUSH PRN (02:45)
[2018-01-10] MEDS ORDERED: NALOXONE HCL 0.4 MG/ML AMP IV PUSH PRN (02:45)
[2018-01-10] MEDS ORDERED: PHYTONADIONE 5 MG/SWFI 5 ML ORAL SYR PO ONE (03:00)
--- NOTE | 2018-01-10 04:53 | HHI.HP ---
HPI Service [facility] Primary Care Physician [facility] Admission Diagnosis HEMATEMESIS, TENSE ASCITES Diagnoses: Chief Complaint: hematemesis Travel History International Travel<30 Days: No Contact w/Intl Traveler <30 Da: No Traveled to Known Affected Are: No History of Present Illness 57 y/o female with a history of COPD, Cirrhosis, Hep C, lung cancer (no treatment, being worked up by [facility]) presented to the ED with complaints of vomiting blood for the last day. Patient states the night before last she began to vomit blood. 2 weeks ago she had her gall bladder removed and since then she has has swelling of her bilateral lower extremities and abdomen. Patient denies ever having a paracentesis. She complains of abdominal pain, stabbing and cramping, 9/10, ice packs make it better, movement makes it worse with associated nausea. Denies any black or red colored stools. She denies any chest pain. Upon examination patient is tachycardic and hypotensive, denies any sob or fevers. Patient states she is not on medication because the [facility] will not give her the medication. Review of Systems Except as stated in HPI: all other systems reviewed are Neg Past Family Social History Past Medical History COPD Cirrhosis Hep C lung cancer Past Surgical History Cholecystectomy C section Reported Medications Reported Meds & Active Scripts Active Allergies: Coded Allergies: No Known Allergies (Verified Allergy, Unknown, 11/17/17) Active Ordered Medications Current Medications Medications (Trade) Dose Ordered Sig/Shahram Route Start Time Stop Time Status Last Admin (NS Flush) 2 ml UNSCH PRN IVF 01/09/18 21:45 Octreotide Acetate 500 mcg/ Sodium Chloride 500.5 ml @ 50 mls/hr Q10H1M IV 01/09/18 21:43 01/09/18 23:40 Pantoprazole Sodium 80 mg/ Sodium Chloride 100 ml @ 10 mls/hr Q10H IV 01/09/18 21:43 01/09/18 22:59 (NS Flush) 2 ml UNSCH PRN IV FLUSH 01/10/18 02:45 (NS Flush) 2 ml BID IV FLUSH 01/10/18 09:00 (Narcan Inj) 0.4 mg UNSCH PRN IV PUSH 01/10/18 02:45 (Mephyton Liq) 5 mg DAILY PO 01/10/18 09:00 Family History Mom: [facility] Dad: [facility] Social History Tobacco use: 1/2 PPD Alcohol use: Last drink was Dec 13 Physical Exam Vital Signs Vital Signs Date Time Temp Pulse Resp B/P (MAP) Pulse Ox O2 Delivery O2 Flow Rate FiO2 01/10/18 02:00 114 18 104/51 (68) 92 Room Air 01/09/18 21:13 119 22 126/57 (80) 95 Physical Exam GENERAL: This is a well-nourished, well-developed patient, in no apparent distress. SKIN: No rashes, ecchymoses or lesions. Cool and dry. HEAD: Atraumatic. Normocephalic. EYES: Pupils equal round and reactive. Extraocular motions intact. ENT: Nose without bleeding, purulent drainage or septal hematoma. Airway patent. NECK: Trachea midline. No JVD or lymphadenopathy. Supple, nontender, no meningeal signs. CARDIOVASCULAR: Regular rate and rhythm without murmurs, gallops, or rubs. RESPIRATORY: Clear to auscultation. Breath sounds equal bilaterally. No wheezes , rales, or rhonchi. GASTROINTESTINAL: Abdomen is tense, all over tenderness, distended. MUSCULOSKELETAL: Bilateral lower extremity edema +2 pitting. No joint tenderness , effusion, or edema noted. No calf tenderness. NEUROLOGICAL: Awake and alert. Motor and sensory grossly within normal limits. Normal speech. Laboratory Laboratory Tests Test 01/09/18 22:30 White Blood Count 10.7 Red Blood Count 4.12 Hemoglobin 14.4 Hematocrit 42.1 Mean Corpuscular Volume 102.3 Mean Corpuscular Hemoglobin 35.0 Mean Corpuscular Hemoglobin Concent 34.3 Red Cell Distribution Width 15.4 Platelet Count 127 Mean Platelet Volume 8.0 Neutrophils (%) (Auto) 78.7 Lymphocytes (%) (Auto) 14.6 Monocytes (%) (Auto) 6.2 Eosinophils (%) (Auto) 0.1 Basophils (%) (Auto) 0.4 Neutrophils # (Auto) 8.4 Lymphocytes # (Auto) 1.6 Monocytes # (Auto) 0.7 Eosinophils # (Auto) 0.0 Basophils # (Auto) 0.0 CBC Comment DIFF FINAL Differential Comment Hematology Comments Prothrombin Time 20.2 Prothromb Time International Ratio 2.0 Activated Partial Thromboplast Time 36.4 Blood Urea Nitrogen 19 Creatinine 1.35 Random Glucose 87 Total Protein 6.6 Albumin 2.2 Calcium Level 9.1 Alkaline Phosphatase 141 Aspartate Amino Transf (AST/SGOT) 110 Alanine Aminotransferase (ALT/SGPT) 43 Total Bilirubin 3.8 Sodium Level 139 Potassium Level 4.2 Chloride Level 99 Carbon Dioxide Level 26.8 Anion Gap 13 Estimat Glomerular Filtration Rate 41 Lactic Acid Level 6.8 Lipase 86 Ethyl Alcohol Level LESS THAN 3 Result Diagram: 01/09/18222901/09/182229 Imaging Last Impressions Abdomen/Pelvis CT 01/09/182230 Signed Impressions: Service Date/Time: Wednesday, January 10, 2018 00:19 - CONCLUSION: 1. Cirrhosis with varicosities at the GE junction as well as within the left hemipelvis. 2. Circumferential wall thickening involving the lower thoracic esophagus. This could relate to venous congestion given the underlying cirrhotic liver. I cannot exclude an infiltrating mass. 3. Large volume ascites. 4. Anasarca. 5. Prior cholecystectomy. Steve King Jr., MD Abdomen X-Ray 01/09/18 0000 Signed Impressions: Service Date/Time: Tuesday, January 09, 2018 22:06 - CONCLUSION: Nonspecific, nonobstructive bowel gas pattern. Splenomegaly and suspected small ascites. MD Mart Ornelasi VTE Risk Assessment Caprini VTE Risk Assessment: Mod/High Risk (score >= 2) VTE Pharm Contraindication: Active bleeding Caprini Risk Assessment Model Point Value = 1 Point Value = 2 Point Value = 3 Point Value = 5 Age 41-60 Minor surgery BMI > 25 kg/m2 Swollen legs Varicose veins or History of unexplained or recurrent spontaneous Oral contraceptives or hormone replacement Sepsis (< 1 month) Serious lung disease, including pneumonia (< 1 month) Abnormal pulmonary function Acute myocardial infarction Congestive heart failure (< 1 month) History of inflammatory bowel disease Medical patient at bed rest Age 61-74 Arthroscopic surgery Major open surgery (> 45 min) Laparoscopic surgery (> 45 min) Malignancy Confined to bed (> 72 hours) Immobilizing plaster cast Central venous access Age >= 75 History of VTE Family history of VTE Factor V Leiden Prothrombin [id number] Lupus anticoagulant Anticardiolipin antibodies Elevated serum homocysteine Heparin-induced thrombocytopenia Other congenital or acquired thrombophilia Stroke (< 1 month) Elective arthroplasty Hip, pelvis, or leg fracture Acute spinal cord injury (< 1 month) Prophylaxis Regimen Total Risk Factor Score Risk Level Prophylaxis Regimen 0-1 Low Early ambulation 2 Moderate Order ONE of the following: *Sequential Compression Device (SCD) *Heparin 5000 units SQ BID 3-4 Higher Order ONE of the following medications: *Heparin 5000 units SQ TID *Enoxaparin/Lovenox 40 mg SQ daily (WT < 150 kg, CrCl > 30 mL/min) *Enoxaparin/Lovenox 30 mg SQ daily (WT < 150 kg, CrCl > 10-29 mL/min) *Enoxaparin/Lovenox 30 mg SQ BID (WT < 150 kg, CrCl > 30 mL/min) AND/OR *Sequential Compression Device (SCD) 5 or more Highest Order ONE of the following medications: *Heparin 5000 units SQ TID (Preferred with Epidurals) *Enoxaparin/Lovenox 40 mg SQ daily (WT < 150 kg, CrCl > 30 mL/min) *Enoxaparin/Lovenox 30 mg SQ daily (WT < 150 kg, CrCl > 10-29 mL/min) *Enoxaparin/Lovenox 30 mg SQ BID (WT < 150 kg, CrCl > 30 mL/min) AND *Sequential Compression Device (SCD) Assessment and Plan Problem List: (1) Hematemesis ICD Code: K92.0 - Hematemesis Status: Acute (2) Ascites ICD Code: R18.8 - Other ascites Status: Acute (3) Cirrhosis ICD Code: K74.60 - Unspecified cirrhosis of liver Status: Chronic (4) FLACA (acute kidney injury) ICD Code: N17.9 - Acute kidney failure, unspecified Status: Acute (5) Lactic acid acidosis ICD Code: E87.2 - Acidosis Status: Acute Assessment and Plan 57 y/o female with a history of COPD, Cirrhosis, Hep C, lung cancer (no treatment, [facility]) presented to the ED with complaints of vomiting blood for the last day. Hematemesis, suspected related to varices and GI bleed Abdomen CT reviewed and shows Cirrhosis with varicosities at the GE junction as well as within the left hemipelvis. -Monitor H&H -Consult GI for recommendations -Protonix and Octreotide drip ordered -Antiemetics as needed Ascites Abdominal CT reviewed and shows Large volume ascites. -US guided paracentesis Tachycardia and hypotension, 130s upon examination, BP 84/46 -Albumin IV x 1 given -Stat H&H ordered -Place Motley for urinary retentions, this may decrease HR -Patient is not sob, PE is not suspected Acute Kidney Injury, creatine 1.35, baseline .48 -NS 1L given in ED, caution with fluids due to ascites -Trend creatine, renal US if kidney function does not improve Lactic acidosis, lactic 6.8, likely due to ascites, patient does not appear septic, no wbc or fevers -Repeat lactic acid -Cover for SBP as this can not be excluded with IV antibiotics Rocephin and Flagyl -Check UA DVT prophylaxis: SCDs, hold chemical due to hematemesis Discussed Condition With Patient and RN Physician Certification 2 Midnight Certification Type: Admission for Inpatient Services Order for Inpatient Services The services are ordered in accordance with Medicare regulations or non- Medicare payer requirements, as applicable. In the case of services not specified as inpatient-only, they are appropriately provided as inpatient services in accordance with the 2-midnight benchmark. Estimated LOS (days): 3 days is the estimated time the patient will need to remain in the hospital, assuming treatment plan goals are met and no additional complications. Post-Hospital Plan: Home Problem Qualifiers (1) Hematemesis: Qualified Codes: K92.0 - Hematemesis (2) Ascites: Qualified Codes: K70.31 - Alcoholic cirrhosis of liver with ascites Elyssa Whaley Jan 10, 2018 04:53
[2018-01-10] MEDS ORDERED: ALBUMIN 5% INJ 250 ML IV ONE (05:30)
[2018-01-10] MEDS ORDERED: ONDANSETRON HCL 4 MG/2 ML VIAL IV PUSH PRN (05:30)
[2018-01-10 06:12] LABS: HEMATOCRIT 36.1 % (35.0-46.0)
[2018-01-10 06:13] LABS: ALBUMIN 1.9 GM/DL (3.4-5.0); ALT (GPT) 46 U/L (10-53); AST (GOT) 125 U/L (15-37); BICARBONATE 25.9 MEQ/L (21.0-32.0); BLOOD UREA NITROGEN 25 MG/DL (7-18); CALCIUM 8.4 MG/DL (8.5-10.1); CHLORIDE 103 MEQ/L (98-107); CREATININE 1.31 MG/DL (0.50-1.00); GLOMERULAR FILTRATION RATE 42 ML/MIN (>89); GLUCOSE,RANDOM 72 MG/DL (74-106); SODIUM (NA) 139 MEQ/L (136-145)
[2018-01-10 06:14] LABS: HEMOGLOBIN 12.4 GM/DL (11.6-15.3)
[2018-01-10 06:15] LABS: ALKALINE PHOSPHATASE 119 U/L (45-117)
[2018-01-10] MEDS ORDERED: ALBUMIN 25% INJ 50 ML IV ONE (06:15)
[2018-01-10 07:16] LABS: BACTERIA, URINE MOD /hpf; BLOOD, URINE SMALL (NEG); GLUCOSE,URINE NEG (NEG); HYALINE CAST, URINE 32 /lpf (RARE); KETONE, URINE TRACE mg/dL (NEG); MUCUS URINE FEW /lpf (OCC); NITRITE,URINE NEG (NEG); PH, URINE 5.5 (5.0-8.5); SQUAMOUS EPITHELIAL CELL URINE 2 /hpf (0-5); URINE LEUKOCYTE ESTERASE NEG (NEG)
[2018-01-10 07:18] LABS: BILIRUBIN, URINE NEG (NEG); URINE COLOR DARK-BROWN (YELLW/STRAW)
[2018-01-10] MEDS: cefTRIAXone INJ 1,000 MG in SODIUM CHLORIDE 0.9% INJ 100 ML IV SCH (07:30)
[2018-01-10] MEDS: metroNIDAZOLE 500 MG INJ 100 ML IV SCH ×4 (07:30→23:46)
[2018-01-10] MEDS: PANTOPRAZOLE INJ 80 MG in SODIUM CHLORIDE 0.9% INJ 100 ML IV SCH ×3 (07:43→18:00)
[2018-01-10] MEDS: OCTREOTIDE INJ 500 MCG in SODIUM CHLORID 0.9% 500 ML INJ 500 ML IV SCH ×3 (07:44→17:59)
--- NOTE | 2018-01-10 08:38 | PD.CONS ---
HPI History of Present Illness This is a 57 year old female with hx hep C, rectal prolapse, small cell lung ca who presented for vomiting blood that started 2 days ago. The emesis has coffee ground appearance. She c/o diffuse abd pain. Denies blood in stool or black tarry stool. She had her gallbladder removed during an admission in November and has been having abd pain, bloating, abd distention since then. She had an EGD & colonoscopy that same admission with Dr Moy 12/12/17 that found hiatal hernia, portal gastropathy, duodenal and gastric ulcers, duodenitis , diverticulosis, submucosal nodule rectum, suggestive of rectal prolapse. Liver bx 12/13/17 showed active chronic hepatitis is consistent with hepatitis C , increased hepatocyte iron, suggesting hemochromatosis, inclusions in some hepatocytes and Alpha-1 antitrypsin deficiency cannot be excluded. She had a liver workup prior admission in November which showed pos KAROL 1:40 diffuse pattern. [facility] be [facility]. She says she quit drinking but admits drinking occasionally. She is refusing endoscopy. Denies taking blood thinners. (Carmenza Vásquez) PFSH Past Medical History COPD Cirrhosis Hep C lung cancer Past Surgical History Cholecystectomy C section liver bx (Carmenza Vásquez) Coded Allergies: No Known Allergies (Verified Allergy, Unknown, 11/17/17) Family History Mom: Brain Cancer Dad: [place] Social History Tobacco use: 1/2 PPD drinks etoh occasionally denies illicit drug use (Carmenza Vásquez) Review of Systems Constitutional: DENIES: Fever Endocrine: DENIES: Polydipsia Eyes: DENIES: Blurred vision Ears, nose, mouth, throat: DENIES: Hearing loss Respiratory: DENIES: Cough Cardiovascular: DENIES: Chest pain Gastrointestinal: COMPLAINS OF: Abdominal pain, Nausea, Vomiting, Hematemesis, DENIES: Black stools, Bloody stools, Difficulty Swallowing, Odynophagia Genitourinary: DENIES: Hematuria Musculoskeletal: DENIES: Muscle aches Integumentary: DENIES: Jaundice Hematologic/lymphatic: DENIES: Bruising Immunologic/allergic: DENIES: Eczema Neurologic: DENIES: Abnormal gait Psychiatric: COMPLAINS OF: Anxiety (Carmenza Vásquez) GI Exam Vitals I&O Vital Signs Date Time Temp Pulse Resp B/P (MAP) Pulse Ox O2 Delivery O2 Flow Rate FiO2 01/10/18 06:27 110 18 86/51 (63) 91 Room Air 01/10/18 02:00 114 18 104/51 (68) 92 Room Air 01/09/18 21:13 119 22 126/57 (80) 95 I/O 01/09/18 01/09/18 01/09/18 01/10/18 01/10/18 01/10/18 07:00 15:00 23:00 07:00 15:00 23:00 Output Total 100 ml Balance -100 ml Output Emesis 100 ml Imaging Last Impressions Abdomen/Pelvis CT 01/09/181 Signed Impressions: Service Date/Time: Wednesday, January 10, 2018 00:19 - CONCLUSION: 1. Cirrhosis with varicosities at the GE junction as well as within the left hemipelvis. 2. Circumferential wall thickening involving the lower thoracic esophagus. This could relate to venous congestion given the underlying cirrhotic liver. I cannot exclude an infiltrating mass. 3. Large volume ascites. 4. Anasarca. 5. Prior cholecystectomy. Steve King Jr., MD Abdomen X-Ray 01/09/18 0000 Signed Impressions: Service Date/Time: Tuesday, January 09, 2018 22:06 - CONCLUSION: Nonspecific, nonobstructive bowel gas pattern. Splenomegaly and suspected small ascites. Guille Elkins MD Laboratory Test 01/09/18 22:30 01/10/18 05:30 01/10/18 05:38 01/10/18 06:00 White Blood Count 10.7 TH/MM3 Red Blood Count 4.12 MIL/MM3 Hemoglobin 14.4 GM/DL 12.4 GM/DL Hematocrit 42.1 % 36.1 % Mean Corpuscular Volume 102.3 FL Mean Corpuscular Hemoglobin 35.0 PG Mean Corpuscular Hemoglobin Concent 34.3 % Red Cell Distribution Width 15.4 % Platelet Count 127 TH/MM3 Mean Platelet Volume 8.0 FL Neutrophils (%) (Auto) 78.7 % Lymphocytes (%) (Auto) 14.6 % Monocytes (%) (Auto) 6.2 % Eosinophils (%) (Auto) 0.1 % Basophils (%) (Auto) 0.4 % Neutrophils # (Auto) 8.4 TH/MM3 Lymphocytes # (Auto) 1.6 TH/MM3 Monocytes # (Auto) 0.7 TH/MM3 Eosinophils # (Auto) 0.0 TH/MM3 Basophils # (Auto) 0.0 TH/MM3 CBC Comment DIFF FINAL Differential Comment Hematology Comments Prothrombin Time 20.2 SEC Prothromb Time International Ratio 2.0 RATIO Activated Partial Thromboplast Time 36.4 SEC Blood Urea Nitrogen 19 MG/DL 25 MG/DL Creatinine 1.35 MG/DL 1.31 MG/DL Random Glucose 87 MG/DL 72 MG/DL Total Protein 6.6 GM/DL 6.0 GM/DL Albumin 2.2 GM/DL 1.9 GM/DL Calcium Level 9.1 MG/DL 8.4 MG/DL Alkaline Phosphatase 141 U/L 119 U/L Aspartate Amino Transf (AST/SGOT) 110 U/L 125 U/L Alanine Aminotransferase (ALT/SGPT) 43 U/L 46 U/L Total Bilirubin 3.8 MG/DL 4.0 MG/DL Sodium Level 139 MEQ/L 139 MEQ/L Potassium Level 4.2 MEQ/L 4.5 MEQ/L Chloride Level 99 MEQ/L 103 MEQ/L Carbon Dioxide Level 26.8 MEQ/L 25.9 MEQ/L Anion Gap 13 MEQ/L 10 MEQ/L Estimat Glomerular Filtration Rate 41 ML/MIN 42 ML/MIN Lactic Acid Level 6.8 mmol/L 5.9 mmol/L Lipase 86 U/L Ethyl Alcohol Level LESS THAN 3 MG/DL Urine Color DARK-BROWN Urine Turbidity HAZY Urine pH 5.5 Urine Specific Pierce GREATER THAN 1.050 Urine Protein 30 mg/dL Urine Glucose (UA) NEG mg/dL Urine Ketones TRACE mg/dL Urine Occult Blood SMALL Urine Nitrite NEG Urine Bilirubin NEG Urine Urobilinogen 2.0 MG/DL Urine Leukocyte Esterase NEG Urine RBC 3 /hpf Urine WBC 14 /hpf Urine Squamous Epithelial Cells 2 /hpf Urine Bacteria MOD /hpf Urine Hyaline Casts 32 /lpf Urine Mucus FEW /lpf Microscopic Urinalysis Comment CATH-CULTURE IND Date/Time Source Procedure Growth Status 01/10/18 06:00 Urine Catheterized Urine Urine Culture Pending Received Physical Examination HEENT: PERRL; normocephalic; atraumatic; +icterus CHEST: CTA CARDIAC: RRR ABDOMEN: semifirm, tender; bowel sounds are present in all four quadrants. EXTREMITIES: No clubbing, cyanosis,+ BLE edema SKIN: Normal; no rash; + mild jaundice. COMPARATOR OPERATOR: No focal deficits; alert and oriented times three. (Carmenza Vásquez) Assessment and Plan Plan ASSESSMENT - hematemesis - UGIB. EGD & colonoscopy that same admission with Dr Moy that found hiatal hernia, portal gastropathy, duodenal and gastric ulcers, duodenitis, diverticulosis, submucosal nodule rectum, suggestive of rectal prolapse. HH currently WNL pt is refusing endoscopy. - abd pain - could be r/t ulcer and/or ascites - cirrhosis, ascites - 2/2 etoh, hep c. Liver bx 12/13/17 showed active chronic hepatitis is consistent with hepatitis C, increased hepatocyte iron, suggesting hemochromatosis, inclusions in some hepatocytes and Alpha-1 antitrypsin deficiency cannot be excluded. She had a liver workup prior admission in November which showed pos KAROL 1:40 diffuse pattern. do not see a1a in previous workup, will check. still drinks etoh occasionally. CT 01/09/18 --> cirrhosis, GE jxn varices, circumferential wall thickening esophagus could be r/t venous congestion but can't exclude mass, large ascites, anasarca. MELD 22 DF 42 could benefit from steroids if SBP ruled out - coagulopathy - INR 2.0 today, 2/2 cirrhosis PLAN - trental TID - consider steroids - await paracentesis - EGD recommended but pt refused - clear liquids - low sodium when eating, consider fluid restriction - check a1a - hemochromatosis labs - continue protonix - monitor labs - further recs to follow pt seen by myself and Dr Solomon and this note is on his behalf (Carmenza Vásquez) Physician Comments Seen and examined, plan as above. Further recommendations to follow. Thank you for the consult. (Hamzah Solomon MD) Carmenza Vásquez Jan 10, 2018 08:38 Hamzah Solomon MD Jan 10, 2018 12:38
[2018-01-10] MEDS: SODIUM CHLORIDE 0.9% FLUSH 10 ML FLUSH IV FLUSH SCH ×2 (09:00→22:18)
[2018-01-10] MEDS: PHYTONADIONE 5 MG/SWFI 5 ML ORAL SYR PO SCH (09:00)
[2018-01-10] MEDS: PENTOXIFYLLINE 400 MG CONTROLLED RELEASE TAB PO SCH ×2 (14:14→22:18)
[2018-01-10] MEDS ORDERED: LIDOCAINE HCL 1% 20 ML VIAL ONE (14:24)
--- NOTE | 2018-01-10 15:54 | RADRPT ---
EXAM DATE/TIME: 01/10/2018 14:33 [facility] COMPARISON: No previous studies available for comparison. INDICATIONS : Ascites. MEDICAL HISTORY : Head trauma. Cardiac disorders. COPD. Hepatitis C. Colitis. Cirrhosis. Lung cancer. SURGICAL HISTORY : section. ENCOUNTER: Subsequent ACUITY: 1 day PAIN SCORE: 8/10 LOCATION: Right lower quadrant FLUID: Total volume of 5,000 cc of cloudy, yellow fluid was removed. Fluid was sent to lab for ordered studies. Post procedure scanning reveals no hematoma or other complication. TECHNIQUE: 1. Ultrasound guidance for abdominal paracentesis. 2. Paracentesis. The risks, benefits, and alternatives to ultrasound guided paracentesis were explained to the patient in detail including the risk of bleeding and infection. Written and verbal informed consent was obt ained. With the patient on the ultrasound table, ultrasound imaging was used to select the most appropriate approach for paracentesis. Overlying skin was prepped and draped in the usual sterile fashion and wi th a local anesthetic, a dermatotomy was made with an 11 blade scalpel. A 6 [place] [id number] ca theter was introduced into the peritoneal cavity and fluid was collected. The patient tolerated the procedure well and left the ultrasound suite in stable condition. CONCLUSION: Uncomplicated ultrasound guided paracentesis. Andrews Toure MD on January 10, 2018 at 15:52 Board Certified Radiologist. This report was verified electronically.
--- NOTE | 2018-01-10 16:38 | HHI.PR ---
Subjective Remarks Patient admitted today I came to see her to her bedroom, as per nurse to increase pain medicine given. Objective Vital Signs Date Time Temp Pulse Resp B/P (MAP) Pulse Ox O2 Delivery O2 Flow Rate FiO2 01/10/18 16:12 98.4 101 19 88/44 (59) 96 01/10/18 13:00 108 16 96/53 (67) 96 Nasal Cannula 2.00 01/10/18 12:00 98.7 106 22 104/54 (71) 94 Nasal Cannula 2.00 01/10/18 11:00 102 15 111/53 (72) 97 Nasal Cannula 2.00 01/10/18 10:00 110 17 99/53 (68) 95 01/10/18 09:00 98.9 110 17 92/54 (67) 95 Nasal Cannula 2.00 01/10/18 08:00 110 15 94/54 (67) 95 Nasal Cannula 2.00 01/10/18 07:30 114 19 88/51 (63) 94 2.00 01/10/18 06:27 110 18 86/51 (63) 91 Room Air 01/10/18 02:00 114 18 104/51 (68) 92 Room Air 01/09/18 21:13 119 22 126/57 (80) 95 I/O 01/09/18 01/09/18 01/09/18 01/10/18 01/10/18 01/10/18 07:00 15:00 23:00 07:00 15:00 23:00 Output Total 100 ml Balance -100 ml Output Emesis 100 ml Result Diagram: 01/10/18 0530 01/10/18 0530 Imaging Last Impressions Cyst Biopsy Asp-Paracentesis US 01/10/18 0000 Signed Impressions: Service Date/Time: Wednesday, January 10, 2018 14:33 - CONCLUSION: Uncomplicated ultrasound guided paracentesis. Andrews Toure MD Abdomen/Pelvis CT 01/09/18 2231 Signed Impressions: Service Date/Time: Wednesday, January 10, 2018 00:19 - CONCLUSION: 1. Cirrhosis with varicosities at the GE junction as well as within the left hemipelvis. 2. Circumferential wall thickening involving the lower thoracic esophagus. This could relate to venous congestion given the underlying cirrhotic liver. I cannot exclude an infiltrating mass. 3. Large volume ascites. 4. Anasarca. 5. Prior cholecystectomy. Steve King Jr., MD Abdomen X-Ray 01/09/18 0000 Signed Impressions: Service Date/Time: Tuesday, January 09, 2018 22:06 - CONCLUSION: Nonspecific, nonobstructive bowel gas pattern. Splenomegaly and suspected small ascites. Guille Elkins MD Procedures Paracentesis. Other Results Laboratory Tests Test 01/09/18 22:30 01/10/18 05:30 01/10/18 05:38 01/10/18 06:00 White Blood Count 10.7 TH/MM3 Red Blood Count 4.12 MIL/MM3 Mean Corpuscular Volume 102.3 FL Mean Corpuscular Hemoglobin 35.0 PG Mean Corpuscular Hemoglobin Concent 34.3 % Red Cell Distribution Width 15.4 % Platelet Count 127 TH/MM3 Mean Platelet Volume 8.0 FL Neutrophils (%) (Auto) 78.7 % Lymphocytes (%) (Auto) 14.6 % Monocytes (%) (Auto) 6.2 % Eosinophils (%) (Auto) 0.1 % Basophils (%) (Auto) 0.4 % Neutrophils # (Auto) 8.4 TH/MM3 Lymphocytes # (Auto) 1.6 TH/MM3 Monocytes # (Auto) 0.7 TH/MM3 Eosinophils # (Auto) 0.0 TH/MM3 Basophils # (Auto) 0.0 TH/MM3 CBC Comment DIFF FINAL Differential Comment Hematology Comments Prothrombin Time 20.2 SEC Prothromb Time International Ratio 2.0 RATIO Activated Partial Thromboplast Time 36.4 SEC Lipase 86 U/L Ethyl Alcohol Level LESS THAN 3 MG/DL Hemoglobin 12.4 GM/DL Hematocrit 36.1 % Blood Urea Nitrogen 25 MG/DL Creatinine 1.31 MG/DL Random Glucose 72 MG/DL Total Protein 6.0 GM/DL Albumin 1.9 GM/DL Calcium Level 8.4 MG/DL Alkaline Phosphatase 119 U/L Aspartate Amino Transf (AST/SGOT) 125 U/L Alanine Aminotransferase (ALT/SGPT) 46 U/L Total Bilirubin 4.0 MG/DL Sodium Level 139 MEQ/L Potassium Level 4.5 MEQ/L Chloride Level 103 MEQ/L Carbon Dioxide Level 25.9 MEQ/L Anion Gap 10 MEQ/L Estimat Glomerular Filtration Rate 42 ML/MIN Lactic Acid Level 5.9 mmol/L Urine Color DARK-BROWN Urine Turbidity HAZY Urine pH 5.5 Urine Specific [place] GREATER THAN 1.050 Urine Protein 30 mg/dL Urine Glucose (UA) NEG mg/dL Urine Ketones TRACE mg/dL Urine Occult Blood SMALL Urine Nitrite NEG Urine Bilirubin NEG Urine Urobilinogen 2.0 MG/DL Urine Leukocyte Esterase NEG Urine RBC 3 /hpf Urine WBC 14 /hpf Urine Squamous Epithelial Cells 2 /hpf Urine Bacteria MOD /hpf Urine Hyaline Casts 32 /lpf Urine Mucus FEW /lpf Microscopic Urinalysis Comment CATH-CULTURE IND Test 01/10/18 15:10 Peritoneal Fluid Albumin 0.2 G/DL Peritoneal Fluid Glucose 111 MG/DL Objective Remarks GENERAL: This is a well-nourished, well-developed patient, in no apparent distress. SKIN: No rashes, ecchymoses or lesions. Cool and dry. HEAD: Atraumatic. Normocephalic. EYES: Pupils equal round and reactive. Extraocular motions intact. ENT: Nose without bleeding, purulent drainage or septal hematoma. Airway patent. NECK: Trachea midline. No JVD or lymphadenopathy. Supple, nontender, no meningeal signs. CARDIOVASCULAR: Regular rate and rhythm without murmurs, gallops, or rubs. RESPIRATORY: Clear to auscultation. Breath sounds equal bilaterally. No wheezes , rales, or rhonchi. GASTROINTESTINAL: Abdomen is tense, all over tenderness, distended. MUSCULOSKELETAL: Bilateral lower extremity edema +2 pitting. No joint tenderness , effusion, or edema noted. No calf tenderness. NEUROLOGICAL: Awake and alert. Motor and sensory grossly within normal limits. Normal speech. Medications and IVs Current Medications Medications (Trade) Dose Ordered Sig/Shahram Route Start Time Stop Time Status Last Admin (NS Flush) 2 ml UNSCH PRN IVF 01/09/18 21:45 Octreotide Acetate 500 mcg/ Sodium Chloride 500.5 ml @ 50 mls/hr Q10H1M IV 01/09/18 21:43 01/10/18 10:05 Pantoprazole Sodium 80 mg/ Sodium Chloride 100 ml @ 10 mls/hr Q10H IV 01/09/18 21:43 01/10/18 10:05 (NS Flush) 2 ml UNSCH PRN IV FLUSH 01/10/18 02:45 (NS Flush) 2 ml BID IV FLUSH 01/10/18 09:00 (Narcan Inj) 0.4 mg UNSCH PRN IV PUSH 01/10/18 02:45 (Mephyton Liq) 5 mg DAILY PO 01/10/18 09:00 (Zofran Inj) 4 mg Q6H PRN IV PUSH 01/10/18 05:30 Ceftriaxone Sodium 1000 mg/ Sodium Chloride 100 ml @ 200 mls/hr Q24H IV 01/10/18 06:00 01/10/18 07:30 Metronidazole 100 ml @ 100 mls/hr Q6H IV 01/10/18 06:00 01/10/18 11:57 (TRENtal SR) 400 mg Q8HR PO 01/10/18 14:00 01/10/18 14:14 A/P Assessment and Plan (1) Hematemesis ICD Code: K92.0 - Hematemesis Status: Acute (2) Ascites ICD Code: R18.8 - Other ascites Status: Acute (3) Cirrhosis ICD Code: K74.60 - Unspecified cirrhosis of liver Status: Chronic (4) FLACA (acute kidney injury) ICD Code: N17.9 - Acute kidney failure, unspecified Status: Acute (5) Lactic acid acidosis ICD Code: E87.2 - Acidosis Status: Acute 57 y/o female with a history of COPD, Cirrhosis, Hep C, lung cancer (no treatment, [facility]) presented to the ED with complaints of vomiting blood for the last day. Hematemesis, suspected related to varices and GI bleed Abdomen CT reviewed and shows Cirrhosis with varicosities at the GE junction as well as within the left hemipelvis. -Monitor H&H -Consult GI for recommendations -Protonix and Octreotide drip ordered -Antiemetics as needed Ascites Abdominal CT reviewed and shows Large volume ascites. -US guided paracentesis Tachycardia and hypotension, 130s upon examination, BP 84/46 -Albumin IV x 1 given -Stat H&H ordered -Place Motley for urinary retentions, this may decrease HR -Patient is not sob, PE is not suspected Acute Kidney Injury, creatine 1.35, baseline .48 -NS 1L given in ED, caution with fluids due to ascites -Trend creatine, renal US if kidney function does not improve Lactic acidosis, lactic 6.8, likely due to ascites, patient does not appear septic, no wbc or fevers -Repeat lactic acid -Cover for SBP as this can not be excluded with IV antibiotics Rocephin and Flagyl -Check UA DVT prophylaxis: SCDs, hold chemical due to hematemesis Discussed Condition With Patient and nurse. Aldo Sarkar MD Jan 10, 2018 16:38
[2018-01-10 16:46] LABS: TOTAL PROTEIN,PERITONEAL FLUID 0.5 GM/DL
[2018-01-10 16:51] LABS: PERITONEAL LYMPHS 1 %; PERITONEAL MONOS 2 %; PERITONEAL POLYS(SEGS) 97 %
[2018-01-10 16:52] LABS: PERITONEAL RBC 88 /MM3 (0-0)
[2018-01-10] MEDS: THIAMINE INJ 100 MG in SODIUM CHLORIDE 0.9% INJ 100 ML IV SCH (20:40)
[2018-01-10] MEDS: MULTIVITAMIN INJ 10 ML, FOLIC ACID INJ 1 MG in SODIUM CHLORID 0.9% 500 ML INJ 500 ML IV SCH (22:17)
[2018-01-11] VITALS (20 sets, daily range): BP systolic 85–89; BP diastolic 43–54; PULSE 72–88; RESP 12–18; TEMP 97.6–98.4; O2SAT 92–98
[2018-01-11] MEDS: PANTOPRAZOLE INJ 80 MG in SODIUM CHLORIDE 0.9% INJ 100 ML IV SCH ×3 (02:41→21:54)
[2018-01-11] MEDS: OCTREOTIDE INJ 500 MCG in SODIUM CHLORID 0.9% 500 ML INJ 500 ML IV SCH ×2 (04:08→14:37)
[2018-01-11 05:06] LABS: AUTOMATED NEUTROPHIL # 5.1 TH/MM3 (1.8-7.7); BASOPHIL # 0.1 TH/MM3 (0-0.2); BASOPHIL % 0.7 % (0.0-2.0); EOSINOPHIL # 0.1 TH/MM3 (0-0.4); EOSINOPHIL % 1.2 % (0.0-4.0); HEMOGLOBIN 9.3 GM/DL (11.6-15.3); LYMPH % 25.9 % (9.0-44.0); MEAN CELL VOLUME 102.1 FL (80.0-100.0); MEAN CORPUSCULAR HEMOGLOBIN 35.1 PG (27.0-34.0); MEAN CORPUSCULAR HGB CONC 34.4 % (32.0-36.0); MEAN PLATELET VOLUME 7.4 FL (7.0-11.0); MONO % 6.4 % (0.0-8.0); MONOCYTE # 0.5 TH/MM3 (0-0.9); NEUT % 65.8 % (16.0-70.0); PLATELET COUNT 83 TH/MM3 (150-450); RED BLOOD COUNT 2.65 MIL/MM3 (4.00-5.30); RED CELL DISTRIBUTION WIDTH 14.7 % (11.6-17.2); WHITE BLOOD COUNT 7.8 TH/MM3 (4.0-11.0)
[2018-01-11 05:18] LABS: ALBUMIN 1.8 GM/DL (3.4-5.0); ALKALINE PHOSPHATASE 79 U/L (45-117); ALT (GPT) 44 U/L (10-53); AST (GOT) 116 U/L (15-37); BICARBONATE 26.8 MEQ/L (21.0-32.0); BLOOD UREA NITROGEN 31 MG/DL (7-18); CALCIUM 7.5 MG/DL (8.5-10.1); CHLORIDE 105 MEQ/L (98-107); CREATININE 0.94 MG/DL (0.50-1.00); GLOMERULAR FILTRATION RATE 62 ML/MIN (>89); GLUCOSE,RANDOM 102 MG/DL (74-106); SODIUM (NA) 140 MEQ/L (136-145); TOTAL BILIRUBIN ADULT 2.7 MG/DL (0.2-1.0); TOTAL PROTEIN 4.7 GM/DL (6.4-8.2)
[2018-01-11] MEDS: PENTOXIFYLLINE 400 MG CONTROLLED RELEASE TAB PO SCH ×3 (06:11→21:54)
[2018-01-11] MEDS: cefTRIAXone INJ 1,000 MG in SODIUM CHLORIDE 0.9% INJ 100 ML IV SCH (06:11)
[2018-01-11] MEDS: metroNIDAZOLE 500 MG INJ 100 ML IV SCH ×3 (06:12→17:52)
[2018-01-11] MEDS: SODIUM CHLORIDE 0.9% FLUSH 10 ML FLUSH IV FLUSH SCH ×2 (09:00→21:54)
[2018-01-11] MEDS: PHYTONADIONE 5 MG/SWFI 5 ML ORAL SYR PO SCH (09:25)
--- NOTE | 2018-01-11 16:00 | HHI.GIFU ---
Subjective Remarks Pt resting in bed Complaining of abdominal pain and distention States small amount of emesis today, denies hematemesis and coffee ground emesis No BM today Tolerating full liquid diet (Nona Burns) Objective Vitals I&O Vital Signs Date Time Temp Pulse Resp B/P (MAP) Pulse Ox O2 Delivery O2 Flow Rate FiO2 01/11/18 14:00 72 01/11/18 13:00 80 01/11/18 12:00 72 01/11/18 11:00 92 Nasal Cannula 3.00 01/11/18 11:00 73 01/11/18 11:00 98.4 81 14 87/48 (61) 92 01/11/18 10:00 77 01/11/18 09:00 77 01/11/18 08:00 98.1 81 12 85/48 (60) 92 01/11/18 08:00 92 Nasal Cannula 3.00 01/11/18 08:00 77 01/11/18 07:00 81 01/11/18 06:00 77 01/11/18 05:42 16 01/11/18 05:00 79 01/11/18 04:00 84 01/11/18 03:00 82 01/11/18 03:00 97.8 81 86/51 (63) 93 01/11/18 02:00 84 01/11/18 01:00 88 01/11/18 00:00 86 01/10/18 23:00 98.0 90 86/51 (63) 92 01/10/18 23:00 92 Nasal Cannula 2.00 01/10/18 23:00 92 01/10/18 22:00 94 01/10/18 21:00 96 01/10/18 20:00 96 01/10/18 19:00 98 01/10/18 19:00 98.0 95 88/50 (63) 93 01/10/18 18:29 99 01/10/18 17:15 88/44 (59) 91/44 (60) 01/10/18 17:00 98 01/10/18 16:12 98.4 101 19 88/44 (59) 96 I/O 01/10/18 01/10/18 01/10/18 01/11/18 01/11/18 01/11/18 07:00 15:00 23:00 07:00 15:00 23:00 Intake Total 210 ml 2140.2 ml Output Total 200 ml 400 ml Balance 10 ml 1740.2 ml Intake Oral 120 ml 840 ml IV Total 90 ml 1300.2 ml Output Urine Total 200 ml 400 ml # Bowel Movements 0 Laboratory Laboratory Tests Test 01/11/18 03:40 White Blood Count 7.8 Red Blood Count 2.65 Hemoglobin 9.3 Hematocrit 27.0 Mean Corpuscular Volume 102.1 Mean Corpuscular Hemoglobin 35.1 Mean Corpuscular Hemoglobin Concent 34.4 Red Cell Distribution Width 14.7 Platelet Count 83 Mean Platelet Volume 7.4 Neutrophils (%) (Auto) 65.8 Lymphocytes (%) (Auto) 25.9 Monocytes (%) (Auto) 6.4 Eosinophils (%) (Auto) 1.2 Basophils (%) (Auto) 0.7 Neutrophils # (Auto) 5.1 Lymphocytes # (Auto) 2.0 Monocytes # (Auto) 0.5 Eosinophils # (Auto) 0.1 Basophils # (Auto) 0.1 CBC Comment AUTO DIFF Differential Comment AUTO DIFF CONFIRMED Platelet Estimate LOW Platelet Morphology Comment NORMAL Hematology Comments Blood Urea Nitrogen 31 Creatinine 0.94 Random Glucose 102 Total Protein 4.7 Albumin 1.8 Calcium Level 7.5 Alkaline Phosphatase 79 Aspartate Amino Transf (AST/SGOT) 116 Alanine Aminotransferase (ALT/SGPT) 44 Total Bilirubin 2.7 Sodium Level 140 Potassium Level 3.6 Chloride Level 105 Carbon Dioxide Level 26.8 Anion Gap 8 Estimat Glomerular Filtration Rate 62 Date/Time Source Procedure Growth Status 01/10/18 15:10 Fluid Peritoneal Fluid Gram Stain - Final Resulted 01/10/18 15:10 Fluid Peritoneal Fluid Body Fluid Culture - Preliminary NO GROWTH IN 24 HOURS. Resulted 01/10/18 06:00 Urine Catheterized Urine Urine Culture - Preliminary Gram Negative Adarsh Resulted Imaging Last Impressions Cyst Biopsy Asp-Paracentesis US 01/10/18 0000 Signed Impressions: Service Date/Time: Wednesday, January 10, 2018 14:33 - CONCLUSION: Uncomplicated ultrasound guided paracentesis. Andrews Toure MD Abdomen/Pelvis CT 01/09/18 2231 Signed Impressions: Service Date/Time: Wednesday, January 10, 2018 00:19 - CONCLUSION: 1. Cirrhosis with varicosities at the GE junction as well as within the left hemipelvis. 2. Circumferential wall thickening involving the lower thoracic esophagus. This could relate to venous congestion given the underlying cirrhotic liver. I cannot exclude an infiltrating mass. 3. Large volume ascites. 4. Anasarca. 5. Prior cholecystectomy. Steve King Jr., MD Abdomen X-Ray 01/09/18 0000 Signed Impressions: Service Date/Time: Tuesday, January 09, 2018 22:06 - CONCLUSION: Nonspecific, nonobstructive bowel gas pattern. Splenomegaly and suspected small ascites. Guille Elkins MD Physical Exam HEENT: Normocephalic; atraumatic; (+) icterus CHEST: Even/unlabored CARDIAC: RRR ABDOMEN: Distended, soft, diffuse TTP, bowel sounds active EXTREMITIES: No clubbing, cyanosis, or edema. SKIN: (+) jaundice. STRATEGY CONSULTANT: No focal deficits; alert and oriented times three. (Nona Burns) Assessment and Plan Plan ASSESSMENT - hematemesis - UGIB. EGD & colonoscopy that same admission with Dr Moy that found hiatal hernia, portal gastropathy, duodenal and gastric ulcers, duodenitis, diverticulosis, submucosal nodule rectum, suggestive of rectal prolapse. HH currently WNL pt is refusing endoscopy. - abd pain - could be r/t ulcer and/or ascites - cirrhosis, ascites - 2/2 etoh, hep c. Liver bx 12/13/17 showed active chronic hepatitis is consistent with hepatitis C, increased hepatocyte iron, suggesting hemochromatosis, inclusions in some hepatocytes and Alpha-1 antitrypsin deficiency cannot be excluded. She had a liver workup prior admission in November which showed pos KAROL 1:40 diffuse pattern. do not see a1a in previous workup, will check. still drinks etoh occasionally. CT 01/09/18 --> cirrhosis, GE jxn varices, circumferential wall thickening esophagus could be r/t venous congestion but can't exclude mass, large ascites, anasarca. MELD 22 DF 42 could benefit from steroids if SBP ruled out - coagulopathy - INR 2.0 today, 2/2 cirrhosis (01/11) --> Pt with continued complaints of abdominal pain and distention. S/P paracentesis (01/10) --> 5,000 cc of cloudy, yellow fluid removed. SAAG 1.7. Peritoneal WBC-6, 251. Culture pending. On Rocephin. LFTs trending down. currently AST-116 ALT-44 T bili-2.7 Alk phos-79 Alpha-1 antitrypsin pending. HFE pending. Drop in H/H noted- hgb 12.4 yesterday 9.3 today. Pt still refusing EGD. No obvious continuation of GIB. PLAN - HFE pending - alpha-1 antitrypsin pending - Monitor LFTs - Pentoxifylline - Vit K - Rocephin - Monitor (INR, CBC, CMP) - Octreotide gtt - Protonix gtt - Ammonia level - Lactulose - Further recommendations to follow based on findings of above Pt has been seen and examined by myself and Dr. Solomon and this note is written on his behalf (Nona Burns) Physician Comments Agree with above assessment and plan. Will follow up with you. (Hamzah Solomon MD) Nona Burns Jan 11, 2018 16:00 Hamzah Solomon MD Jan 11, 2018 16:03
--- NOTE | 2018-01-11 16:19 | HHI.PR ---
Subjective Remarks This is a pleasant 57 y/o Female admitted today she has with COPD, Cirrhosis, Hepatitis C, Lung Cancer, who came to ER with Hematemesis, swelling on bilateral legs and abdomen, abdominal pain, tachycardic and Hypotensive on admission, Tobacco dependence, seen by GI specialist recently had admission with the same complaint, had EGD and Colonoscopy on 12/12/17, by Doctor Chinmay, found hiatal hernia, portal gastropathy, duodenal and gastric ulcers, duodenitis, diverticulosis, submucosal nodule rectum, suggestive of rectal prolapse, had Liver Biopsy showed active chronic hepatitis is consistent with Hepatitis C, cirrhosis secondary to ETOH, increased Hepatocyte Iron suggesting Hemochromatosis, CT 01/09/18 --> cirrhosis, GE jxn varices, circumferential wall thickening esophagus could be r/t venous congestion but can't exclude mass, large ascites, anasarca. MELD 22 DF 42 could benefit from steroids if SBP ruled out coagulopathy - INR 2.0 today, 2/ cirrhosis, recommended Trental TID, Awaiting Paracentesis, agree with Glucocorticoids her Maddrey discriminating score is 42 was started on Pentoxifylline instead of Prednisolone by GI specialist. 01/10: seen in her bedroom in the presence of nurse Tanesha, no new issues , no nausea, vomit or diarrhea, may need Steroids. Objective Vital Signs Date Time Temp Pulse Resp B/P (MAP) Pulse Ox O2 Delivery O2 Flow Rate FiO2 01/11/18 16:00 75 01/11/18 15:00 93 Nasal Cannula 4.00 01/11/18 15:00 97.9 76 14 89/54 (66) 93 01/11/18 15:00 74 01/11/18 14:00 72 01/11/18 13:00 80 01/11/18 12:00 72 01/11/18 11:00 92 Nasal Cannula 3.00 01/11/18 11:00 73 01/11/18 11:00 98.4 81 14 87/48 (61) 92 01/11/18 10:00 77 01/11/18 09:00 77 01/11/18 08:00 98.1 81 12 85/48 (60) 92 01/11/18 08:00 92 Nasal Cannula 3.00 01/11/18 08:00 77 01/11/18 07:00 81 3/15/18 06:00 77 01/11/18 05:42 16 01/11/18 05:00 79 01/11/18 04:00 84 01/11/18 03:00 82 01/11/18 03:00 97.8 81 86/51 (63) 93 01/11/18 02:00 84 01/11/18 01:00 88 01/11/18 00:00 86 01/10/18 23:00 98.0 90 86/51 (63) 92 01/10/18 23:00 92 Nasal Cannula 2.00 01/10/18 23:00 92 01/10/18 22:00 94 01/10/18 21:00 96 01/10/18 20:00 96 01/10/18 19:00 98 01/10/18 19:00 98.0 95 88/50 (63) 93 01/10/18 18:29 99 01/10/18 17:15 88/44 (59) 91/44 (60) 01/10/18 17:00 98 I/O 01/10/18 01/10/18 01/10/18 01/11/18 01/11/18 01/11/18 07:00 15:00 23:00 07:00 15:00 23:00 Intake Total 210 ml 2140.2 ml Output Total 200 ml 400 ml Balance 10 ml 1740.2 ml Intake Oral 120 ml 840 ml IV Total 90 ml 1300.2 ml Output Urine Total 200 ml 400 ml # Bowel Movements 0 Result Diagram: 01/11/18 0340 01/11/18 0340 Imaging Last Impressions Cyst Biopsy Asp-Paracentesis US 01/10/18 0000 Signed Impressions: Service Date/Time: Wednesday, January 10, 2018 14:33 - CONCLUSION: Uncomplicated ultrasound guided paracentesis. Andrews Toure MD Abdomen/Pelvis CT 01/09/18 2231 Signed Impressions: Service Date/Time: Wednesday, January 10, 2018 00:19 - CONCLUSION: 1. Cirrhosis with varicosities at the GE junction as well as within the left hemipelvis. 2. Circumferential wall thickening involving the lower thoracic esophagus. This could relate to venous congestion given the underlying cirrhotic liver. I cannot exclude an infiltrating mass. 3. Large volume ascites. 4. Anasarca. 5. Prior cholecystectomy. Steve King Jr., MD Abdomen X-Ray 01/09/18 0000 Signed Impressions: Service Date/Time: Tuesday, January 09, 2018 22:06 - CONCLUSION: Nonspecific, nonobstructive bowel gas pattern. Splenomegaly and suspected small ascites. Guille Elkins MD Procedures Paracentesis. Other Results Laboratory Tests Test 01/09/18 22:30 01/10/18 05:38 01/10/18 06:00 01/10/18 15:10 Prothrombin Time 20.2 SEC Prothromb Time International Ratio 2.0 RATIO Activated Partial Thromboplast Time 36.4 SEC Lipase 86 U/L Ethyl Alcohol Level LESS THAN 3 MG/DL Lactic Acid Level 5.9 mmol/L Urine Color DARK-BROWN Urine Turbidity HAZY Urine pH 5.5 Urine Specific [place] GREATER THAN 1.050 Urine Protein 30 mg/dL Urine Glucose (UA) NEG mg/dL Urine Ketones TRACE mg/dL Urine Occult Blood SMALL Urine Nitrite NEG Urine Bilirubin NEG Urine Urobilinogen 2.0 MG/DL Urine Leukocyte Esterase NEG Urine RBC 3 /hpf Urine WBC 14 /hpf Urine Squamous Epithelial Cells 2 /hpf Urine Bacteria MOD /hpf Urine Hyaline Casts 32 /lpf Urine Mucus FEW /lpf Microscopic Urinalysis Comment CATH-CULTURE IND Peritoneal Fluid WBC 6251 /MM3 Peritoneal Fluid RBC 88 /MM3 Peritoneal Fluid Neutrophils 97 % Peritoneal Fluid Lymphocytes 1 % Peritoneal Fluid Monocytes 2 % Peritoneal Fluid Total Protein 0.5 GM/DL Peritoneal Fluid Albumin 0.2 G/DL Peritoneal Fluid LDH 46 U/L Peritoneal Fluid Glucose 111 MG/DL Test 01/11/18 03:40 White Blood Count 7.8 TH/MM3 Red Blood Count 2.65 MIL/MM3 Hemoglobin 9.3 GM/DL Hematocrit 27.0 % Mean Corpuscular Volume 102.1 FL Mean Corpuscular Hemoglobin 35.1 PG Mean Corpuscular Hemoglobin Concent 34.4 % Red Cell Distribution Width 14.7 % Platelet Count 83 TH/MM3 Mean Platelet Volume 7.4 FL Neutrophils (%) (Auto) 65.8 % Lymphocytes (%) (Auto) 25.9 % Monocytes (%) (Auto) 6.4 % Eosinophils (%) (Auto) 1.2 % Basophils (%) (Auto) 0.7 % Neutrophils # (Auto) 5.1 TH/MM3 Lymphocytes # (Auto) 2.0 TH/MM3 Monocytes # (Auto) 0.5 TH/MM3 Eosinophils # (Auto) 0.1 TH/MM3 Basophils # (Auto) 0.1 TH/MM3 CBC Comment AUTO DIFF Differential Comment AUTO DIFF CONFIRMED Platelet Estimate LOW Platelet Morphology Comment NORMAL Hematology Comments Blood Urea Nitrogen 31 MG/DL Creatinine 0.94 MG/DL Random Glucose 102 MG/DL Total Protein 4.7 GM/DL Albumin 1.8 GM/DL Calcium Level 7.5 MG/DL Alkaline Phosphatase 79 U/L Aspartate Amino Transf (AST/SGOT) 116 U/L Alanine Aminotransferase (ALT/SGPT) 44 U/L Total Bilirubin 2.7 MG/DL Sodium Level 140 MEQ/L Potassium Level 3.6 MEQ/L Chloride Level 105 MEQ/L Carbon Dioxide Level 26.8 MEQ/L Anion Gap 8 MEQ/L Estimat Glomerular Filtration Rate 62 ML/MIN Objective Remarks GENERAL: Well-developed patient, in no apparent distress. SKIN: No rashes, ecchymoses or lesions. Cool and dry. HEAD: Atraumatic. Normocephalic. EYES: Pupils equal round and reactive. Extraocular motions intact. ENT: Nose without bleeding, purulent drainage or septal hematoma. Airway patent. NECK: Trachea midline. No JVD or lymphadenopathy. Supple, nontender, no meningeal signs. CARDIOVASCULAR: Regular rate and rhythm without murmurs, gallops, or rubs. RESPIRATORY: Clear to auscultation. Breath sounds equal bilaterally. No wheezes , rales, or rhonchi. GASTROINTESTINAL: Abdomen is tense, all over tenderness, distended. MUSCULOSKELETAL: Bilateral lower extremity edema +2 pitting. No joint tenderness , effusion, or edema noted. No calf tenderness. NEUROLOGICAL: Awake and alert. Motor and sensory grossly within normal limits. Normal speech. Medications and IVs Current Medications Medications (Trade) Dose Ordered Sig/Shahram Route Start Time Stop Time Status Last Admin Octreotide Acetate 500 mcg/ Sodium Chloride 500.5 ml @ 50 mls/hr Q10H1M IV 01/09/18 21:43 01/11/18 14:37 Pantoprazole Sodium 80 mg/ Sodium Chloride 100 ml @ 10 mls/hr Q10H IV 01/09/18 21:43 01/11/18 14:36 (NS Flush) 2 ml UNSCH PRN IV FLUSH 01/10/18 02:45 (NS Flush) 2 ml BID IV FLUSH 01/10/18 09:00 01/10/18 22:18 (Narcan Inj) 0.4 mg UNSCH PRN IV PUSH 01/10/18 02:45 (Mephyton Liq) 5 mg DAILY PO 01/10/18 09:00 01/11/18 09:25 (Zofran Inj) 4 mg Q6H PRN IV PUSH 01/10/18 05:30 Ceftriaxone Sodium 1000 mg/ Sodium Chloride 100 ml @ 200 mls/hr Q24H IV 01/10/18 06:00 01/11/18 06:11 Metronidazole 100 ml @ 100 mls/hr Q6H IV 01/10/18 06:00 01/11/18 10:50 (TRENtal SR) 400 mg Q8HR PO 01/10/18 14:00 01/11/18 14:37 (Roxicodone) 5 mg Q6H PRN PO 01/10/18 17:30 01/11/18 12:18 Multivitamins 10 ml/Folic Acid 1 mg/Sodium Chloride 510.2 ml @ 125 mls/hr Q24H IV 01/10/18 20:00 01/15/18 19:59 01/10/18 22:17 Thiamine HCl 100 mg/Sodium Chloride 101 ml @ 100 mls/hr Q24H IV 01/10/18 20:00 01/13/18 19:59 01/10/18 20:40 (Lactulose Liq) 30 ml BID PO 01/11/18 21:00 UNV A/P Assessment and Plan (1) Hematemesis ICD Code: K92.0 - Hematemesis Status: Acute (2) Ascites ICD Code: R18.8 - Other ascites Status: Acute (3) Cirrhosis ICD Code: K74.60 - Unspecified cirrhosis of liver Status: Chronic (4) FLACA (acute kidney injury) ICD Code: N17.9 - Acute kidney failure, unspecified Status: Acute (5) Lactic acid acidosis ICD Code: E87.2 - Acidosis Status: Acute 57 y/o female with a history of COPD, Cirrhosis, Hep C, lung cancer (no treatment, being worked [facility]) presented to the ED with complaints of vomiting blood for the last day. Hematemesis, suspected related to varices and GI bleed Abdomen CT reviewed and shows Cirrhosis with varicosities at the GE junction as well as within the left hemipelvis. -Monitor H&H -GI specialist following. -Protonix and Octreotide drip ordered -Antiemetics as needed, Pentoxifylline, may need Steroids. Spontaneous Bacterial Peritonitis started on Ceftriaxone and Flagyl. hepatitis C by history Lung cancer by history COPD on Bronchodilator, Mucolytic and incentive spirometry. Alcoholic hepatitis on [facility] protocol Ascites Abdominal CT reviewed and shows Large volume ascites. -US guided paracentesis showed SBP Tachycardia and hypotension, 130s upon examination, BP 84/46 -Albumin IV x 1 given -Stat H&H ordered -Place Motley for urinary retentions, this may decrease HR -Patient is not sob, PE is not suspected Acute Kidney Injury, creatine 1.35, baseline .48 -NS 1L given in ED, caution with fluids due to ascites -Trend creatine, renal US if kidney function does not improve Lactic acidosis, lactic 6.8, likely due to ascites, patient does not appear septic, no wbc or fevers -improving on actual management. increased IV fluids. Hypokalemia replaced and following. DVT prophylaxis: SCDs, hold chemical due to hematemesis Discussed Condition With Patient and nurse. Discharge Planning once cleared by GI specialist. Aldo Sarkar MD Jan 11, 2018 16:19
[2018-01-11] MEDS: SODIUM CHLOR 0.9% 1000 ML INJ 1,000 ML IV SCH (17:39)
[2018-01-11 18:22] LABS: INTERNATIONAL NORMALIZED RATIO 2.1 RATIO; PROTHROMBIN TIME - PATIENT 21.4 SEC (9.8-11.6)
[2018-01-11] MEDS: LACTULOSE SYRUP 20 GM/30 ML CUP PO SCH (21:54)
[2018-01-11] MEDS: MULTIVITAMIN INJ 10 ML, FOLIC ACID INJ 1 MG in SODIUM CHLORID 0.9% 500 ML INJ 500 ML IV SCH (21:54)
[2018-01-11] MEDS: THIAMINE INJ 100 MG in SODIUM CHLORIDE 0.9% INJ 100 ML IV SCH (21:54)
[2018-01-12] VITALS (18 sets, daily range): BP systolic 85–109; BP diastolic 41–69; PULSE 68–88; RESP 16–24; TEMP 97.2–98.3; O2SAT 92–98
[2018-01-12] MEDS: metroNIDAZOLE 500 MG INJ 100 ML IV SCH ×4 (00:21→18:22)
[2018-01-12] MEDS: OCTREOTIDE INJ 500 MCG in SODIUM CHLORID 0.9% 500 ML INJ 500 ML IV SCH ×3 (00:35→22:15)
[2018-01-12] MEDS: SODIUM CHLOR 0.9% 1000 ML INJ 1,000 ML IV SCH ×2 (04:25→06:05)
[2018-01-12] MEDS: cefTRIAXone INJ 1,000 MG in SODIUM CHLORIDE 0.9% INJ 100 ML IV SCH (06:05)
[2018-01-12] MEDS: PENTOXIFYLLINE 400 MG CONTROLLED RELEASE TAB PO SCH ×3 (06:06→22:31)
[2018-01-12 08:55] LABS: AUTOMATED NEUTROPHIL # 3.7 TH/MM3 (1.8-7.7); BASOPHIL % 0.9 % (0.0-2.0); EOSINOPHIL % 0.7 % (0.0-4.0); HEMOGLOBIN 11.1 GM/DL (11.6-15.3); LYMPH % 19.4 % (9.0-44.0); MEAN CELL VOLUME 109.1 FL (80.0-100.0); MEAN CORPUSCULAR HEMOGLOBIN 39.2 PG (27.0-34.0); MEAN CORPUSCULAR HGB CONC 35.9 % (32.0-36.0); MEAN PLATELET VOLUME 7.4 FL (7.0-11.0); MONO % 5.6 % (0.0-8.0); MONOCYTE # 0.3 TH/MM3 (0-0.9); NEUT % 73.4 % (16.0-70.0); PLATELET COUNT 79 TH/MM3 (150-450); RED BLOOD COUNT 2.84 MIL/MM3 (4.00-5.30)
[2018-01-12] MEDS: SODIUM CHLORIDE 0.9% FLUSH 10 ML FLUSH IV FLUSH SCH ×2 (09:00→22:36)
[2018-01-12] MEDS: PHYTONADIONE 5 MG/SWFI 5 ML ORAL SYR PO SCH (09:00)
[2018-01-12] MEDS: LACTULOSE SYRUP 20 GM/30 ML CUP PO SCH ×2 (09:00→22:31)
--- NOTE | 2018-01-12 09:09 | HHI.PR ---
Subjective Remarks This is a pleasant 57 y/o Female admitted today she has with COPD, Cirrhosis, Hepatitis C, Lung Cancer, who came to ER with Hematemesis, swelling on bilateral legs and abdomen, abdominal pain, tachycardic and Hypotensive on admission, Tobacco dependence, seen by GI specialist recently had admission with the same complaint, had EGD and Colonoscopy on 12/12/17, by Doctor Chinmay, found hiatal hernia, portal gastropathy, duodenal and gastric ulcers, duodenitis, diverticulosis, submucosal nodule rectum, suggestive of rectal prolapse, had Liver Biopsy showed active chronic hepatitis is consistent with Hepatitis C, cirrhosis secondary to ETOH, increased Hepatocyte Iron suggesting Hemochromatosis, CT 01/09/18 --> cirrhosis, GE jxn varices, circumferential wall thickening esophagus could be r/t venous congestion but can't exclude mass, large ascites, anasarca. MELD 22 DF 42 could benefit from steroids if SBP ruled out coagulopathy - INR 2.0 today, 2/ cirrhosis, recommended Trental TID, Awaiting Paracentesis, agree with Glucocorticoids her Maddrey discriminating score is 42 was started on Pentoxifylline instead of Prednisolone by GI specialist. 01/12: Seen in her bedroom, patient refusing endoscopy, with SBP on Ceftriaxone, LFTs trending down, no new recommendations by GI specialist, no nausea, vomit or diarrhea. Objective Vital Signs Date Time Temp Pulse Resp B/P (MAP) Pulse Ox O2 Delivery O2 Flow Rate FiO2 01/12/18 04:00 68 01/12/18 04:00 98.0 70 18 85/41 (56) 96 01/12/18 04:00 Nasal Cannula 4.00 01/12/18 00:00 Nasal Cannula 4.00 01/12/18 00:00 98.3 77 18 88/45 (59) 92 01/12/18 00:00 75 01/11/18 20:00 97.6 79 18 85/43 (57) 98 01/11/18 20:00 Nasal Cannula 4.00 01/11/18 20:00 77 01/11/18 18:48 20 01/11/18 18:00 74 01/11/18 17:00 75 01/11/18 16:00 75 01/11/18 15:00 93 Nasal Cannula 4.00 01/11/18 15:00 97.9 76 14 89/54 (66) 93 01/11/18 15:00 74 01/11/18 14:00 72 01/11/18 13:00 80 01/11/18 12:00 72 01/11/18 11:00 92 Nasal Cannula 3.00 01/11/18 11:00 73 01/11/18 11:00 98.4 81 14 87/48 (61) 92 01/11/18 10:00 77 I/O 01/11/18 01/11/18 01/11/18 01/12/18 01/12/18 01/12/18 07:00 15:00 23:00 07:00 15:00 23:00 Intake Total 2140.2 ml 100 ml 800 ml 2888.7 ml Output Total 400 ml 425 ml 425 ml Balance 1740.2 ml 100 ml 375 ml 2463.7 ml Intake Oral 840 ml 600 ml 480 ml IV Total 1300.2 ml 100 ml 200 ml 2408.7 ml Output Urine Total 400 ml 425 ml 425 ml # Bowel Movements 3 Result Diagram: 01/11/18 0340 01/11/18 0340 Imaging Last Impressions Cyst Biopsy Asp-Paracentesis US 01/10/18 0000 Signed Impressions: Service Date/Time: Wednesday, January 10, 2018 14:33 - CONCLUSION: Uncomplicated ultrasound guided paracentesis. Andrews Toure MD Abdomen/Pelvis CT 01/09/18 2231 Signed Impressions: Service Date/Time: Wednesday, January 10, 2018 00:19 - CONCLUSION: 1. Cirrhosis with varicosities at the GE junction as well as within the left hemipelvis. 2. Circumferential wall thickening involving the lower thoracic esophagus. This could relate to venous congestion given the underlying cirrhotic liver. I cannot exclude an infiltrating mass. 3. Large volume ascites. 4. Anasarca. 5. Prior cholecystectomy. Steve King Jr., MD Abdomen X-Ray 01/09/18 0000 Signed Impressions: Service Date/Time: Tuesday, January 09, 2018 22:06 - CONCLUSION: Nonspecific, nonobstructive bowel gas pattern. Splenomegaly and suspected small ascites. Guille Elkins MD Procedures Paracentesis. Other Results Laboratory Tests Test 01/09/18 22:30 01/10/18 05:38 01/10/18 06:00 01/10/18 15:10 Activated Partial Thromboplast Time 36.4 SEC Lipase 86 U/L Ethyl Alcohol Level LESS THAN 3 MG/DL Lactic Acid Level 5.9 mmol/L Urine Color DARK-BROWN Urine Turbidity HAZY Urine pH 5.5 Urine Specific [place] GREATER THAN 1.050 Urine Protein 30 mg/dL Urine Glucose (UA) NEG mg/dL Urine Ketones TRACE mg/dL Urine Occult Blood SMALL Urine Nitrite NEG Urine Bilirubin NEG Urine Urobilinogen 2.0 MG/DL Urine Leukocyte Esterase NEG Urine RBC 3 /hpf Urine WBC 14 /hpf Urine Squamous Epithelial Cells 2 /hpf Urine Bacteria MOD /hpf Urine Hyaline Casts 32 /lpf Urine Mucus FEW /lpf Microscopic Urinalysis Comment CATH-CULTURE IND Peritoneal Fluid WBC 6251 /MM3 Peritoneal Fluid RBC 88 /MM3 Peritoneal Fluid Neutrophils 97 % Peritoneal Fluid Lymphocytes 1 % Peritoneal Fluid Monocytes 2 % Peritoneal Fluid Total Protein 0.5 GM/DL Peritoneal Fluid Albumin 0.2 G/DL Peritoneal Fluid LDH 46 U/L Peritoneal Fluid Glucose 111 MG/DL Test 01/11/18 03:40 01/11/18 17:39 01/11/18 17:59 01/12/18 08:40 Mean Corpuscular Volume 102.1 FL Mean Corpuscular Hemoglobin 35.1 PG Mean Corpuscular Hemoglobin Concent 34.4 % Red Cell Distribution Width 14.7 % Mean Platelet Volume 7.4 FL Neutrophils (%) (Auto) 65.8 % Lymphocytes (%) (Auto) 25.9 % Monocytes (%) (Auto) 6.4 % Eosinophils (%) (Auto) 1.2 % Basophils (%) (Auto) 0.7 % Neutrophils # (Auto) 5.1 TH/MM3 Lymphocytes # (Auto) 2.0 TH/MM3 Monocytes # (Auto) 0.5 TH/MM3 Eosinophils # (Auto) 0.1 TH/MM3 Basophils # (Auto) 0.1 TH/MM3 CBC Comment AUTO DIFF Platelet Estimate LOW Platelet Morphology Comment NORMAL Hematology Comments Estimat Glomerular Filtration Rate 62 ML/MIN Ammonia 43 MCMOL/L Prothrombin Time 21.4 SEC Prothromb Time International Ratio 2.1 RATIO Objective Remarks GENERAL: Well-developed patient, in no apparent distress. SKIN: No rashes, ecchymoses or lesions. Cool and dry. HEAD: Atraumatic. Normocephalic. EYES: Pupils equal round and reactive. Extraocular motions intact. ENT: Nose without bleeding, purulent drainage or septal hematoma. NECK: Trachea midline. No JVD or lymphadenopathy. Supple, nontender, no meningeal signs. CARDIOVASCULAR: Regular rate and rhythm without murmurs, gallops, or rubs. RESPIRATORY: Clear to auscultation. Breath sounds equal bilaterally. GASTROINTESTINAL: Abdomen is tense, all over tenderness, distended. MUSCULOSKELETAL: Bilateral lower extremity edema +2 pitting. NEUROLOGICAL: Awake and alert. Motor and sensory grossly within normal limits. Medications and IVs Current Medications Medications (Trade) Dose Ordered Sig/Shahram Route Start Time Stop Time Status Last Admin Octreotide Acetate 500 mcg/ Sodium Chloride 500.5 ml @ 50 mls/hr Q10H1M IV 01/09/18 21:43 01/12/18 00:35 Pantoprazole Sodium 80 mg/ Sodium Chloride 100 ml @ 10 mls/hr Q10H IV 01/09/18 21:43 01/11/18 21:54 (NS Flush) 2 ml UNSCH PRN IV FLUSH 01/10/18 02:45 (NS Flush) 2 ml BID IV FLUSH 01/10/18 09:00 01/11/18 21:54 (Narcan Inj) 0.4 mg UNSCH PRN IV PUSH 01/10/18 02:45 (Mephyton Liq) 5 mg DAILY PO 01/10/18 09:00 01/11/18 09:25 (Zofran Inj) 4 mg Q6H PRN IV PUSH 01/10/18 05:30 Ceftriaxone Sodium 1000 mg/ Sodium Chloride 100 ml @ 200 mls/hr Q24H IV 01/10/18 06:00 01/12/18 06:05 Metronidazole 100 ml @ 100 mls/hr Q6H IV 01/10/18 06:00 01/12/18 06:05 (TRENtal SR) 400 mg Q8HR PO 01/10/18 14:00 01/12/18 06:06 (Roxicodone) 5 mg Q6H PRN PO 01/10/18 17:30 01/12/18 06:06 Multivitamins 10 ml/Folic Acid 1 mg/Sodium Chloride 510.2 ml @ 125 mls/hr Q24H IV 01/10/18 20:00 01/15/18 19:59 01/11/18 21:54 Thiamine HCl 100 mg/Sodium Chloride 101 ml @ 100 mls/hr Q24H IV 01/10/18 20:00 01/13/18 19:59 01/11/18 21:54 (Lactulose Liq) 30 ml BID PO 01/11/18 21:00 01/11/18 21:54 Sodium Chloride 1,000 ml @ 84 mls/hr [id number] IV 01/11/18 16:30 01/12/18 06:05 A/P Assessment and Plan (1) Hematemesis ICD Code: K92.0 - Hematemesis Status: Acute (2) Ascites ICD Code: R18.8 - Other ascites Status: Acute (3) Cirrhosis ICD Code: K74.60 - Unspecified cirrhosis of liver Status: Chronic (4) FLACA (acute kidney injury) ICD Code: N17.9 - Acute kidney failure, unspecified Status: Acute (5) Lactic acid acidosis ICD Code: E87.2 - Acidosis Status: Acute 57 y/o female with a history of COPD, Cirrhosis, Hep C, lung cancer (no treatment, [facility]) presented to the ED with complaints of vomiting blood for the last day. Hematemesis, suspected related to varices and GI bleed Abdomen CT reviewed and shows Cirrhosis with varicosities at the GE junction as well as within the left hemipelvis. -Monitor H&H -GI specialist following. -Protonix and Octreotide drip ordered -Antiemetics as needed, Pentoxifylline, may need Steroids. refused EGD. Spontaneous Bacterial Peritonitis started on Ceftriaxone and Flagyl. hepatitis C by history Lung cancer by history COPD on Bronchodilator, Mucolytic and incentive spirometry. Alcoholic hepatitis on CIWA protocol Ascites Abdominal CT reviewed and shows Large volume ascites. -US guided paracentesis showed SBP Acute Kidney Injury, Improved. Lactic acidosis, lactic 6.8, likely due to ascites, patient does not appear septic, no wbc or fevers -improving on actual management. increased IV fluids. Electrolyte derangement Potassium 3.1 giving 40 meq of potassium chloride, magnesium 1.6 giving 2 grams of Magnesium Sulfate, Phosphorus 1.4 giving 21 mmol of potassium phosphate and following DVT prophylaxis: SCDs, hold chemical due to hematemesis Discussed Condition With Patient and nurse. Discharge Planning once cleared by GI specialist. Aldo Sarkar MD Jan 12, 2018 09:09
[2018-01-12] MEDS: PANTOPRAZOLE INJ 80 MG in SODIUM CHLORIDE 0.9% INJ 100 ML IV SCH ×2 (09:30→18:54)
[2018-01-12 09:45] LABS: ALBUMIN 1.8 GM/DL (3.4-5.0); ALKALINE PHOSPHATASE 93 U/L (45-117); ALT (GPT) 37 U/L (10-53); AST (GOT) 84 U/L (15-37); BLOOD UREA NITROGEN 18 MG/DL (7-18); CALCIUM 8.2 MG/DL (8.5-10.1); CHLORIDE 108 MEQ/L (98-107); CREATININE 0.48 MG/DL (0.50-1.00); GLOMERULAR FILTRATION RATE 134 ML/MIN (>89); GLUCOSE,RANDOM 101 MG/DL (74-106); MAGNESIUM 1.6 MG/DL (1.5-2.5); PHOSPHORUS 1.4 MG/DL (2.5-4.9); SODIUM (NA) 140 MEQ/L (136-145); TOTAL BILIRUBIN ADULT 2.4 MG/DL (0.2-1.0); TOTAL PROTEIN 5.3 GM/DL (6.4-8.2)
--- NOTE | 2018-01-12 13:06 | HHI.GIFU ---
Subjective Remarks Pt resting in bed, sleepy. No complaints. (Carmenza Vásquez) Objective Vitals I&O Vital Signs Date Time Temp Pulse Resp B/P (MAP) Pulse Ox O2 Delivery O2 Flow Rate FiO2 01/12/18 11:00 78 01/12/18 11:00 Nasal Cannula 4.00 01/12/18 08:00 73 01/12/18 07:00 97.6 73 16 103/48 (66) 97 01/12/18 07:00 Nasal Cannula 4.00 01/12/18 04:00 68 01/12/18 04:00 98.0 70 18 85/41 (56) 96 01/12/18 04:00 Nasal Cannula 4.00 01/12/18 00:00 Nasal Cannula 4.00 01/12/18 00:00 98.3 77 18 88/45 (59) 92 01/12/18 00:00 75 01/11/18 20:00 97.6 79 18 85/43 (57) 98 01/11/18 20:00 Nasal Cannula 4.00 01/11/18 20:00 77 01/11/18 18:48 20 01/11/18 18:00 74 01/11/18 17:00 75 01/11/18 16:00 75 01/11/18 15:00 93 Nasal Cannula 4.00 01/11/18 15:00 97.9 76 14 89/54 (66) 93 01/11/18 15:00 74 01/11/18 14:00 72 01/11/18 13:00 80 I/O 01/11/18 01/11/18 01/11/18 01/12/18 01/12/18 01/12/18 07:00 15:00 23:00 07:00 15:00 23:00 Intake Total 2140.2 ml 100 ml 800 ml 2888.7 ml Output Total 400 ml 425 ml 425 ml Balance 1740.2 ml 100 ml 375 ml 2463.7 ml Intake Oral 840 ml 600 ml 480 ml IV Total 1300.2 ml 100 ml 200 ml 2408.7 ml Output Urine Total 400 ml 425 ml 425 ml # Bowel Movements 3 Laboratory Laboratory Tests Test 01/11/18 17:39 01/11/18 17:59 01/12/18 08:40 Ammonia 43 Prothrombin Time 21.4 Prothromb Time International Ratio 2.1 White Blood Count 5.0 Red Blood Count 2.84 Hemoglobin 11.1 Hematocrit 31.0 Mean Corpuscular Volume 109.1 Mean Corpuscular Hemoglobin 39.2 Mean Corpuscular Hemoglobin Concent 35.9 Red Cell Distribution Width 15.0 Platelet Count 79 Mean Platelet Volume 7.4 Neutrophils (%) (Auto) 73.4 Lymphocytes (%) (Auto) 19.4 Monocytes (%) (Auto) 5.6 Eosinophils (%) (Auto) 0.7 Basophils (%) (Auto) 0.9 Neutrophils # (Auto) 3.7 Lymphocytes # (Auto) 1.0 Monocytes # (Auto) 0.3 Eosinophils # (Auto) 0.0 Basophils # (Auto) 0.0 CBC Comment AUTO DIFF Differential Comment AUTO DIFF CONFIRMED Platelet Estimate LOW Platelet Morphology Comment NORMAL Blood Urea Nitrogen 18 Creatinine 0.48 Random Glucose 101 Total Protein 5.3 Albumin 1.8 Calcium Level 8.2 Phosphorus Level 1.4 Magnesium Level 1.6 Alkaline Phosphatase 93 Aspartate Amino Transf (AST/SGOT) 84 Alanine Aminotransferase (ALT/SGPT) 37 Total Bilirubin 2.4 Sodium Level 140 Potassium Level 3.1 Chloride Level 108 Carbon Dioxide Level 26.0 Anion Gap 6 Estimat Glomerular Filtration Rate 134 Date/Time Source Procedure Growth Status 01/10/18 15:10 Fluid Peritoneal Fluid Gram Stain - Final Resulted 01/10/18 15:10 Fluid Peritoneal Fluid Body Fluid Culture - Preliminary NO GROWTH IN 48 HOURS. Resulted 01/10/18 06:00 Urine Catheterized Urine Urine Culture - Final Escherichia Coli Complete Imaging Last Impressions Cyst Biopsy Asp-Paracentesis US 01/10/18 0000 Signed Impressions: Service Date/Time: Wednesday, January 10, 2018 14:33 - CONCLUSION: Uncomplicated ultrasound guided paracentesis. Andrews Toure MD Abdomen/Pelvis CT 01/09/18 2231 Signed Impressions: Service Date/Time: Wednesday, January 10, 2018 00:19 - CONCLUSION: 1. Cirrhosis with varicosities at the GE junction as well as within the left hemipelvis. 2. Circumferential wall thickening involving the lower thoracic esophagus. This could relate to venous congestion given the underlying cirrhotic liver. I cannot exclude an infiltrating mass. 3. Large volume ascites. 4. Anasarca. 5. Prior cholecystectomy. Steve King Jr., MD Abdomen X-Ray 01/09/18 0000 Signed Impressions: Service Date/Time: Tuesday, January 09, 2018 22:06 - CONCLUSION: Nonspecific, nonobstructive bowel gas pattern. Splenomegaly and suspected small ascites. Guille Elkins MD Physical Exam HEENT: Normocephalic; atraumatic; (+) icterus CHEST: Even/unlabored CARDIAC: RRR ABDOMEN: Distended, soft, diffuse TTP, bowel sounds active EXTREMITIES: No clubbing, cyanosis, or edema. SKIN: (+) jaundice. ASSOCIATE PROFESSOR OF THEOLOGY: No focal deficits; alert and oriented times three. (Carmenza Vásquez) Assessment and Plan Plan ASSESSMENT - hematemesis - UGIB. EGD & colonoscopy that same admission with Dr Moy that found hiatal hernia, portal gastropathy, duodenal and gastric ulcers, duodenitis, diverticulosis, submucosal nodule rectum, suggestive of rectal prolapse. HH currently WNL pt is refusing endoscopy. - abd pain - could be r/t ulcer and/or ascites - cirrhosis, ascites - 2/2 etoh, hep c. Liver bx 12/13/17 showed active chronic hepatitis is consistent with hepatitis C, increased hepatocyte iron, suggesting hemochromatosis, inclusions in some hepatocytes and Alpha-1 antitrypsin deficiency cannot be excluded. She had a liver workup prior admission in November which showed pos KAROL 1:40 diffuse pattern. do not see a1a in previous workup, will check. still drinks etoh occasionally. CT 01/09/18 --> cirrhosis, GE jxn varices, circumferential wall thickening esophagus could be r/t venous congestion but can't exclude mass, large ascites, anasarca. MELD 22 DF 42 could benefit from steroids if SBP ruled out - coagulopathy - INR 2.0 today, 2/2 cirrhosis (01/11) --> Pt with continued complaints of abdominal pain and distention. S/P paracentesis (01/10) --> 5,000 cc of cloudy, yellow fluid removed. SAAG 1.7. Peritoneal WBC-6, 251. Culture pending. On Rocephin. LFTs trending down. currently AST-116 ALT-44 T bili-2.7 Alk phos-79 Alpha-1 antitrypsin pending. HFE pending. Drop in H/H noted- hgb 12.4 yesterday 9.3 today. Pt still refusing EGD. No obvious continuation of GIB. 01/12/18 abd improved somewhat, no complaints, but still diffusely tender on exam. LFTs trending down. a1a and hfe still pending. HH improved NH 42. on lactulose fluid cx no growth 48h PLAN -await hfe and a1a - Monitor labs - Pentoxifylline - Vit K - Rocephin - lactulose Pt has been seen and examined by myself and Dr. Solomon and this note is written on his behalf (Carmenza Vásquez) Physician Comments Agree with above assessment and plan. Will follow up with you. (Hamzah Solomon MD) Carmenza Vásquez Jan 12, 2018 13:06 Hamzah Solomon MD Jan 12, 2018 14:44
[2018-01-12] MEDS ORDERED: POTASSIUM PHOSPHATE INJ 21 MMOL in SODIUM CHLORIDE 0.9% INJ 150 ML IV ONE (16:15)
[2018-01-12] MEDS: MAGNESIUM SULFATE 1 GM PREMIX 100 ML IV SCH ×2 (17:27→18:21)
[2018-01-12] MEDS: LORazepam 2 MG/ML VIAL IV PRN (17:27)
[2018-01-12] MEDS: POTASSIUM CHLOR 20 MEQ PREMIX 100 ML IV SCH ×2 (19:17→22:31)
[2018-01-12] MEDS: MULTIVITAMIN INJ 10 ML, FOLIC ACID INJ 1 MG in SODIUM CHLORID 0.9% 500 ML INJ 500 ML IV SCH (22:29)
[2018-01-12] MEDS: THIAMINE INJ 100 MG in SODIUM CHLORIDE 0.9% INJ 100 ML IV SCH (22:29)
[2018-01-13] VITALS (30 sets, daily range): BP systolic 12–108; BP diastolic 48–68; PULSE 76–99; RESP 16–22; TEMP 97.4–98; O2SAT 93–97
[2018-01-13] MEDS: metroNIDAZOLE 500 MG INJ 100 ML IV SCH ×5 (01:00→23:35)
[2018-01-13] MEDS: LORazepam 2 MG/ML VIAL IV PRN ×3 (02:53→21:43)
[2018-01-13] MEDS: SODIUM CHLOR 0.9% 1000 ML INJ 1,000 ML IV SCH ×2 (04:20→16:28)
[2018-01-13] MEDS: PANTOPRAZOLE INJ 80 MG in SODIUM CHLORIDE 0.9% INJ 100 ML IV SCH ×2 (04:22→16:28)
[2018-01-13] MEDS: cefTRIAXone INJ 1,000 MG in SODIUM CHLORIDE 0.9% INJ 100 ML IV SCH (04:59)
[2018-01-13] MEDS: OCTREOTIDE INJ 500 MCG in SODIUM CHLORID 0.9% 500 ML INJ 500 ML IV SCH ×2 (06:13→16:28)
[2018-01-13] MEDS: PENTOXIFYLLINE 400 MG CONTROLLED RELEASE TAB PO SCH ×4 (06:42→20:54)
[2018-01-13] MEDS: LACTULOSE SYRUP 20 GM/30 ML CUP PO SCH ×2 (08:01→20:46)
[2018-01-13] MEDS: PHYTONADIONE 5 MG/SWFI 5 ML ORAL SYR PO SCH (08:01)
[2018-01-13] MEDS: SODIUM CHLORIDE 0.9% FLUSH 10 ML FLUSH IV FLUSH SCH ×2 (08:01→20:46)
[2018-01-13 09:10] LABS: MAGNESIUM 1.7 MG/DL (1.5-2.5); PHOSPHORUS 1.2 MG/DL (2.5-4.9)
--- NOTE | 2018-01-13 10:11 | HHI.GIFU ---
Subjective Remarks Sleeping, but arouses is drowsy to verbal stimuli Currently denies any pain, nausea or vomiting Afebrile No obvious bleeding, hemoglobin 11.1 (Deb Felipe) Objective Vitals I&O Vital Signs Date Time Temp Pulse Resp B/P (MAP) Pulse Ox O2 Delivery O2 Flow Rate FiO2 01/13/18 07:42 93 Nasal Cannula 3.00 01/13/18 07:42 98.0 99 22 105/59 (74) 93 01/13/18 06:00 92 01/13/18 05:00 82 01/13/18 04:00 82 01/13/18 03:35 93 Nasal Cannula 3.00 01/13/18 03:35 86 20 12/62 (46) 93 01/13/18 03:00 82 01/13/18 02:00 80 01/13/18 01:00 80 01/13/18 00:00 76 01/12/18 23:15 83 16 105/51 (69) 97 01/12/18 23:15 97 Nasal Cannula 4.00 01/12/18 23:00 80 01/12/18 22:00 78 01/12/18 21:00 88 01/12/18 20:00 88 01/12/18 19:45 97.9 79 16 109/69 (82) 92 01/12/18 19:45 92 Nasal Cannula 4.00 01/12/18 19:00 75 01/12/18 18:00 76 01/12/18 17:00 76 01/12/18 16:00 77 01/12/18 15:00 Nasal Cannula 4.00 01/12/18 15:00 97.8 76 24 100/47 (64) 98 01/12/18 13:00 76 01/12/18 12:00 70 01/12/18 11:00 78 01/12/18 11:00 97.2 76 18 98/48 (65) 95 01/12/18 11:00 Nasal Cannula 4.00 I/O 01/12/18 01/12/18 01/12/18 01/13/18 01/13/18 01/13/18 07:00 15:00 23:00 07:00 15:00 23:00 Intake Total 2888.7 ml 600.5 ml 1911.45 ml 240 ml Output Total 425 ml 400 ml Balance 2463.7 ml 600.5 ml 1911.45 ml -160 ml Intake Oral 480 ml 240 ml IV Total 2408.7 ml 600.5 ml 1911.45 ml Output Urine Total 425 ml 400 ml # Bowel Movements 3 2 Laboratory Laboratory Tests Test 01/13/18 07:46 Potassium Level 3.1 Phosphorus Level 1.2 Magnesium Level 1.7 Date/Time Source Procedure Growth Status 01/10/18 15:10 Fluid Peritoneal Fluid Gram Stain - Final Complete 01/10/18 15:10 Fluid Peritoneal Fluid Body Fluid Culture - Final NO GROWTH IN 72 HRS.--AEROBICALLY OR ... Complete 01/10/18 06:00 Urine Catheterized Urine Urine Culture - Final Escherichia Coli Complete Imaging Last Impressions Cyst Biopsy Asp-Paracentesis US 01/10/18 0000 Signed Impressions: Service Date/Time: Wednesday, January 10, 2018 14:33 - CONCLUSION: Uncomplicated ultrasound guided paracentesis. Andrews Toure MD Abdomen/Pelvis CT 01/09/18 2231 Signed Impressions: Service Date/Time: Wednesday, January 10, 2018 00:19 - CONCLUSION: 1. Cirrhosis with varicosities at the GE junction as well as within the left hemipelvis. 2. Circumferential wall thickening involving the lower thoracic esophagus. This could relate to venous congestion given the underlying cirrhotic liver. I cannot exclude an infiltrating mass. 3. Large volume ascites. 4. Anasarca. 5. Prior cholecystectomy. Steve King Jr., MD Abdomen X-Ray 01/09/18 0000 Signed Impressions: Service Date/Time: Tuesday, January 09, 2018 22:06 - CONCLUSION: Nonspecific, nonobstructive bowel gas pattern. Splenomegaly and suspected small ascites. Guille Elkins MD Physical Exam HEENT: Normocephalic; atraumatic; (+) icterus CHEST: Even/unlabored CARDIAC: RRR ABDOMEN: Large, Distended, taut, diffuse TTP, bowel sounds soft EXTREMITIES: No clubbing, cyanosis, or edema. SKIN: (+) jaundice. ACUTE SPECIALIST: No focal deficits; alert and oriented times three. (Deb Felipe) Assessment and Plan Plan ASSESSMENT - hematemesis - UGIB. EGD & colonoscopy that same admission with Dr Moy that found hiatal hernia, portal gastropathy, duodenal and gastric ulcers, duodenitis, diverticulosis, submucosal nodule rectum, suggestive of rectal prolapse. HH currently WNL pt is refusing endoscopy. - abd pain - could be r/t ulcer and/or ascites - cirrhosis, ascites - 2/2 etoh, hep c. Liver bx 12/13/17 showed active chronic hepatitis is consistent with hepatitis C, increased hepatocyte iron, suggesting hemochromatosis, inclusions in some hepatocytes and Alpha-1 antitrypsin deficiency cannot be excluded. She had a liver workup prior admission in November which showed pos KAROL 1:40 diffuse pattern. do not see a1a in previous workup, will check. still drinks etoh occasionally. CT 01/09/18 --> cirrhosis, GE jxn varices, circumferential wall thickening esophagus could be r/t venous congestion but can't exclude mass, large ascites, anasarca. MELD 22 DF 42 could benefit from steroids if SBP ruled out - coagulopathy - INR 2.0 today, 2/2 cirrhosis Paracentesis 01/10/18 (01/11) --> Pt with continued complaints of abdominal pain and distention. S/P paracentesis (01/10) --> 5,000 cc of cloudy, yellow fluid removed. SAAG 1.7. Peritoneal WBC-6, 251. Culture pending. On Rocephin. LFTs trending down. currently AST-116 ALT-44 T bili-2.7 Alk phos-79 Alpha-1 antitrypsin pending. HFE pending. Drop in H/H noted- hgb 12.4 yesterday 9.3 today. Pt still refusing EGD. No obvious continuation of GIB. 01/12/18 abd improved somewhat, no complaints, but still diffusely tender on exam. LFTs trending down. a1a and hfe still pending. HH improved NH 42. on lactulose fluid cx no growth 48h 01/13/18, patient is sleeping no acute shortness of breath, wearing her oxygen. Currently denies any acute abdominal pain. Abdomen still remains generalized tenderness and semifirm Continues to be hypokalemic today potassium 3.1, phosphorus level I.2, Motley catheter shows dark icteric urine PLAN - Monitor labs - Monitor for any acute bleeding - Pentoxifylline - Vit K - Rocephin - lactulose - Supportive care - Encourage increased movement in bed and activity as much as she can tolerate Pt has been seen and examined by myself and Dr. Solomon and this note is written on his behalf (Deb Felipe) Physician Comments Seen and examined, plan as above. Will follow up with you. (Hamzah Solomon MD) Deb Felipe Jan 13, 2018 10:11 Hamzah Solomon MD Jan 13, 2018 12:39
--- NOTE | 2018-01-13 14:26 | HHI.PR ---
Subjective Remarks Follow-up hepatic encephalopathy/upper GI bleed 01/13/18-patient seen and examined, alert and oriented 1, very destructive of care. Afebrile Objective Vitals Vital Signs Date Time Temp Pulse Resp B/P (MAP) Pulse Ox O2 Delivery O2 Flow Rate FiO2 01/13/18 11:41 97.8 89 20 105/48 (67) 96 01/13/18 11:41 96 Nasal Cannula 3.00 01/13/18 10:00 78 01/13/18 09:00 78 01/13/18 08:00 86 01/13/18 07:42 93 Nasal Cannula 3.00 01/13/18 07:42 98.0 99 22 105/59 (74) 93 01/13/18 07:00 90 01/13/18 06:00 92 01/13/18 05:00 82 01/13/18 04:00 82 01/13/18 03:35 93 Nasal Cannula 3.00 01/13/18 03:35 86 20 12/62 (46) 93 01/13/18 03:00 82 01/13/18 02:00 80 01/13/18 01:00 80 01/13/18 00:00 76 01/12/18 23:15 83 16 105/51 (69) 97 01/12/18 23:15 97 Nasal Cannula 4.00 01/12/18 23:00 80 01/12/18 22:00 78 01/12/18 21:00 88 01/12/18 20:00 88 01/12/18 19:45 97.9 79 16 109/69 (82) 92 01/12/18 19:45 92 Nasal Cannula 4.00 01/12/18 19:00 75 01/12/18 18:00 76 01/12/18 17:00 76 01/12/18 16:00 77 01/12/18 15:00 Nasal Cannula 4.00 01/12/18 15:00 97.8 76 24 100/47 (64) 98 I/O 01/12/18 01/12/18 01/12/18 01/13/18 01/13/18 01/13/18 07:00 15:00 23:00 07:00 15:00 23:00 Intake Total 2888.7 ml 600.5 ml 1911.45 ml 240 ml Output Total 425 ml 400 ml Balance 2463.7 ml 600.5 ml 1911.45 ml -160 ml Intake Oral 480 ml 240 ml IV Total 2408.7 ml 600.5 ml 1911.45 ml Output Urine Total 425 ml 400 ml # Bowel Movements 3 2 Result Diagram: 01/12/18 0840 01/13/18 0746 Imaging Last Impressions Cyst Biopsy Asp-Paracentesis US 01/10/18 0000 Signed Impressions: Service Date/Time: Wednesday, January 10, 2018 14:33 - CONCLUSION: Uncomplicated ultrasound guided paracentesis. Andrews Toure MD Abdomen/Pelvis CT 01/09/18 2231 Signed Impressions: Service Date/Time: Wednesday, January 10, 2018 00:19 - CONCLUSION: 1. Cirrhosis with varicosities at the GE junction as well as within the left hemipelvis. 2. Circumferential wall thickening involving the lower thoracic esophagus. This could relate to venous congestion given the underlying cirrhotic liver. I cannot exclude an infiltrating mass. 3. Large volume ascites. 4. Anasarca. 5. Prior cholecystectomy. Steve King Jr., MD Abdomen X-Ray 01/09/18 0000 Signed Impressions: Service Date/Time: Tuesday, January 09, 2018 22:06 - CONCLUSION: Nonspecific, nonobstructive bowel gas pattern. Splenomegaly and suspected small ascites. Guille Elkins MD Objective Remarks GENERAL: Lethargic SKIN: Warm and dry. HEAD: Normocephalic. EYES: No scleral icterus. No injection or drainage. NECK: Supple, trachea midline. No JVD or lymphadenopathy. CARDIOVASCULAR: Regular rate and rhythm without murmurs, gallops, or rubs. RESPIRATORY: Breath sounds equal bilaterally. No accessory muscle use. GASTROINTESTINAL: Abdomen soft, non-tender,+distended. MUSCULOSKELETAL: No cyanosis, or edema. BACK: Nontender without obvious deformity. No CVA tenderness. A/P Problem List: (1) Hematemesis ICD Code: K92.0 - Hematemesis Status: Acute (2) Ascites ICD Code: R18.8 - Other ascites Status: Acute (3) Cirrhosis ICD Code: K74.60 - Unspecified cirrhosis of liver Status: Chronic (4) FLACA (acute kidney injury) ICD Code: N17.9 - Acute kidney failure, unspecified Status: Acute (5) Lactic acid acidosis ICD Code: E87.2 - Acidosis Status: Acute Assessment and Plan 57-year-old female with Hematemesis, suspected related to varices and GI bleed Abdomen CT reviewed and shows Cirrhosis with varicosities at the GE junction as well as within the left hemipelvis. -Monitor H&H -GI ff -Protonix and Octreotide drip -Antiemetics as needed, Pentoxifylline, may need Steroids. refused EGD. Spontaneous Bacterial Peritonitis on Ceftriaxone and Flagyl. hepatitis C by history Lung cancer by history COPD on Bronchodilator, Mucolytic and incentive spirometry. Alcoholic hepatitis on CIWA protocol Ascites Abdominal CT reviewed and shows Large volume ascites. -US guided paracentesis showed SBP Hepatic encephalopathy Continue with lactulose, Trental, monitor ammonia level Acute Kidney Injury, Improved. DVT prophylaxis: SCDs, hold chemical due to hematemesis Problem Qualifiers (1) Hematemesis: Qualified Codes: K92.0 - Hematemesis (2) Ascites: Qualified Codes: K70.31 - Alcoholic cirrhosis of liver with ascites Jean Carlos Rodriguez MD Jan 13, 2018 14:26
[2018-01-13] MEDS ORDERED: POTASSIUM CHLORIDE 10 MEQ CONTROLLED RELEASE TAB PO ONE (14:30)
[2018-01-13] MEDS ORDERED: POTASSIUM PHOSPHATE MONOBASIC 500 MG TAB PO ONE (14:45)
[2018-01-13] MEDS: MULTIVITAMIN INJ 10 ML, FOLIC ACID INJ 1 MG in SODIUM CHLORID 0.9% 500 ML INJ 500 ML IV SCH (20:46)
[2018-01-14] VITALS (27 sets, daily range): BP systolic 97–137; BP diastolic 41–68; PULSE 89–114; RESP 18–28; TEMP 97.9–98.6; O2SAT 82–96
[2018-01-14] MEDS: PANTOPRAZOLE INJ 80 MG in SODIUM CHLORIDE 0.9% INJ 100 ML IV SCH (01:47)
[2018-01-14] MEDS: OCTREOTIDE INJ 500 MCG in SODIUM CHLORID 0.9% 500 ML INJ 500 ML IV SCH (01:47)
[2018-01-14] MEDS: SODIUM CHLOR 0.9% 1000 ML INJ 1,000 ML IV SCH ×2 (04:25→18:00)
[2018-01-14] MEDS: cefTRIAXone INJ 1,000 MG in SODIUM CHLORIDE 0.9% INJ 100 ML IV SCH (04:29)
[2018-01-14] MEDS: PENTOXIFYLLINE 400 MG CONTROLLED RELEASE TAB PO SCH ×4 (06:00→22:51)
[2018-01-14] MEDS: metroNIDAZOLE 500 MG INJ 100 ML IV SCH ×4 (06:26→23:22)
[2018-01-14] MEDS ORDERED: DEXTROSE 50% IN WATER 50 ML SYRINGE ONE (08:40)
[2018-01-14] MEDS: SODIUM CHLORIDE 0.9% FLUSH 10 ML FLUSH IV FLUSH SCH ×2 (08:44→21:00)
[2018-01-14] MEDS: PHYTONADIONE 5 MG/SWFI 5 ML ORAL SYR PO SCH (08:48)
[2018-01-14] MEDS: LACTULOSE SYRUP 20 GM/30 ML CUP PO SCH ×3 (08:48→22:51)
--- NOTE | 2018-01-14 10:56 | HHI.PR ---
Subjective Remarks Follow-up hepatic encephalopathy/upper GI bleed 01/13/18-patient seen and examined, alert and oriented 1, very destructive of care. Afebrile 01/14/18-patient seen and examined, still confused, no GI bleed, only oriented to self Objective Vitals Vital Signs Date Time Temp Pulse Resp B/P (MAP) Pulse Ox O2 Delivery O2 Flow Rate FiO2 01/14/18 08:45 97.9 92 18 97/51 (66) 91 01/14/18 08:45 91 Nasal Cannula 4.00 01/14/18 07:01 89 01/14/18 06:00 92 01/14/18 05:00 100 01/14/18 04:00 90 01/14/18 03:45 93 Nasal Cannula 4.00 01/14/18 03:45 91 20 105/66 (79) 93 01/14/18 03:00 89 01/14/18 02:00 96 01/14/18 01:00 92 01/14/18 00:00 94 01/13/18 23:21 97 Nasal Cannula 4.00 01/13/18 23:19 91 20 100/56 (71) 97 01/13/18 23:00 86 01/13/18 22:00 86 01/13/18 21:00 88 01/13/18 20:00 88 01/13/18 19:40 94 Nasal Cannula 4.00 01/13/18 19:40 97.4 86 16 108/68 (81) 94 01/13/18 19:00 87 01/13/18 18:00 90 01/13/18 17:00 84 01/13/18 16:00 78 01/13/18 15:31 97.9 85 20 104/57 (73) 97 01/13/18 15:31 98 Nasal Cannula 3.00 01/13/18 15:00 86 01/13/18 14:00 86 01/13/18 13:00 80 01/13/18 12:00 80 01/13/18 11:41 97.8 89 20 105/48 (67) 96 01/13/18 11:41 96 Nasal Cannula 3.00 01/13/18 11:00 82 I/O 01/13/18 01/13/18 01/13/18 01/14/18 01/14/18 01/14/18 07:00 15:00 23:00 07:00 15:00 23:00 Intake Total 2011.45 ml 240 ml 240 ml 1360.7 ml Output Total 400 ml 350 ml 300 ml Balance 2010.45 ml -160 ml -110 ml 1060.7 ml Intake Oral 240 ml 240 ml 150 ml IV Total 2011.45 ml 1210.7 ml Output Urine Total 400 ml 350 ml 300 ml # Bowel Movements 2 6 2 Result Diagram: 01/12/18 0840 01/13/18 0746 Objective Remarks GENERAL: Lethargic SKIN: Warm and dry. HEAD: Normocephalic. EYES: No scleral icterus. No injection or drainage. NECK: Supple, trachea midline. No JVD or lymphadenopathy. CARDIOVASCULAR: Regular rate and rhythm without murmurs, gallops, or rubs. RESPIRATORY: Breath sounds equal bilaterally. No accessory muscle use. GASTROINTESTINAL: Abdomen soft, non-tender,+distended. MUSCULOSKELETAL: No cyanosis, or edema. BACK: Nontender without obvious deformity. No CVA tenderness. A/P Problem List: (1) Hematemesis ICD Code: K92.0 - Hematemesis Status: Acute (2) Ascites ICD Code: R18.8 - Other ascites Status: Acute (3) Cirrhosis ICD Code: K74.60 - Unspecified cirrhosis of liver Status: Chronic (4) FLACA (acute kidney injury) ICD Code: N17.9 - Acute kidney failure, unspecified Status: Acute (5) Lactic acid acidosis ICD Code: E87.2 - Acidosis Status: Acute Assessment and Plan 57-year-old female with Hematemesis, suspected related to varices and GI bleed Abdomen CT reviewed and shows Cirrhosis with varicosities at the GE junction as well as within the left hemipelvis. -Monitor H&H -GI ff -Continue Protonix and Octreotide drip -Antiemetics as needed, Pentoxifylline, may need Steroids. refused EGD. Spontaneous Bacterial Peritonitis on Ceftriaxone and Flagyl. hepatitis C by history-chronic Lung cancer by history COPD on Bronchodilator, Mucolytic and incentive spirometry. Alcoholic hepatitis on CIWA protocol Ascites Abdominal CT reviewed and shows Large volume ascites. -US guided paracentesis showed SBP Hepatic encephalopathy Continue with lactulose, Trental, monitor ammonia level Acute Kidney Injury, Improved. DVT prophylaxis: SCDs, hold chemical due to hematemesis Problem Qualifiers (1) Hematemesis: Qualified Codes: K92.0 - Hematemesis (2) Ascites: Qualified Codes: K70.31 - Alcoholic cirrhosis of liver with ascites Jean Carlos Rodriguez MD Jan 14, 2018 10:56
[2018-01-14] MEDS: LORazepam 2 MG/ML VIAL IV PRN ×2 (12:04→22:58)
[2018-01-14 12:44] LABS: ALBUMIN 2.1 GM/DL (3.4-5.0); ALT (GPT) 36 U/L (10-53); AST (GOT) 68 U/L (15-37); BLOOD UREA NITROGEN 10 MG/DL (7-18); CALCIUM 7.9 MG/DL (8.5-10.1); CHLORIDE 114 MEQ/L (98-107); CREATININE 0.51 MG/DL (0.50-1.00); GLOMERULAR FILTRATION RATE 125 ML/MIN (>89); GLUCOSE,RANDOM 101 MG/DL (74-106); SODIUM (NA) 146 MEQ/L (136-145)
[2018-01-14 12:46] LABS: ALKALINE PHOSPHATASE 121 U/L (45-117); TOTAL BILIRUBIN ADULT 2.7 MG/DL (0.2-1.0); TOTAL PROTEIN 6.6 GM/DL (6.4-8.2)
--- NOTE | 2018-01-14 13:33 | HHI.GIFU ---
Subjective Remarks Pt resting in bed. c/o abd pain. confused. (Carmenza Vásquez) Objective Vitals I&O Vital Signs Date Time Temp Pulse Resp B/P (MAP) Pulse Ox O2 Delivery O2 Flow Rate FiO2 01/14/18 11:01 90 Nasal Cannula 4.00 01/14/18 11:01 98.1 90 20 101/53 (69) 90 01/14/18 08:45 97.9 92 18 97/51 (66) 91 01/14/18 08:45 91 Nasal Cannula 4.00 01/14/18 07:01 89 01/14/18 06:00 92 01/14/18 05:00 100 01/14/18 04:00 90 01/14/18 03:45 93 Nasal Cannula 4.00 01/14/18 03:45 91 20 105/66 (79) 93 01/14/18 03:00 89 01/14/18 02:00 96 01/14/18 01:00 92 01/14/18 00:00 94 01/13/18 23:21 97 Nasal Cannula 4.00 01/13/18 23:19 91 20 100/56 (71) 97 01/13/18 23:00 86 01/13/18 22:00 86 01/13/18 21:00 88 01/13/18 20:00 88 01/13/18 19:40 94 Nasal Cannula 4.00 01/13/18 19:40 97.4 86 16 108/68 (81) 94 01/13/18 19:00 87 01/13/18 18:00 90 01/13/18 17:00 84 01/13/18 16:00 78 01/13/18 15:31 97.9 85 20 104/57 (73) 97 01/13/18 15:31 98 Nasal Cannula 3.00 01/13/18 15:00 86 01/13/18 14:00 86 I/O 01/13/1818 18 01/14/18 01/14/18 01/14/18 07:00 15:00 23:00 07:00 15:00 23:00 Intake Total 2010.45 ml 240 ml 240 ml 1360.7 ml Output Total 400 ml 350 ml 300 ml Balance 2010.45 ml -160 ml -110 ml 1060.7 ml Intake Oral 240 ml 240 ml 150 ml IV Total 2011.45 ml 1210.7 ml Output Urine Total 400 ml 350 ml 300 ml # Bowel Movements 2 6 2 Laboratory Laboratory Tests Test 01/14/18 11:39 Blood Urea Nitrogen 10 Creatinine 0.51 Random Glucose 101 Total Protein 6.6 Albumin 2.1 Calcium Level 7.9 Alkaline Phosphatase 121 Aspartate Amino Transf (AST/SGOT) 68 Alanine Aminotransferase (ALT/SGPT) 36 Total Bilirubin 2.7 Sodium Level 146 Potassium Level 3.8 Chloride Level 114 Carbon Dioxide Level 24.0 Anion Gap 8 Estimat Glomerular Filtration Rate 125 Ammonia 20 Date/Time Source Procedure Growth Status 01/10/18 15:10 Fluid Peritoneal Fluid Gram Stain - Final Complete 01/10/18 15:10 Fluid Peritoneal Fluid Body Fluid Culture - Final NO GROWTH IN 72 HRS.--AEROBICALLY OR ... Complete 01/10/18 06:00 Urine Catheterized Urine Urine Culture - Final Escherichia Coli Complete Imaging Last Impressions Cyst Biopsy Asp-Paracentesis US 01/10/18 0000 Signed Impressions: Service Date/Time: Wednesday, January 10, 2018 14:33 - CONCLUSION: Uncomplicated ultrasound guided paracentesis. Andrews Toure MD Abdomen/Pelvis CT 01/09/18 2231 Signed Impressions: Service Date/Time: Wednesday, January 10, 2018 00:19 - CONCLUSION: 1. Cirrhosis with varicosities at the GE junction as well as within the left hemipelvis. 2. Circumferential wall thickening involving the lower thoracic esophagus. This could relate to venous congestion given the underlying cirrhotic liver. I cannot exclude an infiltrating mass. 3. Large volume ascites. 4. Anasarca. 5. Prior cholecystectomy. Steve King Jr., MD Abdomen X-Ray 01/09/18 0000 Signed Impressions: Service Date/Time: Tuesday, January 09, 2018 22:06 - CONCLUSION: Nonspecific, nonobstructive bowel gas pattern. Splenomegaly and suspected small ascites. Guille Elkins MD Physical Exam HEENT: Normocephalic; atraumatic; (+) icterus CHEST: CTA shallow CARDIAC: RRR ABDOMEN: Large, Distended, diffuse TTP, bowel sounds soft EXTREMITIES: No clubbing, cyanosis, or edema. SKIN: (+) jaundice. DONOR RELATIONS COORDINATOR: lethargic (Carmenza Vásquez) Assessment and Plan Plan ASSESSMENT - hematemesis - UGIB. EGD & colonoscopy that same admission with Dr Moy that found hiatal hernia, portal gastropathy, duodenal and gastric ulcers, duodenitis, diverticulosis, submucosal nodule rectum, suggestive of rectal prolapse. HH currently WNL pt is refusing endoscopy. - abd pain - could be r/t ulcer and/or ascites - cirrhosis, ascites - 2/2 etoh, hep c. Liver bx 12/13/17 showed active chronic hepatitis is consistent with hepatitis C, increased hepatocyte iron, suggesting hemochromatosis, inclusions in some hepatocytes and Alpha-1 antitrypsin deficiency cannot be excluded. She had a liver workup prior admission in November which showed pos KAROL 1:40 diffuse pattern. do not see a1a in previous workup, will check. still drinks etoh occasionally. CT 01/09/18 --> cirrhosis, GE jxn varices, circumferential wall thickening esophagus could be r/t venous congestion but can't exclude mass, large ascites, anasarca. MELD 22 DF 42 could benefit from steroids if SBP ruled out - coagulopathy - INR 2.0 today, 2/2 cirrhosis Paracentesis 01/10/18 (01/11) --> Pt with continued complaints of abdominal pain and distention. S/P paracentesis (01/10) --> 5,000 cc of cloudy, yellow fluid removed. SAAG 1.7. Peritoneal WBC-6, 251. Culture pending. On Rocephin. LFTs trending down. currently AST-116 ALT-44 T bili-2.7 Alk phos-79 Alpha-1 antitrypsin pending. HFE pending. Drop in H/H noted- hgb 12.4 yesterday 9.3 today. Pt still refusing EGD. No obvious continuation of GIB. 01/12/18 abd improved somewhat, no complaints, but still diffusely tender on exam. LFTs trending down. a1a and hfe still pending. HH improved NH 42. on lactulose fluid cx no growth 48h 01/13/18, patient is sleeping no acute shortness of breath, wearing her oxygen. Currently denies any acute abdominal pain. Abdomen still remains generalized tenderness and semifirm Continues to be hypokalemic today potassium 3.1, phosphorus level I.2, Motley catheter shows dark icteric urine 01/14/18 pt c/o abd pain. lethargic, NH WNL. CBC pending. has refused endoscopy PLAN - paracentesis as needed - await CBC - Monitor labs - phytonadione - Pentoxifylline - Rocephin - lactulose - d/c octreotide - d/c protonix gtt and start BID IV protonix - Supportive care - GI will sign off, please reconsult if needed Pt has been seen and examined by myself and Dr. Solomon and this note is written on his behalf (Carmenza Vásquez) Physician Comments Agree with the plan as above, please notify us if needed again. (Hamzah Solomon MD) Carmenza Vásquez Jan 14, 2018 13:33 Hamzah Solomon MD Jan 14, 2018 18:53
--- NOTE | 2018-01-14 21:19 | RADRPT ---
EXAM DATE/TIME: 01/14/2018 20:47 [facility] COMPARISON: CHEST SINGLE AP, December 09, 2017, 21:02. INDICATIONS : Respiratory disease MEDICAL HISTORY : Chronic obstructive pulmonary disease. Hepatitis C. Carcinoma, lung.Colitis. SURGICAL HISTORY : Cholecystectomy. section ENCOUNTER: Subsequent ACUITY: 1 week PAIN SCORE: Non-responsive. LOCATION: chest FINDINGS: Bilateral hazy airspace disease more confluent in the right upper lobe. Bilateral effusions. Heart si ze upper limits normal. No pneumothorax. Mild scoliosis. CONCLUSION: 1. Bilateral airspace disease that may represent mild edema with more confluent opacity in the upper right lung that can be characteristic of pneumonia. Uvaldo Clemens MD on January 14, 2018 at 21:15 Board Certified Radiologist. This report was verified electronically.
[2018-01-14 21:46] LABS: BICARBONATE 22.2 MEQ/L (21.0-32.0); CALCIUM 8.2 MG/DL (8.5-10.1); CREATININE 0.58 MG/DL (0.50-1.00)
[2018-01-14 22:15] LABS: HEMATOCRIT 37.5 % (35.0-46.0); HEMOGLOBIN 13.2 GM/DL (11.6-15.3); MEAN CELL VOLUME 115.8 FL (80.0-100.0); MEAN CORPUSCULAR HEMOGLOBIN 40.9 PG (27.0-34.0); MEAN CORPUSCULAR HGB CONC 35.3 % (32.0-36.0); MEAN PLATELET VOLUME 7.7 FL (7.0-11.0); PLATELET COUNT 97 TH/MM3 (150-450); RED BLOOD COUNT 3.23 MIL/MM3 (4.00-5.30); RED CELL DISTRIBUTION WIDTH 16.2 % (11.6-17.2); WHITE BLOOD COUNT 9.1 TH/MM3 (4.0-11.0)
[2018-01-14 22:20] LABS: BANDS 1 % (0-6); CORRECTED NUCLEATED RBC 1 /100 WBC (0-0); LYMPHOCYTES 7 % (9-44); MONOCYTES 6 % (0-8); NEUTROPHIL # MANUAL DIFF 7.9 TH/MM3 (1.8-7.7); NUCLEATED RED BLOOD CELL 1 (0-0); POLYS (SEG NEUTROPHILS) 86 % (16-70)
[2018-01-14 22:21] LABS: OVALOCYTES 1+ (NORMAL); TEARDROP RBCS 1+ (NORMAL)
[2018-01-14] MEDS: MULTIVITAMIN INJ 10 ML, FOLIC ACID INJ 1 MG in SODIUM CHLORID 0.9% 500 ML INJ 500 ML IV SCH (22:50)
[2018-01-14] MEDS: PANTOPRAZOLE SODIUM 40 MG VIAL IV PUSH SCH (22:51)
[2018-01-14] MEDS ORDERED: GLUCAGON 1 MG/ML VIAL OTHER PRN (23:00)
[2018-01-14] MEDS ORDERED: DEXTROSE 50% IN WATER 50 ML VIAL(D50) IV PUSH PRN (23:00)
[2018-01-15] VITALS (17 sets, daily range): BP systolic 92–115; BP diastolic 51–59; PULSE 104–117; RESP 21–28; TEMP 97.1–98.5; O2SAT 85–94
[2018-01-15] MEDS: SODIUM CHLOR 0.9% 1000 ML INJ 1,000 ML IV SCH (01:29)
[2018-01-15] MEDS: cefTRIAXone INJ 1,000 MG in SODIUM CHLORIDE 0.9% INJ 100 ML IV SCH (05:00)
[2018-01-15] MEDS: LORazepam 2 MG/ML VIAL IV PRN (05:00)
[2018-01-15] MEDS: PENTOXIFYLLINE 400 MG CONTROLLED RELEASE TAB PO SCH ×2 (05:01→12:07)
[2018-01-15] MEDS: metroNIDAZOLE 500 MG INJ 100 ML IV SCH ×2 (05:01→12:00)
[2018-01-15] MEDS ORDERED: FUROSEMIDE 40 MG/4 ML VIAL IV PUSH ONE (05:30)
[2018-01-15] MEDS: SODIUM CHLORIDE 0.9% FLUSH 10 ML FLUSH IV FLUSH SCH ×2 (08:54→20:33)
[2018-01-15] MEDS: LACTULOSE SYRUP 20 GM/30 ML CUP PO SCH ×2 (08:54→20:33)
[2018-01-15] MEDS: PHYTONADIONE 5 MG/SWFI 5 ML ORAL SYR PO SCH (08:55)
[2018-01-15] MEDS: PANTOPRAZOLE SODIUM 40 MG VIAL IV PUSH SCH ×2 (09:07→20:33)
--- NOTE | 2018-01-15 09:35 | RADRPT ---
EXAM DATE/TIME: 01/15/2018 08:26 [facility] COMPARISON: No previous studies available for comparison. INDICATIONS : Ascites. MEDICAL HISTORY : Carcinoma, lung. Hepatitis C. Cirrhosis. COPD. Cardiac disorders. Head trauma. Colitis. Ascites. SURGICAL HISTORY : section. Paracentesis. ENCOUNTER: Subsequent ACUITY: 1 day PAIN SCORE: Nonresponsive. LOCATION: Abdomen. AREA EVALUATED: Abdomen. FINDINGS: Imaging of the abdomen and pelvis was performed to evaluate for ascites for possible paracentesis. CONCLUSION: 1. Moderate amount of ascites. Omega Villagran MD on January 15, 2018 at 9:32 Board Certified Radiologist. This report was verified electronically.
--- NOTE | 2018-01-15 10:44 | PD.CONS ---
Consult Service Palliative Care Consult Requested By Lobito YE . Primary Care Physician [facility] Reason for Consultation a. To assist with evaluation and management of symptoms including: dyspnea, pain, nausea b. To assist medical decision maker(s) with: better understanding of current medical conditions; weighing benefits/burdens of medical treatment options; making medical treatment decisions. HPI History of Present Illness 57-year-old patient presented to the ED 01/09/18 with reports of generalized abdominal pain present since a laparoscopic cholecystectomy. She apparently followed up with Dr. Muir and told that "it will resolve ". She states she was feeling well until the night before when she became nauseous and had large amount of dark episodes of hematemesis. She denied changes in bowel habits. Normal BM day of presentation. Denied dizziness, chest pain, shortness of breath, dysuria. She reported she quit drinking "seriously " 7 years prior, but still drinking "socially on weekends ". * Patient received IV fluids, octreotide. ED review of records notes patient with upper endoscopy and lower endoscopy in November prior to cholecystostomy. There is no mention of Esophageal varices. CBC unremarkable. INR 2.0. Alcohol negative. Chemistry within normal limits aside from decreased GFR 41, BUN 19, creatinine 1.35, ? Hepatorenal syndrome. Acid 6.8. Total bili 3.8. AST 110. Likely alcoholic cirrhosis. Enzymes within normal limits. CT = cirrhosis with past varicosities at the GE junction as well as within the left hemipelvis, circumferential wall thickening involving the lower thoracic esophagus, large volume ascites, anasarca, prior cholecystectomy. Patient tachycardic in the ED receiving IV fluids. On octreotide drip, Protonix. * Plan for ultrasound-guided paracentesis. GI consulted. Paracentesis with removal 5000 mL of a yellow fluid. * GI notes recent hepatic workup prior to November admission. Patient reporting following up outpatient with the [facility] for hepatitis C supposed to be starting treatment. GI recommends endoscopy, she is refusing. Liver biopsy notes active chronic hepatitis consistent with hepatitis C, increased hepatocyte iron suggesting hemochromatosis, alpha 1 antitrypsin deficiency cannot be excluded. Prior hepatic workup November showed positive ANA1:40 diffuse pattern. do not see a1a in previous workup, will check. Meld score 42. Consider steroids. Awaiting paracentesis. * 01/11 H&H downtrending 12.42 9.3, patient refusing EGD. No obvious signs of GI bleed. LFTs downtrending. Patient encephalopathic, confused. * 01/14 ammonia 20. Patient noted to be confused. Still with reports of abdominal pain. On lactulose, pentoxifylline. GI has signed off. * 01/15 palliative care consulted to assist with clarification of goals of treatment. Attempted to see patient on fourth floor room, she had just been transferred to SICU due to worsening respiratory status. Patient seen in SICU no visitors present. Discussed with critical care attending Dr. Levine he indicates patient condition worsening overall prognosis poor even with ongoing aggressive medical management. Patient minimally responsive to my exam. She does stir to verbal and touch, she does not verbalize for me mumbles incomprehensible words. She is on 100% nonrebreather mask. She is dyspneic. She is lethargic/obtunded. Tachycardic via bedside monitor. Nursing reports family reported to be en route, a daughter named Elyssa. Call to CVICU nurse Tori to ask regarding daughter she provided daughter's telephone number indicated the daughter was on her way to the hospital. Nursing to call me when daughter arrives. 1430 Met with patient and daughter at bedside upon her arrival. She is supported by a cousin who is present for meeting. Function/Cognitive Trajectory Patient apparently lived at home independent with ADLs prior to this admission. Not working, on disability. Review of Systems ROS Limitations: Clinical Condition, Altered Mental Status (obtunded, has been encephalopathic ongoing) Past Family Social History Coded Allergies: No Known Allergies (Verified Allergy, Unknown, 11/17/17) Past Medical History COPD Cirrhosis Hep C lung cancer ? small cell, [facility] , [facility] [place] . Past Surgical History Cholecystectomy 11/2017 C section liver bx . Reported Medications Ciprofloxacin Gabapentin 600 mg twice a day Hydrocodone 5/325 one every 4 prn Senna plus twice a day . Current Medications Medications (Trade) Dose Ordered Sig/Shahram Route Start Time Stop Time Status Last Admin (NS Flush) 2 ml UNSCH PRN IV FLUSH 01/10/18 02:45 (NS Flush) 2 ml BID IV FLUSH 01/10/18 09:00 01/15/18 08:54 (Narcan Inj) 0.4 mg UNSCH PRN IV PUSH 01/10/18 02:45 (Mephyton Liq) 5 mg DAILY PO 01/10/18 09:00 01/13/18 08:01 (Zofran Inj) 4 mg Q6H PRN IV PUSH 01/10/18 05:30 Ceftriaxone Sodium 1000 mg/ Sodium Chloride 100 ml @ 200 mls/hr Q24H IV 01/10/18 06:00 01/15/18 05:00 Metronidazole 100 ml @ 100 mls/hr Q6H IV 01/10/18 06:00 01/15/18 05:01 (TRENtal SR) 400 mg Q8HR PO 01/10/18 14:00 01/14/18 12:55 (Roxicodone) 5 mg Q6H PRN PO 01/10/18 17:30 01/14/18 23:18 Multivitamins 10 ml/Folic Acid 1 mg/Sodium Chloride 510.2 ml @ 125 mls/hr Q24H IV 01/10/18 20:00 01/15/18 19:59 01/14/18 22:50 (Lactulose Liq) 30 ml BID PO 01/11/18 21:00 01/13/18 08:01 (Ativan Inj) 1 mg Q6H PRN IV 01/13/18 17:15 01/15/18 05:00 (Protonix Inj) 40 mg Q12HR IV PUSH 01/14/18 21:00 01/15/18 09:07 (D50w (Vial) Inj) 50 ml UNSCH PRN IV PUSH 01/14/18 23:00 01/14/18 23:10 (Glucagon Inj) 1 mg UNSCH PRN OTHER 01/14/18 23:00 Family History Mom: Brain Cancer Dad: [facility] siblings with diabetes, breast cancer, colon cancer, mesothelioma, CAD Substance Use Tobacco: Smokes 1 PPD, daughter also reports asbestos exposure Alcohol: Formerly drank heavily, more recently socially on weekends Prescription med abuse: None reported Illicits:" Medical marijuana card buenrostro" . Psychosocial History [place] . . Lived at home alone. To [facility] in the past few years. Has a daughter Estrella, significant other. Reported to have 2 other children who were adopted by an aunt as young children, patient and daughter have not remained in communication with them. Spiritual/Cultural Factors Hinduism-cheese specialist has been notified by hospital odd shoe examiner Ethical and Legal Issues Patient is currently not able to make decisions due to clinical condition, has had ongoing encephalopathy. Does not appear she will regain this ability. Per [place] statutes appropriate legal proxy would be: Her daughter Estrella. Reported to have 2 other children who were adopted by an aunt as young children, patient and daughter have not remained in communication with them. Physical Exam Vital Signs Date Time Temp Pulse Resp B/P (MAP) Pulse Ox O2 Delivery O2 Flow Rate FiO2 01/15/18 08:15 91 Partial Rebreather 15.00 01/15/18 06:09 109 01/15/18 05:00 105 01/15/18 04:07 112 01/15/18 04:07 94 Non-Rebreather 01/15/18 04:07 98.4 109 22 105/58 (74) 94 01/15/18 03:00 110 01/15/18 02:00 104 01/15/18 01:00 106 01/15/18 00:00 116 01/14/18 23:00 94 Non-Rebreather 01/14/18 23:00 98.6 108 23 125/64 (84) 94 01/14/18 23:00 114 01/14/18 21:50 96 Non-Rebreather 12.00 01/14/18 19:57 112 24 106/62 (77) 92 01/14/18 19:52 110 28 137/68 (91) 82 01/14/18 19:20 84 6.00 01/14/18 17:01 110 01/14/18 16:00 102 01/14/18 15:01 97.9 104 20 107/41 (63) 90 01/14/18 15:01 90 Nasal Cannula 4.00 01/14/18 15:00 108 01/14/18 14:01 100 01/14/18 13:00 100 01/14/18 12:00 96 01/14/18 11:01 90 Nasal Cannula 4.00 01/14/18 11:01 98.1 90 20 101/53 (69) 90 01/14/18 11:00 98 Exam CONSTITUTIONAL/GENERAL: This is a frail, chronically ill appearing patient, very lethargic TUBES/LINES/DRAINS: Peripheral IV upper extremity, nonrebreather mask, Motley catheter SKIN: + jaundice. Few healed lesions to upper extremities. No wounds seen anteriorly. Skin warm/dry. HEAD: Atraumatic. Normocephalic. EYES: Pupils 3 mm, sluggish reaction to light.+ Scleral icterus.No injection or drainage. Fundi not examined. ENT: Nose without bleeding or purulent drainage. Does not open mouth for oropharynx exam. NECK: Trachea midline. Supple, nontender. No palpable thyroid enlargement or nodularity. CARDIOVASCULAR: Regular rate and rhythm without murmur. Tachycardic. Sinus rhythm at bedside monitor 110 to 120s. + Generalized edema, especially to extremities. RESPIRATORY/CHEST: Symmetric, mildly labored respirations. Mildly tachypneic. Clear to auscultation significantly diminished air movement to bases.. Breath sounds equal bilaterally. GASTROINTESTINAL: Abdomen soft, appears tender, +distended, + ascites. No palpable masses-limited palpation secondary to distention and ascites. Bowel sounds intermittent/very infrequent GENITOURINARY: Without palpable bladder distension. Motley catheter in place- dark tea-colored urine present. MUSCULOSKELETAL: Extremities without clubbing, cyanosis. + Edema to distal extremities. No joint tenderness or effusion noted. NEUROLOGICAL: Lethargic to obtunded. Minimally responsive to exam. Does localize to touch on 4 extremities and moves extremities spontaneously very weakly. Brief eye opening. Attempts to verbalize garbled sounds unable to understand. Does not follow commands for me. PSYCHIATRIC: No obvious anxiety--limited assessment secondary to clinical condition. . Diagnostic Tests Laboratory Laboratory Tests Test 01/13/18 07:46 01/14/18 11:39 01/14/18 21:11 01/14/18 21:15 Potassium Level 3.1 MEQ/L (3.5-5.1) 3.8 MEQ/L (3.5-5.1) 3.8 MEQ/L (3.5-5.1) Phosphorus Level 1.2 MG/DL (2.5-4.9) Magnesium Level 1.7 MG/DL (1.5-2.5) Blood Urea Nitrogen 10 MG/DL (7-18) 11 MG/DL (7-18) Creatinine 0.51 MG/DL (0.50-1.00) 0.58 MG/DL (0.50-1.00) Random Glucose 101 MG/DL (74-106) 88 MG/DL (74-106) Total Protein 6.6 GM/DL (6.4-8.2) Albumin 2.1 GM/DL (3.4-5.0) Calcium Level 7.9 MG/DL (8.5-10.1) 8.2 MG/DL (8.5-10.1) Alkaline Phosphatase 121 U/L (45-117) Aspartate Amino Transf (AST/SGOT) 68 U/L (15-37) Alanine Aminotransferase (ALT/SGPT) 36 U/L (10-53) Total Bilirubin 2.7 MG/DL (0.2-1.0) Sodium Level 146 MEQ/L (136-145) 147 MEQ/L (136-145) Chloride Level 114 MEQ/L (98-107) 113 MEQ/L (98-107) Carbon Dioxide Level 24.0 MEQ/L (21.0-32.0) 22.2 MEQ/L (21.0-32.0) Anion Gap 8 MEQ/L (5-15) 12 MEQ/L (5-15) Estimat Glomerular Filtration Rate 125 ML/MIN (>89) 108 ML/MIN (>89) Ammonia 20 MCMOL/L (11-32) Blood Gas Puncture Site LT FEMORAL Blood Gas Patient Temperature 98.6 Blood Gas HCO3 21 mmol/L (22-26) Blood Gas Base Excess -3.4 mmol/L (-2-2) Blood Gas Oxygen Saturation 82 % (90-100) Arterial Blood pH 7.35 (7.380-7.420) Arterial Blood Partial Pressure CO2 40 mmHg (38-42) Arterial Blood Partial Pressure O2 54 mmHg (61-120) Arterial Blood Oxygen Content 13.3 Vol % (12.0-20.0) Arterial Blood Carboxyhemoglobin 1.7 % (0-4) Arterial Blood Methemoglobin 1.1 % (0-2) Blood Gas Hemoglobin 11.5 G/DL (12.0-16.0) Oxygen Delivery Device Venti Mask Blood Gas Liter Flow 6 L/M Blood Gas Inspired Oxygen 50 % White Blood Count 9.1 TH/MM3 (4.0-11.0) Red Blood Count 3.23 MIL/MM3 (4.00-5.30) Hemoglobin 13.2 GM/DL (11.6-15.3) Hematocrit 37.5 % (35.0-46.0) Mean Corpuscular Volume 115.8 FL (80.0-100.0) Mean Corpuscular Hemoglobin 40.9 PG (27.0-34.0) Mean Corpuscular Hemoglobin Concent 35.3 % (32.0-36.0) Red Cell Distribution Width 16.2 % (11.6-17.2) Platelet Count 97 TH/MM3 (150-450) Mean Platelet Volume 7.7 FL (7.0-11.0) CBC Comment AUTO DIFF Differential Total Cells Counted 100 Neutrophils % (Manual) 86 % (16-70) Band Neutrophils % 1 % (0-6) Lymphocytes % 7 % (9-44) Monocytes % 6 % (0-8) Neutrophils # (Manual) 7.9 TH/MM3 (1.8-7.7) Nucleated Red Blood Cells 1 /100 WBC (0-0) Differential Comment FINAL DIFF MANUAL Platelet Estimate LOW (NORMAL) Platelet Morphology Comment NORMAL (NORMAL) Tear Drop Cells 1+ (NORMAL) Ovalocytes 1+ (NORMAL) Result Diagram: 01/14/18211401/14/182114 Microbiology Microbiology Date/Time Source Procedure Growth Status 01/10/18 15:10 Fluid Peritoneal Fluid Gram Stain - Final Complete 01/10/18 15:10 Fluid Peritoneal Fluid Body Fluid Culture - Final NO GROWTH IN 72 HRS.--AEROBICALLY OR ... Complete 01/10/18 06:00 Urine Catheterized Urine Urine Culture - Final Escherichia Coli Complete Imaging Last Impressions Abdomen Ultrasound 01/15/18 0000 Signed Impressions: Service Date/Time: Monday, January 15, 2018 08:26 - CONCLUSION: 1. Moderate amount of ascites. Omega Villagran MD Chest X-Ray 01/14/18 0000 Signed Impressions: Service Date/Time: Sunday, January 14, 2018 20:47 - CONCLUSION: 1. Bilateral airspace disease that may represent mild edema with more confluent opacity in the upper right lung that can be characteristic of pneumonia. Uvaldo Clemens MD Cyst Biopsy Asp-Paracentesis US 01/10/18 0000 Signed Impressions: Service Date/Time: Wednesday, January 10, 2018 14:33 - CONCLUSION: Uncomplicated ultrasound guided paracentesis. Andrews Toure MD Abdomen/Pelvis CT 01/09/18 [id number] Signed Impressions: Service Date/Time: Wednesday, January 10, 2018 00:19 - CONCLUSION: 1. Cirrhosis with varicosities at the GE junction as well as within the left hemipelvis. 2. Circumferential wall thickening involving the lower thoracic esophagus. This could relate to venous congestion given the underlying cirrhotic liver. I cannot exclude an infiltrating mass. 3. Large volume ascites. 4. Anasarca. 5. Prior cholecystectomy. Steve King Jr., MD Abdomen X-Ray 01/09/18 0000 Signed Impressions: Service Date/Time: Tuesday, January 09, 2018 22:06 - CONCLUSION: Nonspecific, nonobstructive bowel gas pattern. Splenomegaly and suspected small ascites. Guille Elkins MD Patient/Family Conference Present at Family Conference: Daughter Estrella, daughters cousin Family Conference Time (mins): 25 Family Conference Location: Bedside Issues Discussed: Met with argentina De La Rosa bedside discussion included: * Palliative care role, purpose, approach * Additional medical, psychosocial, and spiritual history * Patients general health, functional status, and cognitive changes in the months leading up to the current hospitalization * family understanding of the current medical problems--much review of underlying disease processes, and end-stage conditions, review of expected trajectories going forward even with aggressive interventions overall prognosis poor. * family understanding of prognosis * Patients goals of care as best understood from advance directives and/or conversations and/or values * Current medical treatment options and benefits/burdens of those options * Legal decision makers per [place] statutes * CODE STATUS * Likely scenarios comparing ongoing aggressive care with a transition to comfort measures only-very limited exploration of comfort measures and that that would be the alternative to aggressive interventions, daughter not open to discussing this at this time. * Questions answered to the best of my ability * Palliative care contact information provided she repeatedly requests that we "do not let her ". She does endorse that the patient has in the past not wanted aggressive treatment for her lung cancer , has not wanted treatment for hepatitis, and would probably not want mechanical ventilation or other artificial measures however she indicates she "cannot make any decisions today "regarding CODE STATUS or other end-of-life options. She indicates she will be calling additional family out of town to notify the patient's condition. She requests cheese specialist for last rights. Discussed with primary nurse, critical care attending. Assessment and Plan Disease Oriented Problem List: (1) Small cell lung cancer (2) Hypokalemia (3) Cirrhosis (4) FLACA (acute kidney injury) (5) Lactic acid acidosis (6) Ascites (7) Hematemesis (8) UTI (urinary tract infection) (9) Rectal prolapse Symptom Scale: (1) Encephalopathy 0-10 Scale: Unable to quantify (2) Nausea 0-10 Scale: Unable to quantify (3) Pain, abdominal 0-10 Scale: Unable to quantify (4) Dyspnea 0-10 Scale: Unable to quantify Pertinent Non-Medical Issues Psychosocial: [place] . . Lived at home alone. To [facility] in the past few years. Has a daughter Estrella, significant other. Reported to have 2 other children who were adopted by an aunt as young children, patient and daughter have not remained in communication with them. Spiritual:Hinduism-cheese specialist has been notified by hospital odd shoe examiner Legal: Patient is currently not able to make decisions due to clinical condition , has had ongoing encephalopathy. Does not appear she will regain this ability. Per [place] statutes appropriate legal proxy would be: Her daughter Estrella. Reported to have 2 other children who were adopted by an aunt as young children, patient and daughter have not remained in communication with them. Ethical issues impacting care: Important Contacts Daughter Estrella [phone] Yoav Lipscomb (sig.other) [phone] . Prognosis This patient was admitted for hematemesis. She has known history of hepatitis C , cirrhosis, small cell lung cancer ([facility] She has been transferred to SICU for worsening resp status, and given multiple chronic medical conditions does remain high risk for ongoing complications and decline. Critical care :overall prognosis poor. Appropriate for hospice if goals compatible. . Plan * Legal decision maker: Patient is currently not able to make decisions due to clinical condition, has had ongoing encephalopathy. Does not appear she will regain this ability. Per [place] statutes appropriate legal proxy would be: Her daughter Estrella. Reported to have 2 other children who were adopted by an aunt as young children, patient and daughter have not remained in communication with them. * Goals: Daughter Estrella struggling with patient end-stage disease process and poor prognosis. She expresses aggressive goals, she wishes to continue every feeding available to help the patient recover. she repeatedly requests that we "do not let her ". She does endorse that the patient has in the past not wanted aggressive treatment for her lung cancer, has not wanted treatment for hepatitis, and would probably not want mechanical ventilation or other artificial measures however she indicates she "cannot make any decisions today "regarding CODE STATUS or other end-of-life options. * CODE STATUS: * SYMPTOMS: --nausea/vomiting-admitted for hematemesis. No ongoing hematemesis per report. Hx cirrhosis, hepatitis C-advanced liver disease. Has refused EGD. No evidence of nausea during my exam today though patient minimally responsive. High risk for bleeding with NG tube placement. --Encephalopathy- ? Metabolic. advanced liver disease, has been confused during hospitalization with no improvement. Has been on lactulose. Ammonia 20. --pain - hx abdominal pain. Currently obtunded unable to provide feedback regarding pain. Abdomen distended, has had ongoing ascites. --Dyspnea-multifactorial. Patient with ongoing ascites, most recent removal 5 L. + History small cell lung cancer, has not undergone treatment for. + Tachypneic requiring nonrebreather. CXR yesterday= Bilateral airspace disease that may represent mild edema with more confluent opacity in the upper right lung that can be characteristic of pneumonia If goals comfort oriented would benefit from prn opiates, benzodiazepines. * Palliative care will continue to follow during hospital course as condition evolves, to assist patient/decision-maker with understanding of medical conditions, weighing benefits/burdens of treatment options, for clarification of goals of treatment. Additionally will assist with any symptoms of palliative concern . Thank you for the opportunity to participate in the care of Ms. Melgar. Attestation To help prompt me to consider important information that might be impacting today's encounter and assessment, information from prior notes written by myself or my colleagues may have been "brought forward" into today's note. My signature on this note, however, is an attestation that I personally performed the exam, history, and/or decision-making noted today, and, unless otherwise indicated, the interactions with patient, family, and staff as well as the review of records all occurred today. I also attest that the listed assessment and stated plan reflect my best clinical judgment today based on the combination of historical information, prior notes, and today's exam/ interactions. When time spent is documented, it refers only to time spent today by the signer, or if indicated, combined time spent today by collaborating physician/nurse practitioner. Tori Hollins Jan 15, 2018 10:44
--- NOTE | 2018-01-15 12:12 | HHI.PR ---
Subjective Remarks Follow-up hepatic encephalopathy/upper GI bleed and now respiratory failure 01/13/18-patient seen and examined, alert and oriented 1, very destructive of care. Afebrile 01/14/18-patient seen and examined, still confused, no GI bleed, only oriented to self 01/15/18-patient seen and examined him a currently on partial nonrebreather secondary to respiratory failure and obtunded Objective Vitals Vital Signs Date Time Temp Pulse Resp B/P (MAP) Pulse Ox O2 Delivery O2 Flow Rate FiO2 01/15/18 10:45 85 15.00 01/15/18 10:00 116 01/15/18 09:00 112 01/15/18 08:45 92 Partial Non-Rebreather 15.00 01/15/18 08:45 98.5 115 22 115/59 (77) 92 01/15/18 08:45 116 01/15/18 08:15 91 Partial Rebreather 15.00 01/15/18 06:09 109 01/15/18 05:00 105 01/15/18 04:07 112 01/15/18 04:07 94 Non-Rebreather 01/15/18 04:07 98.4 109 22 105/58 (74) 94 01/15/18 03:00 110 01/15/18 02:00 104 01/15/18 01:00 106 01/15/18 00:00 116 01/14/18 23:00 94 Non-Rebreather 01/14/18 23:00 98.6 108 23 125/64 (84) 94 01/14/18 23:00 114 01/14/18 21:50 96 Non-Rebreather 12.00 01/14/18 19:57 112 24 106/62 (77) 92 01/14/18 19:52 110 28 137/68 (91) 82 01/14/18 19:20 84 6.00 01/14/18 17:01 110 01/14/18 16:00 102 01/14/18 15:01 97.9 104 20 107/41 (63) 90 01/14/18 15:01 90 Nasal Cannula 4.00 01/14/18 15:00 108 01/14/18 14:01 100 01/14/18 13:00 100 I/O 3/18/18 301/14/18 01/15/18 01/15/18 01/15/18 07:00 15:00 23:00 07:00 15:00 23:00 Intake Total 1360.7 ml 700 ml 240 ml 1600 ml Output Total 300 ml 200 ml 100 ml Balance 1060.7 ml 700 ml 40 ml 1500 ml Intake Oral 150 ml 240 ml IV Total 1210.7 ml 700 ml 1600 ml Output Urine Total 300 ml 200 ml 100 ml # Bowel Movements 2 0 0 Result Diagram: 01/14/18211401/14/182114 Imaging Last Impressions Abdomen Ultrasound 01/15/18 0000 Signed Impressions: Service Date/Time: Monday, January 15, 2018 08:26 - CONCLUSION: 1. Moderate amount of ascites. Omega Villagran MD Chest X-Ray 01/14/18 0000 Signed Impressions: Service Date/Time: Sunday, January 14, 2018 20:47 - CONCLUSION: 1. Bilateral airspace disease that may represent mild edema with more confluent opacity in the upper right lung that can be characteristic of pneumonia. Uvaldo Clemens MD Cyst Biopsy Asp-Paracentesis US 01/10/18 0000 Signed Impressions: Service Date/Time: Wednesday, January 10, 2018 14:33 - CONCLUSION: Uncomplicated ultrasound guided paracentesis. Andrews Toure MD Abdomen/Pelvis CT 01/09/182230 Signed Impressions: Service Date/Time: Wednesday, January 10, 2018 00:19 - CONCLUSION: 1. Cirrhosis with varicosities at the GE junction as well as within the left hemipelvis. 2. Circumferential wall thickening involving the lower thoracic esophagus. This could relate to venous congestion given the underlying cirrhotic liver. I cannot exclude an infiltrating mass. 3. Large volume ascites. 4. Anasarca. 5. Prior cholecystectomy. Steve King Jr., MD Abdomen X-Ray 01/09/18 0000 Signed Impressions: Service Date/Time: Tuesday, January 09, 2018 22:06 - CONCLUSION: Nonspecific, nonobstructive bowel gas pattern. Splenomegaly and suspected small ascites. Guille Elkins MD Objective Remarks GENERAL: Lethargic SKIN: Warm and dry. HEAD: Normocephalic. EYES: No scleral icterus. No injection or drainage. NECK: Supple, trachea midline. No JVD or lymphadenopathy. CARDIOVASCULAR: Regular rate and rhythm without murmurs, gallops, or rubs. RESPIRATORY: Breath sounds decreased bilaterally. No accessory muscle use. GASTROINTESTINAL: Abdomen soft, non-tender,+distended. MUSCULOSKELETAL: No cyanosis, or edema. BACK: Nontender without obvious deformity. No CVA tenderness. A/P Problem List: (1) Hematemesis ICD Code: K92.0 - Hematemesis Status: Acute (2) Ascites ICD Code: R18.8 - Other ascites Status: Acute (3) Cirrhosis ICD Code: K74.60 - Unspecified cirrhosis of liver Status: Chronic (4) FLACA (acute kidney injury) ICD Code: N17.9 - Acute kidney failure, unspecified Status: Acute (5) Lactic acid acidosis ICD Code: E87.2 - Acidosis Status: Acute (6) Respiratory failure ICD Code: J96.90 - Respiratory failure, unspecified, unspecified whether with hypoxia or hypercapnia Assessment and Plan 57-year-old female with Respiratory failure Check ABG and BiPAP when necessary Check BNP and treat accordingly Start Solu-Medrol 40 mg IV every 12 hours CCM consultation when necessary for evaluation for possible intubation Hematemesis, suspected related to varices and GI bleed-Resolved Abdomen CT reviewed and shows Cirrhosis with varicosities at the GE junction as well as within the left hemipelvis. -Monitor H&H -GI signed off 01/14 -s/p Protonix and Octreotide drip -Antiemetics as needed, Pentoxifylline, may need Steroids. refused EGD. Spontaneous Bacterial Peritonitis on Ceftriaxone and Flagyl. hepatitis C by history-chronic Lung cancer by history COPD on Bronchodilator, Mucolytic and incentive spirometry. Alcoholic hepatitis on [facility] protocol Ascites Abdominal CT reviewed and shows Large volume ascites. -US guided paracentesis showed SBP Hepatic encephalopathy Continue with lactulose, Trental, monitor ammonia level Acute Kidney Injury, Improved. DVT prophylaxis: SCDs, hold chemical due to hematemesis Palliative care consultation [place] [facility] [place]ifiers (1) Hematemesis: Qualified Codes: K92.0 - Hematemesis (2) Ascites: Qualified Codes: K70.31 - Alcoholic cirrhosis of liver with ascites Jean Carlos Rodriguez MD Jan 15, 2018 12:12
[2018-01-15] MEDS ORDERED: FUROSEMIDE 100 MG/10 ML VIAL IV PUSH ONE (12:30)
[2018-01-15] MEDS ORDERED: TERBUTALINE INJ 1 MG/ML AMP SQ PRN (12:30)
[2018-01-15] MEDS ORDERED: NOREPINEPHRINE-DEXTROSE DRIP 250 ML IV PRN (13:00)
--- NOTE | 2018-01-15 13:01 | PD.CONS ---
HPI Service Critical Care Medicine Consult Requested By [facility] Reason for Consult Hypoxemic Respiratory Failure Primary Care Physician [facility] History of Present Illness 57 y/o female with a history of COPD, Cirrhosis, Hep C, lung cancer (no treatment, being worked up by [facility]) presented to the ED with complaints of vomiting blood for the last day. Patient states the night before last she began to vomit blood. 2 weeks ago she had her gall bladder removed and since then she has has swelling of her bilateral lower extremities and abdomen. Patient denies ever having a paracentesis. She complains of abdominal pain, stabbing and cramping, 07/09, ice packs make it better, movement makes it worse with associated nausea. Denies any black or red colored stools. She denies any chest pain. Upon examination patient is tachycardic and hypotensive, denies any sob or fevers. 01/15: [facility]icat to [facility] for hypoxemic respiratory failure. Abdominal distention and lethargy is hampering ventilation and patient is hypoxemic. Comfortable now on NRBM. Ammonia 20. Past Family Social History Allergies: Coded Allergies: No Known Allergies (Verified Allergy, Unknown, 11/17/17) Past Medical History PFSH Past Family Social History Past Medical History COPD Cirrhosis Hep C lung cancer Past Surgical History Cholecystectomy C section Reported Medications Reported Meds & Active Scripts Active Allergies: Coded Allergies: No Known Allergies (Verified Allergy, Unknown, 11/17/17) Active Ordered Medications Current Medications Medications (Trade) Dose Ordered Sig/Shahram Route Start Time Stop Time Status Last Admin (NS Flush) 2 ml UNSCH PRN IVF 01/09/18 21:45 Octreotide Acetate 500 mcg/ Sodium Chloride 500.5 ml @ 50 mls/hr Q10H1M IV 01/09/18 21:43 01/09/18 23:40 Pantoprazole Sodium 80 mg/ Sodium Chloride 100 ml @ 10 mls/hr Q10H IV 01/09/18 21:43 01/09/18 22:59 (NS Flush) 2 ml UNSCH PRN IV FLUSH 01/10/18 02:45 (NS Flush) 2 ml BID IV FLUSH 01/10/18 09:00 (Narcan Inj) 0.4 mg UNSCH PRN IV PUSH 01/10/18 02:45 (Mephyton Liq) 5 mg DAILY PO 01/10/18 09:00 Family History Mom: Brain Cancer Dad: [place] Social History Tobacco use: 10/31 PPD Alcohol use: Last drink was Dec 13 Physical Exam Vital Signs Vital Signs Date Time Temp Pulse Resp B/P (MAP) Pulse Ox O2 Delivery O2 Flow Rate FiO2 01/15/18 12:00 93 Non-Rebreather 15.00 01/15/18 12:00 116 01/15/18 12:00 97.1 117 28 104/58 (73) 90 01/15/18 10:45 85 15.00 01/15/18 10:00 116 01/15/18 09:00 112 01/15/18 08:45 92 Partial Non-Rebreather 15.00 01/15/18 08:45 98.5 115 22 115/59 (77) 92 01/15/18 08:45 116 01/15/18 08:15 91 Partial Rebreather 15.00 01/15/18 06:09 109 01/15/18 05:00 105 01/15/18 04:07 112 01/15/18 04:07 94 Non-Rebreather 01/15/18 04:07 98.4 109 22 105/58 (74) 94 01/15/18 03:00 110 01/15/18 02:00 104 01/15/18 01:00 106 01/15/18 00:00 116 01/14/18 23:00 94 Non-Rebreather 01/14/18 23:00 98.6 108 23 125/64 (84) 94 01/14/18 23:00 114 01/14/18 21:50 96 Non-Rebreather 12.00 01/14/18 19:57 112 24 106/62 (77) 92 01/14/18 19:52 110 28 137/68 (91) 82 18 19:20 84 6.00 01/14/18 17:01 110 01/14/18 16:00 102 01/14/18 15:01 97.9 104 20 107/41 (63) 90 01/14/18 15:01 90 Nasal Cannula 4.00 01/14/18 15:00 108 01/14/18 14:01 100 01/14/18 13:00 100 Physical Exam Physical Exam GENERAL: Debilitated, jaundiced, stuporous woman. SKIN: No rashes, ecchymoses or lesions. Warm and dry. HEAD: Atraumatic. Normocephalic. EYES: Pupils equal round and reactive. Conjunctival icterus ENT: Nose without bleeding, purulent drainage or septal hematoma. Airway widely patent. NECK: Trachea midline. Supple, nontender, no meningeal signs. CARDIOVASCULAR: Regular rate and rhythm without murmurs, gallops, or rubs. + JVD RESPIRATORY: Clear to auscultation. Breath sounds markedly reduced in bases. Labored. GASTROINTESTINAL: Abdomen is tense and mildly tender, distended. Quiet. No peritoneal irritation. MUSCULOSKELETAL: Bilateral lower extremity edema +2 pitting. No joint tenderness , effusion, or edema noted. No calf tenderness. NEUROLOGICAL: Unresponsive except moaning to stimulation. Withdraws 4 limbs to stimulation. Laboratory Laboratory Tests Test 01/14/18 21:11 01/14/18 21:15 Blood Gas Puncture Site LT FEMORAL Blood Gas Patient Temperature 98.6 Blood Gas HCO3 21 Blood Gas Base Excess -3.4 Blood Gas Oxygen Saturation 82 Arterial Blood pH 7.35 Arterial Blood Partial Pressure CO2 40 Arterial Blood Partial Pressure O2 54 Arterial Blood Oxygen Content 13.3 Arterial Blood Carboxyhemoglobin 1.7 Arterial Blood Methemoglobin 1.1 Blood Gas Hemoglobin 11.5 Oxygen Delivery Device Venti Mask Blood Gas Liter Flow 6 Blood Gas Inspired Oxygen 50 White Blood Count 9.1 Red Blood Count 3.23 Hemoglobin 13.2 Hematocrit 37.5 Mean Corpuscular Volume 115.8 Mean Corpuscular Hemoglobin 40.9 Mean Corpuscular Hemoglobin Concent 35.3 Red Cell Distribution Width 16.2 Platelet Count 97 Mean Platelet Volume 7.7 CBC Comment AUTO DIFF Differential Total Cells Counted 100 Neutrophils % (Manual) 86 Band Neutrophils % 1 Lymphocytes % 7 Monocytes % 6 Neutrophils # (Manual) 7.9 Nucleated Red Blood Cells 1 Differential Comment FINAL DIFF MANUAL Platelet Estimate LOW Platelet Morphology Comment NORMAL Tear Drop Cells 1+ Ovalocytes 1+ Blood Urea Nitrogen 11 Creatinine 0.58 Random Glucose 88 Calcium Level 8.2 Sodium Level 147 Potassium Level 3.8 Chloride Level 113 Carbon Dioxide Level 22.2 Anion Gap 12 Estimat Glomerular Filtration Rate 108 Date/Time Source Procedure Growth Status 01/10/18 15:10 Fluid Peritoneal Fluid Gram Stain - Final Complete 01/10/18 15:10 Fluid Peritoneal Fluid Body Fluid Culture - Final NO GROWTH IN 72 HRS.--AEROBICALLY OR ... Complete 3/14/18 06:00 Urine Catheterized Urine Urine Culture - Final Escherichia Coli Complete Result Diagram: 01/14/18211401/14/182114 Assessment and Plan Assessment and Plan Assessment and Plan Problem List: 1. Hypoxemic Respiratory Failure (2) Hematemesis ICD Code: K92.0 - Hematemesis Status: Acute (3) Ascites ICD Code: R18.8 - Other ascites Status: Acute (4) Cirrhosis ICD Code: K74.60 - Unspecified cirrhosis of liver Status: Chronic (5) FLACA (acute kidney injury) ICD Code: N17.9 - Acute kidney failure, unspecified Status: Acute (6) Lactic acid acidosis ICD Code: E87.2 - Acidosis (7) Hepatic Encephalopathy Status: Acute Plan: 57 y/o female with a history of COPD, Cirrhosis, Hep C, lung cancer (no treatment, [facility]) presented to the ED with complaints of vomiting blood , now resolved. Hypoxemia - NRBM - Diuretics for ascites. Hematemesis, suspected related to varices and GI bleed Abdomen CT reviewed and shows Cirrhosis with varicosities at the GE junction as well as within the left hemipelvis. -Monitor H&H -Consult GI for recommendations -> endoscopy. Patient decided against procedure. -Protonix and Octreotide drip discontinued by GI. -Antiemetics as needed Ascites Abdominal CT reviewed and shows Large volume ascites. -US guided paracentesis performed, almost immediate recurrence Tachycardia and hypotension, 130s upon examination, BP 84/46 -Albumin IV x 1 given -Stat H&H ordered -Place Motley for urinary retentions, this may decrease HR Acute Kidney Injury, creatine 1.35, baseline .48 -NS 1L given in ED, caution with fluids due to ascites -Trend creatine, renal US if kidney function does not improve - Resolved. Lactic acidosis, lactic 6.8, likely due to ascites, patient does not appear septic, no wbc or fevers -Repeat lactic acid -Cover for SBP as this can not be excluded with IV antibiotics Rocephin and Flagyl DVT prophylaxis: SCDs, hold chemical due to hematemesis Discussed Condition With RN Lengthy talk with her daughter and boyfriend at the bedside. I emphasized that her mother is dying of liver failure from long-standing alcoholism and untreated active Hepatitis C. She acknowledges that her mother drank Absolute Vodka daily for many years, mother refused treatment for Hepatitis C, mother refused treatment for lung cancer. I explained to her that her mother is actively dying from liver failure and that she will during this hospitalization. Daughter still wants full code status but she wants to be assured that her mother is not in pain. She specifically requested doubling the morphine and ativan dose because she feels her mother is in pain. Overall impression: Patient is critically ill with end-stage cirrhosis and intractable ascites, presently causing respiratory failure. Remains coagulopathic and encephalopathic. In view of refusal for endoscopy there are no other options for inspection of varices. Her bleeding appears to have stopped and her abdominal distention is a major obstacle to ventilation. I will try to diurese her and remove more ascites but suitable options are limited. Prognosis quite poor. Critical Care 45 mins Problem Qualifiers (1) Hematemesis: Qualified Codes: K92.0 - Hematemesis (2) Ascites: Qualified Codes: K70.31 - Alcoholic cirrhosis of liver with ascites I have met with the patient's daughter. Patient had a DNR/DNI order at the [facility], the daughter discussed the current condition with the rest of the family and relatives and they all agree that we should respect the patient's wishes. The daughter is more concerned that we should focus the level of care to comfort care rather than aggressive treatment. I agree this is the most human decision at the current situation and the patient's condition, and I will honor the patient's, daughters, and the family members wishes and placed DNR order on the chart. Mark Levine MD Jan 15, 2018 13:01 Jefry Zhou MD Jan 15, 2018 21:39
[2018-01-15] MEDS ORDERED: LORazepam 2 MG/ML VIAL IV PRN (17:00)
[2018-01-15] MEDS ORDERED: HYDROmorphone HCL PF 2 MG/ML VIAL IV PUSH PRN (18:00)
[2018-01-15] MEDS ORDERED: FUROSEMIDE INJ 100 MG in SODIUM CHLORIDE 0.9% INJ 90 ML IV SCH (20:00)
[2018-01-15] MEDS ORDERED: methylPREDNISolone SOD SUCC 40 MG/1 ML VIAL IV PUSH SCH (21:00)
[2018-01-15] MEDS ORDERED: MORPHINE SULFATE 8 MG/ML INJ IV PUSH ONE (21:45)
[2018-01-15] MEDS ORDERED: LORazepam 2 MG/ML VIAL IV PUSH ONE (21:45)
[2018-01-15] MEDS ORDERED: MORPHINE SULFATE 4 MG/ML INJ IV PUSH PRN (21:45)
[2018-01-16] VITALS (10 sets, daily range): BP systolic 48–89; BP diastolic 25–52; PULSE 62–113; RESP 13–22; TEMP 97.4–98; O2SAT 82–88
--- NOTE | 2018-01-16 15:17 | HHI.HCPN ---
Reason for visit a. To assist with evaluation and management of symptoms including: dyspnea, pain, nausea b. To assist medical decision maker(s) with: better understanding of current medical conditions; weighing benefits/burdens of medical treatment options; making medical treatment decisions. Subjective/Interval History Pt seen today to follow up on comfort, goals. Pt remains in ICU. Critical care met with family after palliative yesterday, daughter elected DNR and requested comfort measures for pain/dyspnea. No new labs/imaging. Pt condition declining. She is essentially receiving comfort measures only. On NRB mask. Pt pamela in room w daughter, dtr cousin and a friend present. Pt non responsive to my exam. Gently explore condition w dtr and her discussion with Dr Junior. Dtr endorses understanding that the patient is dying however she also appears to be struggling and does not wish us to take away any current treatments (ie nrb) She states that she does not want her to be in pain or have any type of suffering when she does , but she wants as long as she may have with her. She expresses concern over low blood pressure currently 40s systolic and that that is "bad ". Gently explore with her that hypotension is expected as patient is dying and the blood pressure will continue to follow until her heart ceases to function. Offer support and that we can continue to provide comfort during this process for patient. She asks how long the pt has-- explore difficult to predict but based on current assessment possibly hours to a day or so. She is tearful needs to step out of the room with her family, ends our conversation. Discuss with primary nurse, would want to further explore decreasing nonrebreather O2 to nasal cannula as nonrebreather not likely providing additional comfort at this point. She will discuss with family when they return. patient appropriate for hospice however daughter does not seem open to further discussions about any other changes in care at this time. She is essentially receiving comfort treatment only in the ICU setting. . Advance Directives Living Will: Never completed Health Care Surrogate: Never completed Durable Power of Supervisor Melt House: Never completed Objective Vital Signs Date Time Temp Pulse Resp B/P (MAP) Pulse Ox O2 Delivery O2 Flow Rate FiO2 01/16/18 14:00 83 01/16/18 12:00 84 Non-Rebreather 15.00 01/16/18 12:00 88 01/16/18 12:00 97.7 88 18 53/25 (34) 84 01/16/18 10:00 88 01/16/18 08:00 90 01/16/18 08:00 84 Non-Rebreather 15.00 01/16/18 08:00 97.6 92 20 62/36 (45) 84 01/16/18 06:00 110 01/16/18 04:00 88 Non-Rebreather 15.00 01/16/18 04:00 112 01/16/18 04:00 98.0 112 22 82/50 (61) 87 01/16/18 02:00 109 01/16/18 00:00 87 Non-Rebreather 15.00 01/16/18 00:00 113 01/16/18 00:00 97.9 110 20 89/52 (64) 88 01/15/18 22:00 111 01/15/18 20:22 89 Non-Rebreather 15.00 01/15/18 20:00 98.0 111 22 92/51 (65) 89 01/15/18 20:00 110 01/15/18 20:00 90 Non-Rebreather 15.00 01/15/18 19:00 111 83/46 01/15/18 16:00 92 Non-Rebreather 15.00 01/15/18 16:00 97.2 113 21 101/51 (68) 92 01/15/18 16:00 114 Intake & Output 01/16/18 01/16/18 07:00 19:00 Intake Total 0 ml Output Total 150 ml Balance -150 ml Intake Oral 0 ml Output Urine Total 150 ml # Bowel Movements 0 Physical Exam CONSTITUTIONAL/GENERAL: This is a frail, chronically ill appearing patient, minimally responsive TUBES/LINES/DRAINS: Peripheral IV upper extremity, nonrebreather mask, Motley catheter SKIN: + jaundice. Few healed lesions to upper extremities. No wounds seen anteriorly. Skin warm/dry. ENT: Nose without bleeding or purulent drainage. Does not open mouth for oropharynx exam. NECK: Trachea midline. Supple, nontender. No palpable thyroid enlargement or nodularity. CARDIOVASCULAR: Regular rate and rhythm without murmur. Generalized edema, especially to extremities. Distal feet, toes are cold and mottled. Fingertips are cool but no mottling present. RESPIRATORY/CHEST: Symmetric, mildly labored respirations. Some accessory muscle use. Clear to auscultation / diminished air movement throughout GASTROINTESTINAL: Abdomen soft, appears tender, +distended, + ascites. No palpable masses-limited palpation secondary to distention and ascites. Bowel sounds intermittent/very infrequent GENITOURINARY: Without palpable bladder distension. Motley catheter in place- dark tea-colored urine present. MUSCULOSKELETAL: Extremities without clubbing, cyanosis. + Edema to distal extremities. Distal feet, toes are cold and mottled. Fingertips are cool but no mottling present. NEUROLOGICAL: Minimally responsive to exam. No eye opening. Occasional groaning sound. Intermittently localizes to touch on 4 extremities and moves extremities spontaneously. Does not follow commands. PSYCHIATRIC: No obvious anxiety--limited assessment secondary to clinical condition. . Diagnostic Tests Laboratory Laboratory Tests Test 01/14/18 11:39 01/14/18 21:11 01/14/18 21:15 Blood Urea Nitrogen 10 MG/DL (7-18) 11 MG/DL (7-18) Creatinine 0.51 MG/DL (0.50-1.00) 0.58 MG/DL (0.50-1.00) Random Glucose 101 MG/DL (74-106) 88 MG/DL (74-106) Total Protein 6.6 GM/DL (6.4-8.2) Albumin 2.1 GM/DL (3.4-5.0) Calcium Level 7.9 MG/DL (8.5-10.1) 8.2 MG/DL (8.5-10.1) Alkaline Phosphatase 121 U/L (45-117) Aspartate Amino Transf (AST/SGOT) 68 U/L (15-37) Alanine Aminotransferase (ALT/SGPT) 36 U/L (10-53) Total Bilirubin 2.7 MG/DL (0.2-1.0) Sodium Level 146 MEQ/L (136-145) 147 MEQ/L (136-145) Potassium Level 3.8 MEQ/L (3.5-5.1) 3.8 MEQ/L (3.5-5.1) Chloride Level 114 MEQ/L (98-107) 113 MEQ/L (98-107) Carbon Dioxide Level 24.0 MEQ/L (21.0-32.0) 22.2 MEQ/L (21.0-32.0) Anion Gap 8 MEQ/L (5-15) 12 MEQ/L (5-15) Estimat Glomerular Filtration Rate 125 ML/MIN (>89) 108 ML/MIN (>89) Ammonia 20 MCMOL/L (11-32) Blood Gas Puncture Site LT FEMORAL Blood Gas Patient Temperature 98.6 Blood Gas HCO3 21 mmol/L (22-26) Blood Gas Base Excess -3.4 mmol/L (-2-2) Blood Gas Oxygen Saturation 82 % (90-100) Arterial Blood pH 7.35 (7.380-7.420) Arterial Blood Partial Pressure CO2 40 mmHg (38-42) Arterial Blood Partial Pressure O2 54 mmHg (61-120) Arterial Blood Oxygen Content 13.3 Vol % (12.0-20.0) Arterial Blood Carboxyhemoglobin 1.7 % (0-4) Arterial Blood Methemoglobin 1.1 % (0-2) Blood Gas Hemoglobin 11.5 G/DL (12.0-16.0) Oxygen Delivery Device Venti Mask Blood Gas Liter Flow 6 L/M Blood Gas Inspired Oxygen 50 % White Blood Count 9.1 TH/MM3 (4.0-11.0) Red Blood Count 3.23 MIL/MM3 (4.00-5.30) Hemoglobin 13.2 GM/DL (11.6-15.3) Hematocrit 37.5 % (35.0-46.0) Mean Corpuscular Volume 115.8 FL (80.0-100.0) Mean Corpuscular Hemoglobin 40.9 PG (27.0-34.0) Mean Corpuscular Hemoglobin Concent 35.3 % (32.0-36.0) Red Cell Distribution Width 16.2 % (11.6-17.2) Platelet Count 97 TH/MM3 (150-450) Mean Platelet Volume 7.7 FL (7.0-11.0) CBC Comment AUTO DIFF Differential Total Cells Counted 100 Neutrophils % (Manual) 86 % (16-70) Band Neutrophils % 1 % (0-6) Lymphocytes % 7 % (9-44) Monocytes % 6 % (0-8) Neutrophils # (Manual) 7.9 TH/MM3 (1.8-7.7) Nucleated Red Blood Cells 1 /100 WBC (0-0) Differential Comment FINAL DIFF MANUAL Platelet Estimate LOW (NORMAL) Platelet Morphology Comment NORMAL (NORMAL) Tear Drop Cells 1+ (NORMAL) Ovalocytes 1+ (NORMAL) Result Diagram: 01/14/18211401/14/182114 Imaging Last Impressions Abdomen Ultrasound 01/15/18 0000 Signed Impressions: Service Date/Time: Monday, January 15, 2018 08:26 - CONCLUSION: 1. Moderate amount of ascites. Omega Villagran MD Chest X-Ray 01/14/18 0000 Signed Impressions: Service Date/Time: Sunday, January 14, 2018 20:47 - CONCLUSION: 1. Bilateral airspace disease that may represent mild edema with more confluent opacity in the upper right lung that can be characteristic of pneumonia. Uvaldo Clemens MD Cyst Biopsy Asp-Paracentesis US 01/10/18 0000 Signed Impressions: Service Date/Time: Wednesday, January 10, 2018 14:33 - CONCLUSION: Uncomplicated ultrasound guided paracentesis. Andrews Toure MD Abdomen/Pelvis CT 01/09/181 Signed Impressions: Service Date/Time: Wednesday, January 10, 2018 00:19 - CONCLUSION: 1. Cirrhosis with varicosities at the GE junction as well as within the left hemipelvis. 2. Circumferential wall thickening involving the lower thoracic esophagus. This could relate to venous congestion given the underlying cirrhotic liver. I cannot exclude an infiltrating mass. 3. Large volume ascites. 4. Anasarca. 5. Prior cholecystectomy. Steve King Jr., MD Abdomen X-Ray 01/09/18 0000 Signed Impressions: Service Date/Time: Tuesday, January 09, 2018 22:06 - CONCLUSION: Nonspecific, nonobstructive bowel gas pattern. Splenomegaly and suspected small ascites. Guille Elkins MD Assessment and Plan Disease Oriented Problem List: (1) Small cell lung cancer (2) Hypokalemia (3) Cirrhosis (4) FLACA (acute kidney injury) (5) Lactic acid acidosis (6) Ascites (7) Hematemesis (8) UTI (urinary tract infection) (9) Rectal prolapse Symptom Scale: (1) Encephalopathy 0-10 Scale: Unable to quantify (2) Nausea 0-10 Scale: Unable to quantify (3) Pain, abdominal 0-10 Scale: Unable to quantify (4) Dyspnea 0-10 Scale: Unable to quantify Pertinent Non-Medical Issues Psychosocial: [place] . . Lived at home alone. To [facility] in the past few years. Has a daughter Estrella, significant other. Reported to have 2 other children who were adopted by an aunt as young children, patient and daughter have not remained in communication with them. 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 Does not appear she will regain this ability. Per [place] statutes appropriate legal proxy would be: Her daughter Estrella. Reported to have 2 other children who were adopted by an aunt as young children, patient and daughter have not remained in communication with them. Ethical issues impacting care: Important Contacts Daughter Estrella [phone] Yoav Deisi (sig.other) [phone] . Prognosis This patient was admitted for hematemesis. She has known history of hepatitis C , cirrhosis, small cell lung cancer ([facility] She has been transferred to SICU for worsening resp status, and given multiple chronic medical conditions does remain high risk for ongoing complications and decline. Critical care :overall prognosis poor. Appropriate for hospice if goals compatible. . Plan * Legal decision maker: Patient is currently not able to make decisions due to clinical condition, has had ongoing encephalopathy. Does not appear she will regain this ability. Per [place] statutes appropriate legal proxy would be: Her daughter Estrella. Reported to have 2 other children who were adopted by an aunt as young children, patient and daughter have not remained in communication with them. * Goals: Daughter Estrella has struggled with patient's decline, and her end-stage disease process. She yesterday afternoon elected DNR, and has since requested comfort measures for her. Patient would be appropriate for hospice however I was not able to discuss this today with daughter, she does not appear open to further transitions as she is already struggling with patient current status. Daughter has requested essentially comfort measures only, without hospice involvement. * CODE STATUS: DNR * SYMPTOMS: --nausea/vomiting-admitted for hematemesis. No ongoing hematemesis per report. Hx cirrhosis, hepatitis C-advanced liver disease. Has refused EGD. No evidence of nausea during my exam today though patient minimally responsive. High risk for bleeding with NG tube placement. --Encephalopathy- ? Metabolic. advanced liver disease, has been confused during hospitalization with no improvement. Has been on lactulose. Ammonia 20. --pain - hx abdominal pain. Currently obtunded unable to provide feedback regarding pain. Abdomen distended, has had ongoing ascites. --Dyspnea-multifactorial. Patient with ongoing ascites, most recent removal 5 L. + History small cell lung cancer, has not undergone treatment for. + Tachypneic requiring nonrebreather. CXR yesterday= Bilateral airspace disease that may represent mild edema with more confluent opacity in the upper right lung that can be characteristic of pneumonia If goals comfort oriented would benefit from prn opiates, benzodiazepines. Critical care has added PRN morphine for dyspnea. Would also recommend PRN benzodiazepine for associated anxiety. * Palliative care will continue to follow during hospital course as condition evolves, to assist patient/decision-maker with understanding of medical conditions, weighing benefits/burdens of treatment options, for clarification of goals of treatment. Additionally will assist with any symptoms of palliative concern . Attestation To help prompt me to consider important information that might be impacting today's encounter and assessment, information from prior notes written by myself or my colleagues may have been "brought forward" into today's note. My signature on this note, however, is an attestation that I personally performed the exam, history, and/or decision-making noted today, and, unless otherwise indicated, the interactions with patient, family, and staff as well as the review of records all occurred today. I also attest that the listed assessment and stated plan reflect my best clinical judgment today based on the combination of historical information, prior notes, and today's exam/ interactions. When time spent is documented, it refers only to time spent today by the signer, or if indicated, combined time spent today by collaborating physician/nurse practitioner. Tori Hollins Jan 16, 2018 15:17
--- NOTE | 2018-01-16 15:45 | HHI.CCPN ---
Subjective Remarks/Hospital Course 57 y/o female with a history of COPD, Cirrhosis, Hep C, lung cancer (no treatment, [facility]) presented to the ED with complaints of vomiting blood for the last day. Patient states the night before last she began to vomit blood. 2 weeks ago she had her gall bladder removed and since then she has has swelling of her bilateral lower extremities and abdomen. Patient denies ever having a paracentesis. She complains of abdominal pain, stabbing and cramping, 9/10, ice packs make it better, movement makes it worse with associated nausea. Denies any black or red colored stools. She denies any chest pain. Upon examination patient is tachycardic and hypotensive, denies any sob or fevers. 01/15: Halicat to [facility] for hypoxemic respiratory failure. Abdominal distention and lethargy is hampering ventilation and patient is hypoxemic. Comfortable now on NRBM. Ammonia 20. 01/16: Patient is deteriorating clinically and has been made DNR status by her daughter. Palliative Care service has helped immensely with a very stressful situation for the daughter. At this point all are in agreement for comfort measures only and natural is proceeding as expected in this patient with very late stage hepatic failure. Objective Vital Signs Date Time Temp Pulse Resp B/P (MAP) Pulse Ox O2 Delivery O2 Flow Rate FiO2 01/16/18 14:00 83 01/16/18 12:00 84 Non-Rebreather 15.00 01/16/18 12:00 97.7 18 53/25 (34) Intake and Output 01/16/18 01/16/18 01/17/18 08:00 16:00 00:00 Intake Total 0 ml Output Total 150 ml Balance -150 ml Result Diagram: 01/14/18211401/14/182114 Objective Remarks Physical Exam GENERAL: Debilitated, jaundiced, unresponsive woman. SKIN: No rashes, ecchymoses or lesions. Warm and dry. HEAD: Atraumatic. Normocephalic. EYES: Pupils equal round and reactive. Conjunctival icterus ENT: Nose without bleeding, purulent drainage or septal hematoma. Airway widely patent, some snoring.. NECK: Trachea midline. Supple, nontender, no meningeal signs. CARDIOVASCULAR: Regular rate and rhythm without murmurs, gallops, or rubs. + JVD RESPIRATORY: Clear to auscultation. Breath sounds markedly reduced in bases. GASTROINTESTINAL: Abdomen is tense and mildly tender, distended. Quiet. No peritoneal irritation. MUSCULOSKELETAL: Bilateral lower extremity edema +2 pitting. No joint tenderness , effusion, or edema noted. No calf tenderness. NEUROLOGICAL: Unresponsive. Appears comfortable. A/P Assessment and Plan Assessment and Plan Problem List: 1. Hypoxemic Respiratory Failure (2) Hematemesis ICD Code: K92.0 - Hematemesis Status: Acute (3) Ascites ICD Code: R18.8 - Other ascites Status: Acute (4) Cirrhosis ICD Code: K74.60 - Unspecified cirrhosis of liver Status: Chronic (5) FLACA (acute kidney injury) ICD Code: N17.9 - Acute kidney failure, unspecified Status: Acute (6) Lactic acid acidosis ICD Code: E87.2 - Acidosis (7) Hepatic Encephalopathy Status: Acute Plan: 57 y/o female with a history of COPD, Cirrhosis, Hep C, lung cancer (no treatment, [facility]) presented to the ED with complaints of vomiting blood , now resolved. Hypoxemia - NRBM - Diuretics for ascites. Hematemesis, suspected related to varices and GI bleed Abdomen CT reviewed and shows Cirrhosis with varicosities at the GE junction as well as within the left hemipelvis. -Monitor H&H -Consult GI for recommendations -> endoscopy. Patient decided against procedure. -Protonix and Octreotide drip discontinued by GI. -Antiemetics as needed -No more vomiting. Ascites Abdominal CT reviewed and shows Large volume ascites. -US guided paracentesis performed, almost immediate recurrence Tachycardia and hypotension, 130s upon examination, BP 84/46 -Albumin IV x 1 given -Stat H&H ordered -Place Motley for urinary retention, this may decrease HR Acute Kidney Injury, creatine 1.35, baseline .48 -NS 1L given in ED, caution with fluids due to ascites -Trend creatine, renal US if kidney function does not improve - Resolved. Lactic acidosis, lactic 6.8, likely due to ascites, patient does not appear septic, no wbc or fevers -Repeat lactic acid -Cover for SBP as this can not be excluded with IV antibiotics Rocephin and Flagyl DVT prophylaxis: SCDs, hold chemical due to hematemesis Discussed Condition With RN Lengthy talk yesterday with her daughter and boyfriend at the bedside. I emphasized that her mother is dying of liver failure from long-standing alcoholism and untreated active Hepatitis C. She acknowledges that her mother drank Absolute Vodka daily for many years, mother refused treatment for Hepatitis C, mother refused treatment for lung cancer. I explained to her that her mother is actively dying from liver failure and that she will during this hospitalization. Daughter still wants full code status but she wants to be assured that her mother is not in pain. She specifically requested doubling the morphine and ativan dose because she feels her mother is in pain. Overall impression: Patient is critically ill with end-stage cirrhosis and intractable ascites, presently causing respiratory failure. Remains coagulopathic and encephalopathic. In view of refusal for endoscopy there are no other options for inspection of varices. Her bleeding appears to have stopped and her abdominal distention is a major obstacle to ventilation. She is now DNR and receiving comfort measures. Problem Qualifiers (1) Hematemesis: Qualified Codes: K92.0 - Hematemesis (2) Ascites: Qualified Codes: K70.31 - Alcoholic cirrhosis of liver with ascites Mark Levine MD Jan 16, 2018 15:45
[2018-01-17 06:30] LABS: ALPHA-1-ANTITRYPSIN 83 mg/dL (100 - 190); HEREDITARY HEMOCHROM SPECIMEN WB Whole Blood
--- NOTE | 2018-01-17 10:23 | HHI.DS ---
Discharge Summary Admission Date Jan 10, 2018 at 02:50 Discharge Date: Jan 16, 2018 Admitting Diagnosis HEMATEMESIS, TENSE ASCITES (1) Hematemesis ICD Code: K92.0 - Hematemesis Status: Acute (2) Ascites ICD Code: R18.8 - Other ascites Status: Acute (3) Cirrhosis ICD Code: K74.60 - Unspecified cirrhosis of liver Status: Chronic (4) FLACA (acute kidney injury) ICD Code: N17.9 - Acute kidney failure, unspecified Status: Acute (5) Lactic acid acidosis ICD Code: E87.2 - Acidosis Status: Acute (6) Respiratory failure ICD Code: J96.90 - Respiratory failure, unspecified, unspecified whether with hypoxia or hypercapnia Brief History 57 y/o female with a history of COPD, Cirrhosis, Hep C, lung cancer (no treatment, [facility]) presented to the ED with complaints of vomiting blood for the last day. Patient states the night before last she began to vomit blood. 2 weeks ago she had her gall bladder removed and since then she has has swelling of her bilateral lower extremities and abdomen. Patient denies ever having a paracentesis. She complains of abdominal pain, stabbing and cramping, 9/10, ice packs make it better, movement makes it worse with associated nausea. Denies any black or red colored stools. She denies any chest pain. Upon examination patient is tachycardic and hypotensive, denies any sob or fevers. Patient states she is not on medication because the [facility] will not [facility] her the medication. CBC/BMP: 01/14/18211401/14/182114 Significant Findings Laboratory Tests Test 01/14/18 11:39 01/14/18 21:11 01/14/18 21:15 Albumin 2.1 GM/DL (3.4-5.0) Calcium Level 7.9 MG/DL (8.5-10.1) 8.2 MG/DL (8.5-10.1) Alkaline Phosphatase 121 U/L (45-117) Aspartate Amino Transf (AST/SGOT) 68 U/L (15-37) Total Bilirubin 2.7 MG/DL (0.2-1.0) Sodium Level 146 MEQ/L (136-145) 147 MEQ/L (136-145) Chloride Level 114 MEQ/L (98-107) 113 MEQ/L (98-107) Blood Gas HCO3 21 mmol/L (22-26) Blood Gas Base Excess -3.4 mmol/L (-2-2) Blood Gas Oxygen Saturation 82 % (90-100) Arterial Blood pH 7.35 (7.380-7.420) Arterial Blood Partial Pressure O2 54 mmHg (61-120) Blood Gas Hemoglobin 11.5 G/DL (12.0-16.0) Red Blood Count 3.23 MIL/MM3 (4.00-5.30) Mean Corpuscular Volume 115.8 FL (80.0-100.0) Mean Corpuscular Hemoglobin 40.9 PG (27.0-34.0) Platelet Count 97 TH/MM3 (150-450) Neutrophils % (Manual) 86 % (16-70) Lymphocytes % 7 % (9-44) Neutrophils # (Manual) 7.9 TH/MM3 (1.8-7.7) Nucleated Red Blood Cells 1 /100 WBC (0-0) Platelet Estimate LOW (NORMAL) Tear Drop Cells 1+ (NORMAL) Ovalocytes 1+ (NORMAL) PE at Discharge Transfer Summary Patient made DNR status and at 1945 hours on 01/16/18 of end-stage hepatic failure. Hospital Course 57 y/o female with a history of COPD, Cirrhosis, Hep C, lung cancer (no treatment, [facility]) presented to the ED with complaints of vomiting blood for the last day. Patient states the night before last she began to vomit blood. 2 weeks ago she had her gall bladder removed and since then she has has swelling of her bilateral lower extremities and abdomen. Patient denies ever having a paracentesis. She complains of abdominal pain, stabbing and cramping, 07/09, ice packs make it better, movement makes it worse with associated nausea. Denies any black or red colored stools. She denies any chest pain. Upon examination patient is tachycardic and hypotensive, denies any sob or fevers. 01/15: Halicat to [facility] for hypoxemic respiratory failure. Abdominal distention and lethargy is hampering ventilation and patient is hypoxemic. Comfortable now on NRBM. Ammonia 20. 01/16: Patient is deteriorating clinically and has been made DNR status by her daughter. Palliative Care service has helped immensely with a very stressful situation for the daughter. At this point all are in agreement for comfort measures only and natural is proceeding as expected in this patient with very late stage hepatic failure. Pt Condition on Discharge: Deteriorating Mark Levine MD Jan 17, 2018 10:23
== END 2018-01-16 19:45 | disposition expired | DRG 441 ==
LOC: NEPE 20:21 → NEDA 01-10 02:50 → NEDH 01-10 06:42 → HCPC 01-10 15:21 → HCIS 01-11 18:48 → HCPC 01-14 22:15 → N03B 01-15 10:45
PROVIDERS: ADMIT Surgery Surgical Critical Care; ATTEND Surgery Surgical Critical Care
PROC: 0W9G3ZZ Drainage of Peritoneal Cavity, Percutaneous Approach (ICD-10-PCS; principal; 2018-01-10)
PROC: 0T9B70Z Drainage of Bladder with Drainage Device, Via Natural or Artificial Opening (ICD-10-PCS; 2018-01-10)
DX: K72.10 Chronic hepatic failure without coma (principal); J96.91 Respiratory failure, unspecified with hypoxia; K70.31 Alcoholic cirrhosis of liver with ascites; K76.7 Hepatorenal syndrome; K65.2 Spontaneous bacterial peritonitis; N17.9 Acute kidney failure, unspecified; E87.2 Acidosis; I95.9 Hypotension, unspecified; K92.2 Gastrointestinal hemorrhage, unspecified; C34.90 Malignant neoplasm of unspecified part of unspecified bronchus or lung; N39.0 Urinary tract infection, site not specified; J44.9 Chronic obstructive pulmonary disease, unspecified; B19.20 Unspecified viral hepatitis C without hepatic coma; R00.0 Tachycardia, unspecified; K72.90 Hepatic failure, unspecified without coma; E83.119 Hemochromatosis, unspecified; K62.3 Rectal prolapse; Z66 Do not resuscitate; F17.210 Nicotine dependence, cigarettes, uncomplicated; Z51.5 Encounter for palliative care; F41.9 Anxiety disorder, unspecified; K44.9 Diaphragmatic hernia without obstruction or gangrene; Z77.090 Contact with and (suspected) exposure to asbestos; K52.9 Noninfective gastroenteritis and colitis, unspecified; E87.6 Hypokalemia; Z87.11 Personal history of peptic ulcer disease; Z90.49 Acquired absence of other specified parts of digestive tract
CPT/HCPCS: 36600; 49083; 51702; 71045; 74019; 74177; 76705; 80048; 80053; 80307; 81001; 81256; 82042; 82103; 82140; 82805; 82945; 82948; 83605; 83615; 83690; 83735; 84100; 84132; 84157; 85007; 85014; 85018; 85025; 85027; 85610; 85730; 86850; 86900; 86901; 86922; 87070; 87077; 87086; 87186; 87205; 88112; 88305; 89051; 96365; 96366; 96375; C1729; C9113; J0696; J1940; J2060; J2270; J2354; J2405; J3411; J3475; J3480; J7030; J7040; P9047; Q9967